=== PATIENT | male | born 1940 | race Caucasian/White ===

== ENCOUNTER 2017-06-05 08:19 | Outpatient (CLI) | payer MEDICARE ==
--- NOTE | 2017-06-05 08:45 | RAD ---
PA AND LATERAL VIEWS CHEST: HISTORY: Cough. FINDINGS: Comparison is made with the exam of 11/13/16. Changes of median sternotomy are again seen. Cardiomegaly persists. No confluent areas of consolida tion, pneumothorax, or pleural effusions are noted. Calcified pleural plaques are redemonstrated in the apices. There are mild degenerative changes in the spine. IMPRESSION: No radiographic evidence of acute cardiopulmonary process. POS: [facility]
== END 2017-06-05 08:20 | disposition home or self-care (01) ==
LOC: RAD-FRANK 08:19
PROVIDERS: ATTEND Nurse Practitioner Family
DX: R05 Cough (principal)
CPT/HCPCS: 71046

== ENCOUNTER 2018-02-02 15:19 | Outpatient (CLI) | payer MEDICARE ==
--- NOTE | 2018-02-02 16:50 | RAD ---
PA AND LATERAL CHEST: Comparison: 06-05-17 History: Shortness of breath. FINDINGS: Heart size is upper limits of normal with post op sternotomy changes. There has been development of a right hilar fullness with parenchymal changes involving the right middle lobe but also appear to be some changes in the lower lobe. Changes are probably related to an infiltrative process. An underlyin g mass is not totally excluded but no mass is appreciated on the previous exam. I would recommend fol low up chest films to resolution. IMPRESSION: 1. Right middle lobe and right lower lobe and parahilar parenchymal changes, probably related to infi ltrate. Underlying mass is not excluded and follow up is recommended. POS: [facility]
== END 2018-02-02 15:20 | disposition home or self-care (01) ==
LOC: RAD-FRANK 15:19
PROVIDERS: ATTEND Nurse Practitioner Family
DX: R06.02 Shortness of breath (principal)
CPT/HCPCS: 71046

== ENCOUNTER 2018-02-09 09:49 | Outpatient (CLI) | payer MEDICARE ==
--- NOTE | 2018-02-09 11:38 | RAD ---
PA AND LATERAL CHEST: HISTORY: A 77-year-old male with a history of follow-up pneumonia. COMPARISON: 02/02/2018 FINDINGS: Again noted is an abnormal opacity in the right mid chest, with some parenchymal changes, including t he right middle lobe and the posterior-superior aspect of the right lower lobe, as well as a nodular fullness in the right infrahilar region. This has not significantly changed when compared to the 06/2017 study. No acute process in the left chest. Heart size is normal. Postop midline sternotomy . IMPRESSION: Overall stable abnormal opacity in the right chest, including parenchymal changes in the right middle lobe and the right lower lobe, as well as nodular fullness in the right infrahilar region. Continued short-term followup over two to three weeks is recommended. If this abnormal opacity does not resolve in a several week time period, a follow-up chest CT scan at that point in time should probably be considered. CODE T POS: OFF
== END 2018-02-09 09:50 | disposition home or self-care (01) ==
LOC: RAD-FRANK 09:49
PROVIDERS: ATTEND Nurse Practitioner Family
DX: J18.9 Pneumonia, unspecified organism (principal); R91.8 Other nonspecific abnormal finding of lung field
CPT/HCPCS: 71046

== ENCOUNTER 2018-02-12 12:56 | Outpatient (CLI) | payer MEDICARE ==
--- NOTE | 2018-02-12 16:05 | CT ---
CT CHEST WITH CONTRAST: INDICATIONS: Chest mass. Pneumonia. COMPARISON: None. TECHNIQUE: Multiple axial tomograms obtained through the chest with IV enhancement. FINDINGS: There is a right hilar mass, which engulfs the right pulmonary arteries and right lower lobe bronchus , producing bronchial narrowing and peripheral dense atelectasis in the right lower lobe. It is diff icult to separate this mass from the dense parenchymal atelectasis. The approximated measurements ar e recorded at 6.5 cm craniocaudal, in the coronal plane, by approximately 4 cm in width. In the axia l plane, this measures up to 5 cm in AP dimension. Dense peripheral right lower lobe atelectasis, as noted above. There may be associated secondary infection and consolidation. There is a spiculated parenchymal mass in the right upper lobe, which is bilobed and has a total leigha urements in the axial plane of 2.1 cm. There is evidence of an adjacent smaller nodule at this same location, measuring 1.2 cm. Tiny, 5 mm pleural-based nodule posterior left lower lobe, mid lung field. There is mediastinal adenopathy. Large paratracheal lymph node measures 2.7 cm. Large subcarinal ar ea of confluent adenopathy measures up to 3.5 cm. Osseous structures appear unremarkable. There are numerous calcified mediastinal and left hilar lymph nodes, which are not enlarged, consiste nt with and old granulomatous infection. Images through the upper abdomen are unremarkable. The liver and spleen show granulomatous calcifica tion. IMPRESSION: 1. Large right hilar mass engulfing the right descending pulmonary artery and lower lobe bronchus. 2. Dense atelectasis in the right lower lobe is seen, difficult to separate from this hilar mass les ion. 3. A second spiculated, bilobed mass in the right upper lobe, as described above. There appears to be an adjacent 1.2 cm nodular density at this location as well. 4. Prominent mediastinal adenopathy, as described. A large subcarinal node has evidence of necrosis . 5. There is evidence of a prior granulomatous infection, as noted above. POS: [facility]
== END 2018-02-12 12:57 | disposition home or self-care (01) ==
LOC: CT 12:56
PROVIDERS: ATTEND Nurse Practitioner Family
DX: J18.9 Pneumonia, unspecified organism (principal); R22.2 Localized swelling, mass and lump, trunk; R59.0 Localized enlarged lymph nodes; R91.8 Other nonspecific abnormal finding of lung field; J98.11 Atelectasis
CPT/HCPCS: 71260; 82565

== ENCOUNTER 2018-02-14 17:54 | Inpatient (IN) | payer MEDICARE ==
[2018-02-14 18:26] LABS: #Basophils 0.2 thou/uL (0.0-0.2); #Eosinphils 0.3 thou/uL (0.0-0.7); #Lymphocytes 2.2 thou/uL (1.20-3.40); #Monocytes 1.2 thou/uL (0.11-0.59); #Neutrophils 10.1 thou/uL (1.40-6.50); %Basophils 1.4 % (0.0-1.0); %Eosinophils 2.4 % (0.0-10.0); %Lymphocytes 15.6 % (21.0-51.0); %Monocytes 8.6 % (0.0-10.0); %Neutrophils 72.1 % (42.0-75.0); Hemoglobin 14.6 g/dL (14.0-18.0); Mean Corpuscular HGB CONC 33.3 g/dL (32.0-36.0); Mean Corpuscular Hemoglobin 28.9 pg (27.0-31.0); Mean Corpuscular Volume 86.9 fL (78.0-98.0); Mean Platelet Volume 9.2 fL (7.4-10.4); Platelet Count 227 thou/uL (130-400); RBC Distribution Width 12.2 % (11.5-14.5); Red Blood Cell (RBC) Count 5.04 mill/uL (4.70-6.10)
[2018-02-14] MEDS ORDERED: Sodium Chloride 0.9% 100 ML ONE (18:36)
[2018-02-14] MEDS ORDERED: cefTRIAXone\\ROCEPHIN 2 GM VIAL ONE (18:36)
[2018-02-14 18:38] LABS: ALT (SGPT) 12 U/L (8-55); AST (SGOT) 64 U/L (5-34); Albumin 4.2 g/dL (3.4-4.8); Alkaline Phosphatase 78 U/L (40-150); Anion Gap 17 mmol/L (10-20); BUN (Urea Nitrogen) 14 mg/dL (8.4-25.7); Bilirubin, Total 0.4 mg/dL (0.2-1.2); Calc. Creatinine Clearance 0 mL/min (70-130); Calcium 9.8 mg/dL (7.8-10.44); Carbon Dioxide 23 mmol/L (23-31); Chloride 96 mmol/L (98-107); Estimated GFR-MDRD 60; Globulin 3.3 g/dL (2.4-3.5); Glucose 153 mg/dL (83-110); Potassium 3.9 mmol/L (3.5-5.1); Protein, Total 7.5 g/dL (5.8-8.1); Sodium 132 mmol/L (136-145)
[2018-02-14 18:39] LABS: CKMB 0.7 ng/mL (0-6.6)
--- NOTE | 2018-02-14 18:58 | RAD ---
PORTABLE CHEST: History: Shortness of breath. Comparison: 02-09-18. Review is also made of a CT of 02-12-18. FINDINGS: Heart size is enlarged. There are post op sternotomy changes. The left lung is clear. The consolidati on within the right lung base has improved as compared to the prior examination. The spiculated right upper lobe lung mass is more difficult to visualized on plain film but appears stable. IMPRESSION: 1. Right upper lobe lung nodule. 2. Improvement to the consolidation in the right lung base. Fullness in the right paratracheal and hi lar region is related to adenopathy as noted on previous CT. POS: [facility]
[2018-02-14] MEDS ORDERED: Azithromycin 500 MG VIAL ONE (19:00)
[2018-02-14] MEDS ORDERED: methylPREDNISolone Sod Succ/PF 125 MG/2 ML VIAL ONE (19:22)
[2018-02-14] MEDS ORDERED: Enoxaparin Sodium 100 MG/ML SYRINGE ONE (19:22)
[2018-02-14] MEDS ORDERED: Digoxin 0.5 MG/2 ML AMP ONE (20:21)
[2018-02-14 21:21] LABS: Bilirubin Negative (Negative); Blood, Urine Negative (Negative); Clarity Clear (Clear); Glucose, Urine (Dipstick) Negative (Negative); Leukocyte Negative (Negative); Nitrite Negative (Negative); Protein, Urine (Dipstick) Negative (Neg-Trace); Specific Gravity, Urine 1.015 (1.005-1.030); Urobilinogen 0.2 mg/dL (0.2-1.0); pH, Urine 6.5 (5.0-9.0)
[2018-02-14] MEDS ORDERED: Acetaminophen 325 MG TAB PO PRN (22:38)
[2018-02-14] MEDS ORDERED: Ondansetron HCl/PF 4 MG/2 ML Vial IVP PRN (22:38)
[2018-02-14] MEDS ORDERED: Ondansetron ODT 4 MG TAB SL PRN (22:38)
[2018-02-14] MEDS ORDERED: Diltiazem 125 MG in Sodium Chloride 0.9% 100 ML IVPB SCH (23:45)
[2018-02-14 23:47] VITALS: BMI 26.6
[2018-02-14] MEDS ORDERED: Sodium Chloride 0.9% 1,000 ML IV PRN (23:57)
[2018-02-15] MEDS ORDERED: Nitroglycerin 0.4 MG TAB (25 Tab Bottle) SL PRN (01:22)
[2018-02-15] MEDS ORDERED: Sodium Chloride 0.9% 1,000 ML IV SCH (01:30)
[2018-02-15 05:57] LABS: #Lymphocytes 0.8 thou/uL (1.20-3.40); #Monocytes 0.2 thou/uL (0.11-0.59); #Neutrophils 6.9 thou/uL (1.40-6.50); %Basophils 0.3 % (0.0-1.0); %Eosinophils 0.3 % (0.0-10.0); %Lymphocytes 10.2 % (21.0-51.0); %Monocytes 2.5 % (0.0-10.0); %Neutrophils 86.8 % (42.0-75.0); Hemoglobin 12.2 g/dL (14.0-18.0); Mean Corpuscular HGB CONC 32.6 g/dL (32.0-36.0); Mean Corpuscular Hemoglobin 29.7 pg (27.0-31.0); Mean Corpuscular Volume 91.2 fL (78.0-98.0); Mean Platelet Volume 7.5 fL (7.4-10.4); Platelet Count 216 thou/uL (130-400); RBC Distribution Width 12.2 % (11.5-14.5); Red Blood Cell (RBC) Count 4.11 mill/uL (4.70-6.10)
[2018-02-15 06:16] LABS: Anion Gap 13 mmol/L (10-20); BUN (Urea Nitrogen) 16 mg/dL (8.4-25.7); Calc. Creatinine Clearance 74 mL/min (70-130); Calcium 8.4 mg/dL (7.8-10.44); Carbon Dioxide 22 mmol/L (23-31); Chloride 103 mmol/L (98-107); Estimated GFR-MDRD 68; Glucose 245 mg/dL (83-110); Potassium 4.3 mmol/L (3.5-5.1); Sodium 134 mmol/L (136-145)
[2018-02-15] MEDS ORDERED: hydrALAZINE 20 MG/ML VIAL SLOW IVP PRN (07:50)
[2018-02-15] MEDS ORDERED: Senokot 8.6 MG TAB PO PRN (07:50)
[2018-02-15] MEDS ORDERED: Diabetic Tussin 200 MG/10 ML UDCUP PO PRN (07:50)
[2018-02-15] MEDS ORDERED: Chloraseptic Spray 180 ml Bottle PO PRN (07:50)
[2018-02-15] MEDS ORDERED: Loperamide HCl 2 MG CAP PO PRN (07:50)
[2018-02-15] MEDS ORDERED: Loratadine 10 MG TAB PO PRN (07:50)
[2018-02-15] MEDS ORDERED: HYDROcodone/Acetaminophen 5/325 mg Tablet PO PRN (07:50)
[2018-02-15] MEDS ORDERED: Artificial Tears 18 DROP/0.9 ML EA EYE PRN (07:50)
[2018-02-15] MEDS ORDERED: Famotidine 20 MG TAB PO PRN (07:50)
[2018-02-15] MEDS ORDERED: Eucerin (Mineral Oil/Petrolatum,White) 30 gm Jar TOP PRN (07:50)
[2018-02-15] MEDS ORDERED: Sodium Chloride 0.65% Nasal 44 ML BOT EA NARE PRN (07:50)
[2018-02-15] MEDS ORDERED: Milk Of Magnesia 30 ML UDCUP PO PRN (07:50)
[2018-02-15] MEDS ORDERED: Calcium Carbonate 500 MG ChewTAB PO PRN (07:50)
[2018-02-15] MEDS ORDERED: Temazepam 15 MG CAP PO PRN (07:50)
[2018-02-15] MEDS ORDERED: Dextrose 5% in Water 1,000 ML IV PRN (07:55)
[2018-02-15] MEDS ORDERED: Dextrose 50% Abboject 50 ML SYRINGE SLOW IVP PRN (07:55)
[2018-02-15] MEDS ORDERED: HumaLOG 300 UNITS/3 ML VIAL SC PRN (07:55)
[2018-02-15] MEDS ORDERED: Non-Formulary Item 1 EACH (Fish Oil/Dha/Epa [Fish Oil 1,200 Mg Fish Oil] 1 CAP) PO SCH (09:00)
[2018-02-15] MEDS ORDERED: Clopidogrel Bisulfate 75 MG TAB PO SCH (09:00)
[2018-02-15] MEDS ORDERED: SAW PALMETTO 500 MG PO SCH (09:00)
[2018-02-15] MEDS ORDERED: Ezetimibe 10 MG TAB PO SCH (09:00)
[2018-02-15] MEDS ORDERED: Digoxin 0.25 MG TAB PO SCH (09:00)
[2018-02-15] MEDS ORDERED: Prevnar 13-Val Conj/PF 0.5 ML SYRINGE IM ONE (09:00)
[2018-02-15] MEDS ORDERED: Aspirin 81 mg Enteric Coated Tablet PO SCH (09:00)
[2018-02-15] MEDS ORDERED: Atorvastatin Calcium 40 MG TAB PO SCH (09:00)
[2018-02-15] MEDS ORDERED: Digoxin 0.5 MG/2 ML AMP SLOW IVP SCH (09:15)
[2018-02-15] MEDS: Sodium Chloride 0.9% 1,000 ML IV SCH (11:00)
[2018-02-15] MEDS ORDERED: Lidocaine 4% PF 5 ML AMP NEB SCH (11:00)
--- NOTE | 2018-02-15 11:27 | CON ---
DATE OF CONSULTATION: 02/15/2018 Duglas Tobin is a 77-year-old gentleman from [place], [place], who is 95 kilograms, prese nted to the hospital with cough, shortness of breath and chest pain. His sats are 92% on room air, h is blood pressure in the ER was 100/68, pulse 120. He says he has been seeing a local physician and was given some antibiotics to which he felt better. Then he started coughing again, but no hemoptysi s. He lost about 5 pounds. Appetite has been poor. His CAT scan shows extensive mediastinal disease, right hilar mass, right upper lung mass. The patient is a long-time smoker, a pack a day, quit smoking 10 years ago. He smoked for about 30+ years, quit smoking about the time he had coronary artery disease, bypass graft surgery at [facility]. He says most days he can walk a block without getting markedly short of breath. 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 PAST MEDICAL HISTORY: BPH, coronary artery disease, hypertension, high cholesterol, cough, probably COPD. PAST SURGICAL HISTORY: Bypass, tonsils, appendix. MEDICATIONS: From home includes metformin 1000 twice a day, triamterene 1 a day, Actos 15, nitrogly cerin, metoprolol 25, Tradjenta 5, Plavix 75, calcium, aspirin, ____. ALLERGIES: None. REVIEW OF SYSTEMS: Otherwise, 10-point negative. PHYSICAL EXAMINATION: GENERAL: Sats 90% on room air, pulse 121, temperature 98, blood pressure 139/90. CHEST: Chest reveals decreased breath sounds, wheezing, right greater than left. CARDIAC: Supraventricular tachycardia. ABDOMEN: Soft. NEURO: He is awake, alert, responsive. EXTREMITIES: No edema. LABORATORY: Sodium is 134, glucose 245. White count 8000, H&H 12 and 35, platelet count 260. IMPRESSION: 1. Right hilar mass engulfing the pulmonary artery lower lobe bronchus. 2. Atelectasis of the right lower lobe. 3. Right upper lung spiculated mass. 4. Extensive basilar adenopathy including cervical adenopathy. 5. Diabetes. 6. Coronary artery disease. 7. Hypertension. PLAN: A bronchoscopy will be performed. In the meantime, we will start him on steroids and neb neo tments. Further recommendations after above. This is a consultation note, 70 minutes, 50% spent in direct patient care.
[2018-02-15] MEDS: Cefepime 2 GM in Sodium Chloride 0.9% 100 ML IVPB SCH ×2 (11:54→20:42)
--- NOTE | 2018-02-15 14:12 | PDOC.PN ---
- Subjective Encounter Start Date: 02/15/18 Encounter Start Time: 09:30 -: old records requested/rev Patient seen and examined. No new complaints. No overnight events - Objective Resuscitation Status: Resuscitation Status FULL:Full Resuscitation MAR Reviewed: Yes Vital Signs & Weight: Vital Signs (12 hours) Temp Pulse Resp BP Pulse Ox 02/15/18 11:48 97.8 F 138 H 20 111/79 93 L 02/15/18 11:30 106 H 16 02/15/18 09:42 121 H 02/15/18 08:50 98.1 F 107 H 16 135/90 94 L 02/15/18 03:23 98.4 F 97 17 98/69 92 L Weight Weight 196 lb 6.4 oz I&O: 02/14/18 02/15/18 02/16/18 06:59 06:59 06:59 Intake Total 1240 Output Total 700 Balance 540 Result Diagrams: 02/15/18 05:17 02/15/18 05:17 Additional Labs: Accuchecks 02/15/18 13:05 POC Glucose 234 H Radiology Reviewed by me: Yes (CT chest, chest xray reviewed) EKG Reviewed by me: Yes Phys Exam - Physical Examination Constitutional: NAD HEENT: moist MMs, sclera anicteric Neck: no JVD, supple Respiratory: no wheezing, no rales, no rhonchi Cardiovascular: RRR, no significant murmur, no rub Gastrointestinal: soft, non-tender, no distention, positive bowel sounds Musculoskeletal: no edema, pulses present Neurological: non-focal, normal sensation Psychiatric: normal affect, A&O x 3 Skin: no rash, normal turgor Dx/Plan (1) Atrial fibrillation with RVR Code(s): I48.91 - UNSPECIFIED ATRIAL FIBRILLATION Status: Acute (2) Community acquired bacterial pneumonia Code(s): J15.9 - UNSPECIFIED BACTERIAL PNEUMONIA Status: Acute (3) Hilar mass Code(s): R91.8 - OTHER NONSPECIFIC ABNORMAL FINDING OF LUNG FIELD Status: Acute (4) Hypotension Status: Acute (5) Mediastinal lymphadenopathy Code(s): R59.0 - LOCALIZED ENLARGED LYMPH NODES Status: Acute (6) Pulmonary nodule Code(s): R91.1 - SOLITARY PULMONARY NODULE Status: Acute (7) BPH (benign prostatic hyperplasia) Code(s): N40.0 - BENIGN PROSTATIC HYPERPLASIA WITHOUT LOWER URINRY TRACT SYMP Status: Chronic (8) CAD (coronary artery disease) Code(s): I25.10 - ATHSCL HEART DISEASE OF [place] CORONARY ARTERY W/O ANG PCTRS Status: Chronic (9) Diabetes type 2, controlled Code(s): E11.9 - TYPE 2 DIABETES MELLITUS WITHOUT COMPLICATIONS Status: Chronic (10) Dyslipidemia Code(s): E78.5 - HYPERLIPIDEMIA, UNSPECIFIED Status: Chronic (11) Gout Code(s): M10.9 - GOUT, UNSPECIFIED Status: Chronic (12) Hypertension Code(s): I10 - ESSENTIAL (PRIMARY) HYPERTENSION Status: Chronic - Plan cont current plan of care, plan discussed w/ family, continue antibiotics, respiratory therapy * digoxin loading for afib * will need bronchoscopy for lung mass * continue cefepime and levaquin for suspected pneumonia given recent antibiotics exposure and failure of therapy * discussed with * echo done and reviewed. * home medication reconciled Review of Systems - Review of Systems ENT: negative: Ear Pain, Ear Discharge, Nose Pain, Nose Discharge, Nose Congestion, Mouth Pain, Mouth Swelling, Throat Pain, Throat Swelling, Other Respiratory: negative: Cough, Dry, Shortness of Breath, Hemoptysis, SOB with Excertion, Pleuritic Pain, Sputum, Wheezing Cardiovascular: negative: chest pain, palpitations, orthopnea, paroxysmal nocturnal dyspnea, edema, light headedness, other Gastrointestinal: negative: Nausea, Vomiting, Abdominal Pain, Diarrhea, Constipation, Melena, Hematochezia, Other Genitourinary: negative: Dysuria, Frequency, Incontinence, Hematuria, Retention , Other Musculoskeletal: negative: Neck Pain, Shoulder Pain, Arm Pain, Back Pain, Hand Pain, Leg Pain, Foot Pain, Other Skin: negative: Rash, Lesions, Ravi, Bruising, Other - Medications/Allergies Allergies/Adverse Reactions: Allergies Allergy/AdvReac Type Severity Reaction Status Date / Time No Known Allergies Allergy Verified 02/14/18 22:36 Medications: Current Medications Acetaminophen (Tylenol) 650 mg PO Q4H PRN PRN Reason: Headache/Fever or Pain Stop: 02/20/18 08:00 Hydrocodone Bitart/Acetaminophen ([place] 5/325) 1 tab PO Q4H PRN PRN Reason: Moderate Pain (4-6) Albuterol/Ipratropium (Duoneb) 3 ml NEB Q3H PRN PRN Reason: Dyspnea/Wheezing/SOB Stop: 02/19/18 08:00 Albuterol/Ipratropium (Duoneb) 3 ml NEB WILLCALL [facility] Stop: 02/15/18 16:00 Last Admin: 02/15/18 11:30 Dose: 3 ml Albuterol/Ipratropium (Duoneb) 3 ml NEB [id number] [facility] Last Admin: 02/15/18 11:34 Dose: 3 ml Allopurinol (Zyloprim) 100 mg PO DAILY [facility] Artificial Tears (Tears Naturale) 0 drop EA EYE PRN PRN PRN Reason: Dry Eyes Ascorbic Acid (Vitamin C) 1,000 mg PO DAILY [facility] Atorvastatin Calcium (Lipitor) 40 mg PO HS [facility] Calcium Carbonate (Caltrate) 600 mg PO BID [facility] Calcium Carbonate (Tums) 1,000 mg PO Q4H PRN PRN Reason: Heartburn or Indigestion Cholecalciferol (Vitamin D3) 1,000 units PO DAILY [facility] Dextrose/Water (Dextrose 50%) 25 gm SLOW IVP PRN PRN PRN Reason: Hypoglycemia Digoxin (Lanoxin) 0.25 mg SLOW IVP Q6H [facility] Stop: 02/15/18 21:31 Digoxin (Lanoxin) 0.125 mg PO QAM [facility] Ezetimibe (Zetia) 10 mg PO HS [facility] Enoxaparin Sodium (Lovenox) 40 mg SC 0900 [facility] Famotidine (Pepcid) 20 mg PO BIDPRN PRN PRN Reason: Heartburn or Indigestion Finasteride (Proscar) 5 mg PO DAILY [facility] Fish Oil (Fish Oil) 1,000 mg PO DAILY [facility] Glucagon (Glucagon) 1 mg IM PRN PRN PRN Reason: Hypoglycemia Guaifenesin (Mucinex) 600 mg PO Q12HR [facility] Guaifenesin (Robitussin Sf) 200 mg PO Q4H PRN PRN Reason: Cough Hydralazine HCl (Apresoline) 10 mg SLOW IVP Q4H PRN PRN Reason: Systolic BP > 180 Sodium Chloride (Normal Saline 0.9%) 1,000 mls @ 0 mls/hr IV .Q0M PRN PRN Reason: SBP < 90 Cefepime HCl 2 gm/ Sodium (Chloride) 100 mls @ 200 mls/hr IVPB Q12HR [facility] Last Admin: 02/15/18 11:54 Dose: 100 mls Levofloxacin 750 mg/ Device 150 mls @ 100 mls/hr IVPB 0900 [facility] Last Admin: 02/15/18 09:52 Dose: 150 mls Dextrose/Water (D5w) 1,000 mls @ 0 mls/hr IV .Q0M PRN PRN Reason: Hypoglycemia Sodium Chloride (Normal Saline 0.9%) 1,000 mls @ 50 mls/hr IV .Q20H [facility] Insulin Human Lispro (Humalog) 0 units SC .MODERATE SLIDING SC PRN PRN Reason: Moderate [place]al Scale Insulin Human Lispro (Humalog) 0 units SC .BEDTIME SLIDING SC PRN PRN Reason: Bedtime Correctional Scale Lidocaine HCl (Xylocaine 4% Pf) 5 ml NEB WILLCALL [facility] Stop: 02/15/18 16:00 Loperamide HCl (Imodium) 2 mg PO PRN PRN PRN Reason: Diarrhea/Loose Stools Loratadine (Claritin) 10 mg PO DAILYPRN PRN PRN Reason: Sinus Symptoms Magnesium Hydroxide (Milk Of Magnesium) 30 ml PO DAILYPRN PRN PRN Reason: Constipation Methylprednisolone Sodium Succinate (Solu-Medrol) 40 mg IVP Q6HR [facility] Metoprolol Tartrate (Lopressor) 12.5 mg PO BID [facility] Mineral Oil/White Petrolatum (Eucerin Cream) 0 gm TOP BIDPRN PRN PRN Reason: Dry Skin Multivitamins (Theragran) 1 tab PO DAILY [facility] Ondansetron HCl (Zofran) 4 mg IVP Q6H PRN PRN Reason: Nausea/Vomiting Stop: 02/20/18 08:00 Ondansetron HCl (Zofran Odt) 4 mg SL Q6H PRN PRN Reason: Nausea/Vomiting Stop: 02/19/18 08:00 Pantoprazole Sodium (Protonix) 40 mg PO DAILY [facility] (Saw Cordova [Saw (Cordova] 500 Mg)) 1 each PO DAILY [facility] Phenol (Chloraseptic [place] 180 Ml Bot) 0 ml PO PRN PRN PRN Reason: Sore Throat Pioglitazone HCl (Actos) 15 mg PO DAILY [facility] Saccharomyces Boulardii (Florastor) 250 mg PO DAILY [facility] Senna (Senokot) 2 tab PO HSPRN PRN PRN Reason: Constipation Sodium Chloride ([place] Nasal [place] 0.65%) 0 ml EA NARE QIDPRN PRN PRN Reason: Nasal Congestion Temazepam (Restoril) 15 mg PO HSPRN PRN PRN Reason: Insomnia Vitamin B Complex/Vit C/Folic Acid (Nephro-Melchor Tablet) 1 tab PO DAILY [facility]
--- NOTE | 2018-02-15 14:19 | CON ---
DATE OF CONSULTATION: 02/15/2018. INDICATION FOR CONSULTATION: A 77-year-old patient with new onset atrial fibrillation or flutter. HISTORY OF PRESENT ILLNESS: This very unfortunate 77-year-old gentleman who has been followed by Dr. Soni for many years has undergone bypass surgery in 2005. He had bypass surgery, I believe 3-vess el, we are still waiting for the reports. He has been followed by Dr. Soni on a routine basis. He saw him about a week ago and everything was in order. He had a last stress test approximately a yea r ago and had an echocardiogram also approximately a year ago and is scheduled to undergo further int erventions or further evaluation when he sees him next time in the office. He had a cardiac catheter ization approximately one year ago and said that one artery was somewhat small, but it was best to co ntinue to treat it medically. He has not had any significant cardiac complaints. He does occasional ly have some chest tightness. He has been having a recent cough about 3-4 weeks, was treated by anti biotics. It unfortunately persisted and he also has an abnormal chest x-ray as well as CT scan which shows evidence of probably mediastinal mass which may be malignant. He is scheduled to undergo a bi opsy tomorrow by the occupational medicine physician. Otherwise, he has also lost about 5 pounds and appetite has been decreased. He has a right hilar mass and a right upper lung mass which may be malignant and will be evaluated tomorrow. Unfortunately, on admission, the patient was noted to have atrial flutter with rapid ventricular response. He has been on medical management, but apparently continues to have elev ated heart rates. He had been placed on IV diltiazem. This was discontinued after the patient devel oped bradycardia, had a pause. At this time, he has been given also digoxin and the rate is still in the 120s to 130. With his atrial flutter, I did do a carotid massage and just after a couple of sec onds, the patient had a 3-second pause associated with the carotid massage. We will ask for electrop hysiologist to see this gentleman also. He denies any chest pain or shortness of breath or symptoms at this time associated with the rapid heart rate. EKG also does not show any significant ischemia a ssociated with the heart rate at this time. PAST MEDICAL HISTORY: Significant for the coronary artery disease, bypass surgery. He had a right c arotid endarterectomy, has hypertension, hypercholesterolemia. He has probably COPD. He has had a r ecent cough. He has benign prostatic hypertrophy. PAST SURGICAL HISTORY: Included tonsillectomy and appendectomy and a right carotid endarterectomy as well as bypass surgery. MEDICATIONS PRIOR TO ADMISSION: Included metformin, triamterene, nitroglycerin, Actos, metoprolol, P lavix, Tradjenta, calcium, and aspirin. ALLERGIES: None. REVIEW OF SYSTEMS: He wears glasses, has been complaining of a cough. Has nocturia 4-5 times a nigh t. Otherwise, 12-point review of systems unremarkable. FAMILY HISTORY: Noncontributory. PHYSICAL EXAMINATION: GENERAL: Reveals a well-developed, well-nourished gentleman who is in no acute distress at this time . VITAL SIGNS: Show blood pressure of 111/79, heart rate is still in the 120s to 130s with atrial flut ter, respiratory rate 20, O2 saturation 93%. He is afebrile. HEENT: Shows head to be normocephalic and atraumatic. He has well healed surgical incision of the r ight carotid area after carotid endarterectomy. There are no bruits noted. CHEST: Actually, he has some scattered rhonchi, more so on the left side than the right side. He payne d no wheezing noted at this time. CARDIOVASCULAR: Exam reveals a tachycardia, but appears to be regular. There were no gross murmurs, heaves, thrills, bruits, or rubs. ABDOMEN: Soft and nontender with positive bowel sounds, some obesity is present. No masses were pal pable. EXTREMITIES: Show no clubbing, cyanosis or edema. Pedal pulses are present. NEUROLOGIC: The patient appears to be fully intact. SKIN: Warm and dry. LABORATORY AND X-RAY FINDINGS: Shows potassium of 4.3, creatinine of 1.06, blood sugar is 153-245. BNP was 185. His hemoglobin was 12.2, WBC of 14. Urinalysis was unremarkable. Cardiac enzymes are negative. His chest x-ray and CT scan show evidence of abnormalities noted above. IMPRESSION: 1. Atrial flutter with rapid ventricular response. We will need to try to lower the heart rate. He is not able to tolerate the diltiazem due to the bradycardia. We will try and treat him with digoxi n and most likely, he will need to undergo an ablation by the eight section blower. We will ask him t o see him in consultation today. In the meantime, we will try to find some medicine to better contro l the heart rate without causing too much bradycardia. We may start him on low dose beta blockers. He had been on metoprolol in the past and should be able tolerate the beta blockers. 2. History of lung mass. This will be dealt by the occupational medicine physician and the patient will need to under go a biopsy tomorrow. 3. Diabetes, will be dealt by the primary care service. 4. Hypertension. This is under reasonable control at this time. We would be more than happy to con claudiaue to follow the patient with you. From a coronary standpoint, he appears to be stable. We will try to obtain the records from Dr. Soni's office as he did have a cardiac catheterization 1 year ag o and was told, he did have 1 vessel with some narrowing, but this would best be treated medically. He apparently also had a stress test last year as well as an echocardiogram. We will see those for denis maier. His echocardiogram at this time shows a normal ejection fraction with mild tricuspid valv e regurgitation, trace mitral valve regurgitation and mild dilatation of left atrium with tachycardia present.
--- NOTE | 2018-02-15 14:24 | HP ---
PRIMARY CARE DOCTOR FOR THIS PATIENT: . CODE STATUS: FULL CODE. TIME OF EVALUATION 1:10 a.m. CHIEF COMPLAINT FOR THIS PATIENT: Shortness of breath. HISTORY OF PRESENT ILLNESS: This is a 77-year-old male patient with past medical history of coronary artery disease, diabetes type 2, BPH, hyperlipidemia, hypertension. The [facility] after having severe, gradually worsening shortness of breath. The patient reported that he had bee n diagnosed with pneumonia about 3 weeks ago by his primary doctor. He completed cycle of antibiotic s. The patient continued to have the same problems and returned to see the doctor because now he was having fever. During evaluation , he was found to have also multiple lung masses. This is to be new. The patient has had significant weight loss of about 15-20 pounds in the last month that wa s unintentional, symptoms were severe. REVIEW OF SYSTEMS: Constitutional: The patient had fever, chills, generalized weakness. Respirator y: Cough, no sputum production. The patient reported shortness of breath. Cardiovascular: No ches t pain or palpitations. Gastrointestinal: No nausea, no vomiting, diarrhea or abdominal pain. [employer]: No dizziness, headache or feeling lightheaded. Genitourinary: No burning with urination. Extremi ties: No leg swelling. All other systems reviewed and negative except for the findings mentioned ab ove. PAST MEDICAL HISTORY: Was mentioned in the HPI. PSYCHIATRIC HISTORY: No previous psych history. SOCIAL HISTORY: No alcohol, no drugs. Former smoker, quit smoking more than 10 years ago. FAMILY HISTORY: Reviewed and noncontributory for current presentation. KNOWN ALLERGIES: No known drug allergies. REPORTED MEDICATIONS: Aspirin 81, calcium citrate, Centrum Silver, Plavix, finasteride, metformin, m etoprolol, Nitrostat, pantoprazole, pioglitazone, saw palmetto, Tradjenta, triamterene, hydrochloroth iazide, vitamin C, vitamin D, omega 3 fatty acids, fish oil, moexipril, Vytorin, Zyloprim, Super B co mplex. PHYSICAL EXAMINATION: VITAL SIGNS: On presentation, blood pressure 100/68 with heart rate 120, respiratory rate was 28, te mperature 98.4, oxygen saturation 93 on room air. GENERAL APPEARANCE: The patient is alert, oriented, not in acute distress. HEENT: Normal conjunctivae. Moist oral mucosa. Anicteric. NECK: No JVD. LUNGS: Bilateral air entry. The patient has bilateral rales. No wheezes. Symmetrical expansion. CARDIOVASCULAR: The patient is tachycardic, irregular rhythm. No murmurs, no gallop, mild bilateral leg edema. ABDOMEN: Soft, normal bowel sounds. MUSCULOSKELETAL: Baseline range of motion and strength. No tenderness. SKIN: Warm and intact. No pallor, no rash, no redness. Peripheral pulses are present. Capillary r efill seems to be intact. NEUROLOGIC: No evidence of any new focal weakness. Baseline speech. Cranial nerves seem to be inta ct. PSYCHIATRIC: The patient is in good mood. No anxiety, oriented, optimal judgment. IMAGING DATA: EKG was reviewed. The patient has had atrial fibrillation with rapid ventricular resp onse at the rate of 122. This was discussed with her family physician from ER. Chest x-ray was revi ewed by the radiologist. The patient has consolidation right lower lobe that seems to be improving c ompared with previous one. The patient has fullness of the right perihilar region. LABORATORY DATA: Labs were reviewed. The patient has white count 14, MCV 86.9, platelet count 237. Chemistry: Sodium 132, potassium 3.9, chloride 96, carbon dioxide 23, anion gap 17, BUN 14, creatin ine 1.17, GFR 60, glucose 153. Lactic acid 1.9, calcium 9.8, total bilirubin 0.4, AST 64, ALT 12. T roponin was negative. Beta natriuretic peptide was 195. Serum total protein 7.5, albumin 4.2, globu maria de jesus 3.3, albumin globulin ratio is 1.3. Urine was done and was negative. ASSESSMENT AND PLAN: The patient will be placed in the hospital with following medical problems. 1. Possible lung cancer. The patient has significant weight loss around 20 pounds in the past 1-2 m onths, that was intentional. The patient has multiple masses in the bilateral lungs and also possibl e lymph nodes in the mediastinum. The patient might benefit from oncology evaluation, further arrang ement for outpatient workup and treatment. 2. Possible or infected lung cancer with pneumonia in the right lower lobe. The patient already rec eived antibiotics. The patient did not resolve. We will place the patient on antibiotics here. We will monitor. We will adjust treatment as needed. We will follow up cultures. I will give respirat ory treatment as needed. 3. Hyponatremia with sodium of 132, is mild, no need for any acute intervention. We will monitor. We will adjust treatment as needed. 4. Hyperglycemia due to uncontrolled diabetes type 2. Place the patient on sliding scale, glucose 1 53, and diabetic diet is recommended. 5. Atrial fibrillation with rapid ventricular response. This is likely triggered by sepsis. The jaylen campbell has had a blood pressure on the lower side. We will hydrate. We will monitor. The patient wa s given some digoxin initially with heart rate does continue to be high likely due to sepsis. We dexter l treat the underlying condition. 6. Deep venous thrombosis prophylaxis. 7. History of hyperlipidemia. We will reconcile home medications. Low cholesterol diet is advised. 8. History of hypertension. The patient's blood pressure is on the low side due to underlying sepsi s. We will monitor. We will adjust treatment as needed.
[2018-02-15] MEDS: Calcium Carbonate 600 MG TAB PO SCH ×2 (14:26→20:41)
[2018-02-15] MEDS: Fish Oil 1,000 MG CAP PO SCH (14:27)
[2018-02-15] MEDS: Allopurinol 100 MG TAB PO SCH (14:27)
[2018-02-15] MEDS: Ascorbic Acid 500 mg Chewable Tablet PO SCH (14:27)
[2018-02-15] MEDS: Finasteride 5 MG TAB PO SCH (14:27)
[2018-02-15] MEDS: Enoxaparin Sodium 40 MG/0.4 ML SYRINGE SC SCH (14:27)
[2018-02-15] MEDS: Folic Acid/Vit B Comp W-C PO SCH (14:28)
[2018-02-15] MEDS: guaiFENesin ER 600 MG TAB PO SCH ×2 (14:28→20:41)
[2018-02-15] MEDS: Multivit, Therapeutic 1 TAB PO SCH (14:28)
[2018-02-15] MEDS: Pioglitazone HCl 15 MG TAB PO SCH (14:28)
[2018-02-15] MEDS: Saccharomyces boulardii 250 MG CAP PO SCH (14:29)
[2018-02-15] MEDS: methylPREDNISolone Sod Succ/PF 125 MG/2 ML VIAL IVP SCH ×3 (14:37→23:53)
[2018-02-15] MEDS: Digoxin 0.5 MG/2 ML AMP SLOW IVP SCH ×2 (15:26→20:42)
[2018-02-15] MEDS: HumaLOG 300 UNITS/3 ML VIAL SC PRN (17:33)
[2018-02-15] MEDS ORDERED: cefTRIAXone\\ROCEPHIN 1 GM in Sodium Chloride 0.9% 100 ML IVPB SCH (18:00)
--- NOTE | 2018-02-15 19:44 | CON ---
DATE OF CONSULTATION: 02/14/2018 ELECTROPHYSIOLOGY CONSULTATION REPORT REFERRING PHYSICIAN: Rosario Hinkle M.D. I am seeing Mr. 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 Typical atrial flutter, which is newly found with rapid ventricular rates. 2. History of coronary artery disease with coronary artery bypass grafting surgery in 2005 and myoca rdial infarction in 09/2017, followed by Dr. Soni. 3. Lung mass, undergoing a pulmonary evaluation, associated weight loss. 4. Risk factors including hypertension, hyperlipidemia, history of smoking. 5. History of chronic obstructive pulmonary disease. 6. Prior history of vascular heart disease with right carotid endarterectomy. 7. History of benign prostatic hypertrophy. ALLERGIES: None. MEDICATIONS AT HOME: Included metformin, triamterene, nitroglycerin, Actos, metoprolol, Plavix, Trad jenta, calcium and aspirin. SUBJECTIVE: Mr. Tobin is here due to ongoing cough for the last 3-4 weeks, treated with antibiot ics, which persisted. CT scan was suggestive of mediastinal mass and malignancy is suspected. He is to undergo scheduled pulmonary biopsy tomorrow. He denies palpitations, dizziness, loss of consciousness. He denies current chest pains or angina. No stroke-like symptoms, no neurological deficits. No fever, chills or cough. Rest of 12-point syst em otherwise unremarkable except for unintentional weight loss over 5 pounds and decreased appetite. SOCIAL HISTORY: The patient is a prior smoker. Denies ETOH or drug abuse. FAMILY HISTORY: Noncontributory. Denies ETOH or drug abuse. OBJECTIVE DATA: VITAL SIGNS: Blood pressure /79, respirations 20, temperature 97.8 degrees Fahrenheit. GENERAL: He is alert and oriented man, in no apparent distress. NECK: Supple. Jugular veins not distended. CHEST: Coarse without crackles. CARDIOVASCULAR: Heart sounds are irregularly irregular. S1, S2 are variable. No murmur or gallop. ABDOMEN: Benign. Bowel sounds are positive. EXTREMITIES: Lower extremities without edema, clubbing or cyanosis. Pulses are adequate. NEUROLOGIC: The patient is nonfocal. MUSCULOSKELETAL: No joint swelling or deformities. SKIN: Without rash. DATABASE: The EKGs reviewed revealing typical isthmus-dependent atrial flutter with 2:1 AV conductio n. During carotid sinus massage, clear regular flutter waves are documented suggestive of again the cavo-tricuspid isthmus dependent morphology. LABORATORY DATA: White count is 8.0, hemoglobin 12.2, platelet count is 216,000. Sodium 134, potass ium 4.3, BUN is 16, creatinine 1.06. The 2D echo is suggestive of LVEF of 55%-60%, mild right atrial enlargement, trace MR, mild left atrial enlargement, mild TR is seen. ASSESSMENT AND PLAN: Mr. Tobin is a 77-year-old man with prior history of coronary artery diseas e and remote bypass surgery in 2005, more recent myocardial infarction, but still with preserved LV s ystolic function, who presented with a persistent cough and undergoing an evaluation of potentially m alignant mediastinal mass with lung biopsy tomorrow. He was also found to be in atrial flutter, which is an incidental finding. His symptoms are relative ly small in this regard. At this point, he has no dizziness or loss of consciousness. He does not f eel his heart is palpitating. We discussed the significance of his atrial flutter and potential treatment options. I explained to him the chance of stroke for which he likely would benefit from anticoagulation, although it is diffi cult to initiate that hence the upcoming biopsy tomorrow. Retirement though this should be strongly co nsidered. I also discussed some difficulty with rate control Dr. Hinkle initiated beta tyra therapy to julia rivas. Hopefully, he can tolerate it from the pulmonary standpoint. He is also receiving digoxin. I also discussed other options like JORGE guided cardioversion or ablation therapies. He is interested in these, but at this point would like to have further input from Dr. Soni, his usual senior behavioral scientist . I plan to talk to him in this regard. Our plan is at this point: 1. Continue rate controlling efforts. 2. Start Lovenox once cleared by social insurance specialist for anticoagulation and eventually no anticoag ulants may be considered like Xarelto or Eliquis. 3. Consider JORGE guided cardioversion versus ablation once medically possible. We will follow with you. Thank you for allowing me to participate in the care of this patient.
[2018-02-15] MEDS ORDERED: Azithromycin 500 MG in Sodium Chloride 0.9% 250 ML 250 ML IVPB SCH (20:30)
[2018-02-15] MEDS: Metoprolol Tartrate 25 MG TAB PO SCH (20:40)
[2018-02-15] MEDS: Ezetimibe 10 MG TAB PO SCH (20:41)
[2018-02-15] MEDS: Atorvastatin Calcium 40 MG TAB PO SCH (20:42)
[2018-02-15] MEDS ORDERED: [UNRECOGNIZED DRUG - OTHER] PO SCH (21:00)
[2018-02-15] MEDS ORDERED: EZETIMIBE PO SCH (21:00)
[2018-02-15] MEDS ORDERED: SIMVASTATIN PO SCH (21:00)
[2018-02-16] MEDS: methylPREDNISolone Sod Succ/PF 125 MG/2 ML VIAL IVP SCH ×4 (05:37→23:41)
[2018-02-16] MEDS ORDERED: Midazolam HCl 2 mg/2 ml Vial ONE (07:19)
[2018-02-16] MEDS ORDERED: Fentanyl 100 MCG/2 ML VIAL ONE (07:19)
[2018-02-16] MEDS ORDERED: Benzocaine 20% Spray 60 ML CAN ONE (07:20)
[2018-02-16] MEDS ORDERED: Lidocaine 1% (PF) 30 ML VIAL ONE (07:20)
[2018-02-16] MEDS ORDERED: Lidocaine 4% PF 5 ML AMP NEB SCH (07:45)
[2018-02-16] MEDS ORDERED: Lidocaine 2% PF 100 mg/5 ml Syringe ONE (08:07)
[2018-02-16] MEDS ORDERED: EPINEPHrine 1 MG/10 ML Abboject SYRINGE ONE ×3 (08:19→08:32)
[2018-02-16] MEDS ORDERED: Digoxin 0.125 MG TAB PO SCH (09:00)
--- NOTE | 2018-02-16 09:24 | OP ---
DATE OF PROCEDURE: 02/16/2018 SURGEON: Dr. Jordy Maciel PROCEDURE: Bronchoscopy with biopsy. INDICATIONS: Right lung endobronchial mass, extensive adenopathy, rule out bronchogenic carcinoma. POST-BRONCHOSCOPY DIAGNOSES: Right lung endobronchial mass, extensive adenopathy, rule out bronchoge marco a carcinoma. After informed consent, the patient received DuoNeb, 4% lidocaine. During the procedure, he received 3 of Versed and 75 fentanyl. The right nostril was prepped with lidocaine jelly. The flexible vide o bronchoscope was passed through the right nostril. Pharynx, upper pharynx, and vocal cords were vi sualized, unremarkable. On entering the trachea, this was normal. Roslyn was sharp. The left lung was inspected initially, left upper and left lower lobe was unremarkable. No endobronchial obstructi on or blood or pus was seen. Right lung was inspected. Right upper lung appeared to be unremarkable . There was no endobronchial disease, mainstem bronchus was normal. On entering the bronchus interm edius there was marked nodularity and thickening of the mucosa with marked narrowing all the way down to the basilar segment. The middle lobe segment was open. However, I was unable to visualize any o f the basilar subsegments because of the marked thickening of the spores involving the anterior media l, lateral, and posterior basilar segments. The area was lavaged with normal saline. Following this, biopsies from the markedly nodular mucosa c orresponding to the anterior lateral spurs were done. There was some brisk bleeding. Multiple biops ies obtained at least 4, thereafter brushings were obtained from the same abnormal mucosa to the righ t lower lobe. Profuse bleeding occurred from the biopsy and the brushings. He required 22 mL of 1:1 0,000 epinephrine to slow the bleeding down which eventually decreased substantially. The patient di d cough a large volume of blood. He was placed on a Ventimask to maintain a sat 93% -94%. Post bronchoscopy we observed him for at least 10-15 minutes with sats remaining 94% on 40%. He was much more comfortable, blood pressure is 130/80, pulse was 100. The patient otherwise tolerated the procedure well. Unfortunately, the bleeding was aggravated by hi m taking Plavix and aspirin. The washings will be sent for cytology, AFB smear culture, fungal smear and culture, routine Gram sta in and C&S. Biopsies sent to Pathology, brushings sent for cytology. The patient is being observed on a monitored bed. Obviously, if his hemoptysis persists a bronchosco py performed right away. Otherwise, n.p.o. for an hour. Results of the biopsy will be revealed to the patient and family.
--- NOTE | 2018-02-16 10:39 | PDOC.PN ---
- Subjective Encounter Start Date: 02/16/18 Encounter Start Time: 08:15 Patient seen and examined. No overnight events this morning he had bronchoscopy, he needs high flow oxygen after procedure - Objective Resuscitation Status: Resuscitation Status FULL:Full Resuscitation MAR Reviewed: Yes Vital Signs & Weight: Vital Signs (12 hours) Temp Pulse Resp BP Pulse Ox 02/16/18 09:13 105 H 24 H 166/85 H 95 02/16/18 03:38 97.7 F 75 20 113/56 L 93 L Weight Weight 195 lb 9.6 oz I&O: 02/15/18 02/16/18 02/17/18 06:59 06:59 06:59 Intake Total 1240 1481 Output Total 700 1450 Balance 540 31 Result Diagrams: 02/15/18 05:17 02/15/18 05:17 Additional Labs: Accuchecks 02/16/18 02/15/18 02/15/18 05:40 17:10 13:05 POC Glucose 245 H 277 H 234 H EKG Reviewed by me: Yes Phys Exam - Physical Examination Constitutional: NAD HEENT: PERRLA, moist MMs, sclera anicteric Neck: no JVD, supple reduced air entry Cardiovascular: no significant murmur, irregular Gastrointestinal: soft, non-tender, no distention, positive bowel sounds Musculoskeletal: no edema, pulses present Neurological: non-focal, normal sensation Lymphatic: no nodes Psychiatric: normal affect, A&O x 3 Skin: no rash, normal turgor Dx/Plan (1) Atrial fibrillation with RVR Code(s): I48.91 - UNSPECIFIED ATRIAL FIBRILLATION Status: Acute (2) Community acquired bacterial pneumonia Code(s): J15.9 - UNSPECIFIED BACTERIAL PNEUMONIA Status: Acute (3) Hilar mass Code(s): R91.8 - OTHER NONSPECIFIC ABNORMAL FINDING OF LUNG FIELD Status: Acute (4) Hypotension Status: Resolved (5) Mediastinal lymphadenopathy Code(s): R59.0 - LOCALIZED ENLARGED LYMPH NODES Status: Acute (6) Pulmonary nodule Code(s): R91.1 - SOLITARY PULMONARY NODULE Status: Acute (7) BPH (benign prostatic hyperplasia) Code(s): N40.0 - BENIGN PROSTATIC HYPERPLASIA WITHOUT LOWER URINRY TRACT SYMP Status: Chronic (8) CAD (coronary artery disease) Code(s): I25.10 - ATHSCL HEART DISEASE OF [place] CORONARY ARTERY W/O ANG PCTRS Status: Chronic (9) Diabetes type 2, controlled Code(s): E11.9 - TYPE 2 DIABETES MELLITUS WITHOUT COMPLICATIONS Status: Chronic (10) Dyslipidemia Code(s): E78.5 - HYPERLIPIDEMIA, UNSPECIFIED Status: Chronic (11) Gout Code(s): M10.9 - GOUT, UNSPECIFIED Status: Chronic (12) Hypertension Code(s): I10 - ESSENTIAL (PRIMARY) HYPERTENSION Status: Chronic - Plan cont current plan of care, continue antibiotics, respiratory therapy * now BP improved, will resume his home meds * will monitor today closely after bronchoscopy * follow up on pathology report * medication reviewed as below * symptomatic treatment * continue empiric antibiotics. * BP and blood sugar are high due to steroid Review of Systems - Review of Systems Constitutional: negative: fever, chills, sweats, weakness, malaise, other Eyes: negative: Pain, Vision Change, Conjunctivae Inflammation, Eyelid Inflammation, Redness, Other Respiratory: Cough, Shortness of Breath. negative: Dry, Hemoptysis, SOB with Excertion, Pleuritic Pain, Sputum, Wheezing Cardiovascular: negative: chest pain, palpitations, orthopnea, paroxysmal nocturnal dyspnea, edema, light headedness, other Gastrointestinal: negative: Nausea, Vomiting, Abdominal Pain, Diarrhea, Constipation, Melena, Hematochezia, Other Genitourinary: negative: Dysuria, Frequency, Incontinence, Hematuria, Retention , Other Musculoskeletal: negative: Neck Pain, Shoulder Pain, Arm Pain, Back Pain, Hand Pain, Leg Pain, Foot Pain, Other Skin: negative: Rash, Lesions, Ravi, Bruising, Other - Medications/Allergies Allergies/Adverse Reactions: Allergies Allergy/AdvReac Type Severity Reaction Status Date / Time No Known Allergies Allergy Verified 02/14/18 22:36 Medications: Current Medications Acetaminophen (Tylenol) 650 mg PO Q4H PRN PRN Reason: Headache/Fever or Pain Stop: 02/20/18 08:00 Hydrocodone Bitart/Acetaminophen ([place] 5/325) 1 tab PO Q4H PRN PRN Reason: Moderate Pain (4-6) Albuterol/Ipratropium (Duoneb) 3 ml NEB Q3H PRN PRN Reason: Dyspnea/Wheezing/SOB Stop: 02/19/18 08:00 Albuterol/Ipratropium (Duoneb) 3 ml NEB [id number] [facility] Last Admin: 02/16/18 07:17 Dose: Not Given Allopurinol (Zyloprim) 100 mg PO DAILY [facility] Last Admin: 02/15/18 14:27 Dose: Not Given Artificial Tears (Tears Naturale) 0 drop EA EYE PRN PRN PRN Reason: Dry Eyes Ascorbic Acid (Vitamin C) 1,000 mg PO DAILY [facility] Last Admin: 02/15/18 14:27 Dose: Not Given Atorvastatin Calcium (Lipitor) 40 mg PO HS [facility] Last Admin: 02/15/18 20:42 Dose: 40 mg Calcium Carbonate (Caltrate) 600 mg PO BID [facility] Last Admin: 02/15/18 20:41 Dose: 600 mg Calcium Carbonate (Tums) 1,000 mg PO Q4H PRN PRN Reason: Heartburn or Indigestion Cholecalciferol (Vitamin D3) 1,000 units PO DAILY [facility] Last Admin: 02/15/18 14:27 Dose: Not Given Dextrose/Water (Dextrose 50%) 25 gm SLOW IVP PRN PRN PRN Reason: Hypoglycemia Digoxin (Lanoxin) 0.125 mg PO QAM [facility] Ezetimibe (Zetia) 10 mg PO HS [facility] Last Admin: 02/15/18 20:41 Dose: 10 mg Enoxaparin Sodium (Lovenox) 40 mg SC 0900 [facility] Last Admin: 02/15/18 14:27 Dose: Not Given Famotidine (Pepcid) 20 mg PO BIDPRN PRN PRN Reason: Heartburn or Indigestion Finasteride (Proscar) 5 mg PO DAILY [facility] Last Admin: 02/15/18 14:27 Dose: Not Given Fish Oil (Fish Oil) 1,000 mg PO DAILY [facility] Last Admin: 02/15/18 14:27 Dose: Not Given Glucagon (Glucagon) 1 mg IM PRN PRN PRN Reason: Hypoglycemia Guaifenesin (Mucinex) 600 mg PO Q12HR [facility] Last Admin: 02/15/18 20:41 Dose: 600 mg Guaifenesin (Robitussin Sf) 200 mg PO Q4H PRN PRN Reason: Cough Hydralazine HCl (Apresoline) 10 mg SLOW IVP Q4H PRN PRN Reason: Systolic BP > 180 Sodium Chloride (Normal Saline 0.9%) 1,000 mls @ 0 mls/hr IV .Q0M PRN PRN Reason: SBP < 90 Cefepime HCl 2 gm/ Sodium (Chloride) 100 mls @ 200 mls/hr IVPB Q12HR [facility] Last Admin: 02/15/18 20:42 Dose: 100 mls Dextrose/Water (D5w) 1,000 mls @ 0 mls/hr IV .Q0M PRN PRN Reason: Hypoglycemia Insulin Human Lispro (Humalog) 0 units SC .MODERATE SLIDING SC PRN PRN Reason: Moderate Correctional Scale Last Admin: 02/15/18 17:33 Dose: 4 units Insulin Human Lispro (Humalog) 0 units SC .BEDTIME SLIDING SC PRN PRN Reason: Bedtime Correctional Scale Lidocaine HCl (Xylocaine 4% Pf) 5 ml NEB WILLCALL [facility] Stop: 02/16/18 15:00 Loperamide HCl (Imodium) 2 mg PO PRN PRN PRN Reason: Diarrhea/Loose Stools Loratadine (Claritin) 10 mg PO DAILYPRN PRN PRN Reason: Sinus Symptoms Magnesium Hydroxide (Milk Of Magnesium) 30 ml PO DAILYPRN PRN PRN Reason: Constipation Methylprednisolone Sodium Succinate (Solu-Medrol) 40 mg IVP Q6HR [facility] Last Admin: 02/16/18 05:37 Dose: 40 mg Metoprolol Tartrate (Lopressor) 12.5 mg PO BID [facility] Last Admin: 02/15/18 20:40 Dose: 12.5 mg Mineral Oil/White Petrolatum (Eucerin Cream) 0 gm TOP BIDPRN PRN PRN Reason: Dry Skin Multivitamins (Theragran) 1 tab PO DAILY [facility] Last Admin: 02/15/18 14:28 Dose: Not Given Ondansetron HCl (Zofran) 4 mg IVP Q6H PRN PRN Reason: Nausea/Vomiting Stop: 02/20/18 08:00 Ondansetron HCl (Zofran Odt) 4 mg SL Q6H PRN PRN Reason: Nausea/Vomiting Stop: 02/19/18 08:00 Pantoprazole Sodium (Protonix) 40 mg PO DAILY [facility] Last Admin: 02/15/18 14:28 Dose: Not Given Phenol (Chloraseptic [place] 180 Ml Bot) 0 ml PO PRN PRN PRN Reason: Sore Throat Pioglitazone HCl (Actos) 15 mg PO DAILY [facility] Last Admin: 02/15/18 14:28 Dose: Not Given Saccharomyces Boulardii (Florastor) 250 mg PO DAILY [facility] Last Admin: 02/15/18 14:29 Dose: Not Given Senna (Senokot) 2 tab PO HSPRN PRN PRN Reason: Constipation Sodium Chloride ([place] Nasal [place] 0.65%) 0 ml EA NARE QIDPRN PRN PRN Reason: Nasal Congestion Temazepam (Restoril) 15 mg PO HSPRN PRN PRN Reason: Insomnia Vitamin B Complex/Vit C/Folic Acid (Nephro-Melchor Tablet) 1 tab PO DAILY [facility] Last Admin: 02/15/18 14:28 Dose: Not Given
[2018-02-16] MEDS: Ascorbic Acid 500 mg Chewable Tablet PO SCH (10:46)
[2018-02-16] MEDS: Calcium Carbonate 600 MG TAB PO SCH ×2 (10:46→21:16)
[2018-02-16] MEDS: Allopurinol 100 MG TAB PO SCH (10:46)
[2018-02-16] MEDS: Enoxaparin Sodium 40 MG/0.4 ML SYRINGE SC SCH (10:47)
[2018-02-16] MEDS: Finasteride 5 MG TAB PO SCH (10:47)
[2018-02-16] MEDS: Digoxin 0.125 MG TAB PO SCH (10:47)
[2018-02-16] MEDS: Fish Oil 1,000 MG CAP PO SCH (10:47)
[2018-02-16] MEDS: Folic Acid/Vit B Comp W-C PO SCH (10:48)
[2018-02-16] MEDS: guaiFENesin ER 600 MG TAB PO SCH ×2 (10:48→21:15)
[2018-02-16] MEDS: Metoprolol Tartrate 25 MG TAB PO SCH (10:48)
[2018-02-16] MEDS: Multivit, Therapeutic 1 TAB PO SCH (10:49)
[2018-02-16] MEDS: Saccharomyces boulardii 250 MG CAP PO SCH (10:49)
[2018-02-16] MEDS: Cefepime 2 GM in Sodium Chloride 0.9% 100 ML IVPB SCH ×2 (10:57→21:16)
[2018-02-16] MEDS: HumaLOG 300 UNITS/3 ML VIAL SC PRN ×2 (11:42→17:24)
--- NOTE | 2018-02-16 11:58 | PQF ---
CLINICAL DOCUMENTATION IMPROVEMENT CLARIFICATION FORM: ICD-10 Updated PLEASE DO AN ADDENDUM TO THE PROGRESS NOTE WITH ANY DOCUMENTATION UPDATES OR ADDITIONS AND CARRY THROUGH TO DC SUMMARY. THANK YOU. DATE: 02/16/18 ATTN: Please exercise your independent, professional judgment in responding to the clarification form. Clinical indicators are provided on the bottom of this form for your review Please check appropriate box(s) to clarify if the following diagnosis has been ruled in or ruled out: SEPSIS [ x] Ruled in diagnosis [ x ] Continue to treat [ ] Resolved [ ] Ruled out diagnosis [ ] Cannot rule out diagnosis [ ] Other diagnosis [ ] Unable to determine In addition, please specify: Present on Admission (POA): [ x ] Yes [ ] No [ ] Unable to determine For continuity of documentation, please document condition throughout progress notes and discharge summary. Thank You. CLINICAL INDICATORS - SIGNS / SYMPTOMS / LABS H&P: "ATRIAL FIBRILLATION WITH RAPID VENTRICULAR RESPONSE. THIS IS LIKELY TRIGGERED BY SEPSIS." 02/14 WBC: 14.0 ER NOTE: BP 90/57 PULSE 149 RR28 RISKS: PNEUMONIA TREATMENT: IV AZITHROMYCIN (ER) IV ROCEPHIN (ER) IV MAXIPIME (02/15-PRESENT) IV LEVAQUIN (DOSE GIVEN 02/15) IV FLUIDS (GIVEN 02/15) [employer] Lead [employer] Winform Viewer (This form is maintained as a part of the permanent medical record) 2014 [employer]. All Rights Reserved KVNG [email or web address] Office: [phone] [facility]
[2018-02-16] MEDS: Sodium Chloride 0.9% 1,000 ML IV SCH (12:00)
[2018-02-16] MEDS: Pioglitazone HCl 15 MG TAB PO SCH (13:00)
--- NOTE | 2018-02-16 15:32 | PDOC.CTH ---
<Halina Manriquez - Last Filed: 02/16/18 15:45> Cardiology Progress Note - Subjective EP progress note: Patient seen and evaluated. No new cardiac concerns or complaints. had bronch with biopsy this AM. Converted to NSR over HS + occasional cough and slight SOB post bronch, resolving ROS: 8 point ROS negative except as listed above - Objective Vital Signs Temp Pulse Resp BP Pulse Ox 02/16/18 11:37 95 02/16/18 11:36 84 16 02/16/18 10:59 97.6 F 84 19 126/59 L 2 L 02/16/18 10:47 90 02/16/18 09:13 105 H 24 H 166/85 H 95 02/16/18 03:38 97.7 F 75 20 113/56 L 93 L Weight 195 lb 9.6 oz 02/15/18 02/16/18 02/17/18 06:59 06:59 06:59 Intake Total 1240 1481 Output Total 700 1450 Balance 540 31 - Physical Examination General/Neuro: alert & oriented x3, NAD Neck: carotid US brisk, no JVD present Lungs: CTA, unlabored respirations Heart: PMI normal, RRR Abdomen: NT/ND, soft - Telemetry Telemetry Rhythm: SR - Labs Result Diagrams: 02/15/18 05:17 02/15/18 05:17 Troponin/CKMB CK-MB (CK-2) 0.7 ng/mL (0-6.6) 02/14/18 18:10 Troponin I 0.010 ng/mL (< 0.028) 02/14/18 18:10 - Assessment/Plan 1. Typical atrial flutter, newly diagnosed: converted to SR over HS. Arrangements for outpatient ablation will be made. Continue with rate control on low dose Toprol. 2. Anticoagulation. Currently on DAPT with Plavix and ASA. Was on lovenox 40mg which was held today for pulm procedure. Spoke with licha Glass to started NOAC with Xarelto or Eliquis in 48 hours as he had significant bleeding during his biopsy on DAPT. <Chayo,Evelio - Last Filed: 02/18/18 17:54> Cardiology Progress Note - Objective Vital Signs Temp Pulse Resp BP Pulse Ox 02/18/18 10:51 97.8 F 64 20 118/61 94 L 02/18/18 10:00 75 16 94 L 02/18/18 08:54 73 02/18/18 08:45 98.1 F 83 19 134/60 94 L 02/18/18 06:30 66 18 93 L 02/18/18 06:26 66 16 91 L Weight 205 lb 14.588 oz 02/17/18 02/18/18 02/19/18 06:59 06:59 06:59 Intake Total 962 1760 Output Total 950 1425 Balance 12 335 - Labs Result Diagrams: 02/17/18 07:21 02/17/18 07:21 Troponin/CKMB CK-MB (CK-2) 0.7 ng/mL (0-6.6) 02/14/18 18:10 Troponin I 0.010 ng/mL (< 0.028) 02/14/18 18:10 Attending Addendum - Attending Addendum Date/Time: 02/18/18 [id number] I personally evaluated the patient and discussed the management with Ms Manriquez. I agree with the History, Examination, Assessment and Plan documented above with any addition or exceptions noted below. Hence the significnat bleed during biopsy and subsequent restored sinus rhythm, will hold NOAC and continue DAPT for now.
[2018-02-16] MEDS: metFORMIN 500 MG TAB PO SCH (17:22)
[2018-02-16] MEDS ORDERED: Non-Formulary Item 1 EACH (Metformin Hcl [Metformin Hcl] 1,000 MG) PO SCH (21:00)
[2018-02-16] MEDS: Ezetimibe 10 MG TAB PO SCH (21:15)
[2018-02-16] MEDS: Atorvastatin Calcium 40 MG TAB PO SCH (21:15)
[2018-02-17 07:35] LABS: #Lymphocytes 0.6 thou/uL (1.20-3.40); #Monocytes 0.4 thou/uL (0.11-0.59); #Neutrophils 16.6 thou/uL (1.40-6.50); %Eosinophils 0.1 % (0.0-10.0); %Lymphocytes 3.3 % (21.0-51.0); %Monocytes 2.4 % (0.0-10.0); %Neutrophils 94.1 % (42.0-75.0); Hemoglobin 11.6 g/dL (14.0-18.0); Mean Corpuscular HGB CONC 32.7 g/dL (32.0-36.0); Mean Corpuscular Hemoglobin 30.1 pg (27.0-31.0); Mean Corpuscular Volume 91.9 fL (78.0-98.0); Mean Platelet Volume 7.4 fL (7.4-10.4); Platelet Count 239 thou/uL (130-400); RBC Distribution Width 12.3 % (11.5-14.5); Red Blood Cell (RBC) Count 3.85 mill/uL (4.70-6.10); White Blood Cell (WBC) Count 17.6 thou/uL (4.8-10.8)
[2018-02-17 07:48] LABS: Anion Gap 11 mmol/L (10-20); BUN (Urea Nitrogen) 20 mg/dL (8.4-25.7); Calc. Creatinine Clearance 87 mL/min (70-130); Calcium 8.9 mg/dL (7.8-10.44); Carbon Dioxide 23 mmol/L (23-31); Chloride 107 mmol/L (98-107); Estimated GFR-MDRD 77; Glucose 253 mg/dL (83-110); Potassium 4.1 mmol/L (3.5-5.1); Sodium 137 mmol/L (136-145)
[2018-02-17] MEDS ORDERED: Triamterene/Hydrochlorothiazide 37.5 mg/25 mg Tablet PO SCH (09:00)
[2018-02-17] MEDS: Calcium Carbonate 600 MG TAB PO SCH ×2 (09:35→21:41)
[2018-02-17] MEDS: Enoxaparin Sodium 40 MG/0.4 ML SYRINGE SC SCH (09:35)
[2018-02-17] MEDS: Folic Acid/Vit B Comp W-C PO SCH (09:35)
[2018-02-17] MEDS: Pioglitazone HCl 15 MG TAB PO SCH (09:36)
[2018-02-17] MEDS: Ascorbic Acid 500 mg Chewable Tablet PO SCH (09:36)
[2018-02-17] MEDS: Saccharomyces boulardii 250 MG CAP PO SCH (09:36)
[2018-02-17] MEDS: Fish Oil 1,000 MG CAP PO SCH (09:36)
[2018-02-17] MEDS: Multivit, Therapeutic 1 TAB PO SCH (09:36)
[2018-02-17] MEDS: Triamterene/Hydrochlorothiazide 37.5 mg/25 mg Tablet PO SCH (09:36)
[2018-02-17] MEDS: metFORMIN 500 MG TAB PO SCH ×2 (09:36→17:39)
[2018-02-17] MEDS: Digoxin 0.125 MG TAB PO SCH (09:37)
[2018-02-17] MEDS: guaiFENesin ER 600 MG TAB PO SCH ×2 (09:37→21:42)
[2018-02-17] MEDS: Allopurinol 100 MG TAB PO SCH (09:37)
[2018-02-17] MEDS: Finasteride 5 MG TAB PO SCH (09:37)
[2018-02-17] MEDS: Cefepime 2 GM in Sodium Chloride 0.9% 100 ML IVPB SCH (09:40)
--- NOTE | 2018-02-17 11:25 | PRG ---
DATE OF SERVICE: 02/17/2018 SUBJECTIVE: Mr. Tobin seems to be doing great. Still has some cough, minimal hemoptysis, doing well overall. OBJECTIVE: VITAL SIGNS: Blood pressure is 129/60, heart rate 73, respiration is 18, temperature is 97.7 degrees Fahrenheit. GENERAL: He is alert and oriented man in no apparent distress. NECK: Supple. Jugular veins not distended. CHEST: Coarse, a few crackles bilaterally. CARDIOVASCULAR: Heart sounds are regular to rate and rhythm. No murmur or gallop. ABDOMEN: Benign. Bowel sounds positive. EXTREMITIES: Lower extremities without edema, clubbing or cyanosis. DATABASE: The telemetry strips reviewed revealing sinus rhythm. No recurrence of atrial flutter not ed. LABORATORY DATA: White blood cell count 17.6, hemoglobin 9.6, platelet count is 239. Sodium 137, po tassium 0.1, BUN is 20, creatinine 0.95. ASSESSMENT AND PLAN: Mr. Tobin is a pleasant 77-year-old man with a history of coronary artery d isease, bypass surgery, myocardial infarction in the past, but still preserved LV function. He was f ound to have a mediastinal mass and underwent a bronchoscopy and biopsy, results are still pending. He also noted to be in atrial flutter with rapid rates, which is a new finding. He though was sponta neously cardioverted. Consider anticoagulation once okay from the pulmonary standpoint. He might benefit from an ablation of his atrial flutter circuit in the cavotricuspid isthmus. Hence typical morphology of atrial flutt er is appreciated.
--- NOTE | 2018-02-17 11:30 | PRG ---
DATE OF SERVICE: 02/17/2018 SUBJECTIVE: This morning, he is better, still coughing up some more blood. PHYSICAL EXAMINATION: VITAL SIGNS: Apparently sats 94% on 3 liters, temperature 97, blood pressure 120/60, respiration rat e 18. CHEST: Rhonchi, right greater than left. CARDIAC: Normal S1, S2, no gallops. ABDOMEN: Soft, no mass. LABORATORY DATA: Blood sugar 253. White count 17,000, hemoglobin and hematocrit 11 and 35. IMPRESSION: 1. Extensive mucosal changes involving the bronchus intermedius and lower lobe bronchus with marked narrowing consistent with bronchogenic carcinoma. No evidence of pneumonia. 2. Chronic obstructive pulmonary disease. 3. Atrial fibrillation. 4. Diabetes. PLAN: Switch over to oral medication. Await results of the path. We will follow.
--- NOTE | 2018-02-17 11:36 | PDOC.PN ---
- Subjective Encounter Start Date: 02/17/18 Encounter Start Time: 08:00 Patient seen and examined. No new complaints. No overnight events - Objective Resuscitation Status: Resuscitation Status FULL:Full Resuscitation MAR Reviewed: Yes Vital Signs & Weight: Vital Signs (12 hours) Temp Pulse Resp BP Pulse Ox 02/17/18 09:46 92 16 95 02/17/18 09:37 73 02/17/18 07:33 97.7 F 73 18 129/60 94 L 02/17/18 06:12 89 16 95 02/17/18 03:32 98.1 F 78 20 109/55 L 95 02/17/18 00:00 20 95 Weight Weight 207 lb 15.971 oz I&O: 02/16/18 02/17/18 02/18/18 06:59 06:59 06:59 Intake Total 1481 962 Output Total 1450 950 Balance 31 12 Result Diagrams: 02/17/18 07:21 02/17/18 07:21 Additional Labs: Accuchecks 02/17/18 02/16/18 02/16/18 10:44 20:32 17:03 POC Glucose 340 H 290 H 226 H 02/16/18 10:57 POC Glucose 264 H EKG Reviewed by me: Yes (nsr) Phys Exam - Physical Examination Constitutional: NAD HEENT: PERRLA, moist MMs, sclera anicteric Neck: no JVD, supple Respiratory: no wheezing, no rales, no rhonchi Cardiovascular: RRR, no significant murmur, no rub Gastrointestinal: soft, non-tender, no distention, positive bowel sounds Musculoskeletal: no edema, pulses present Neurological: non-focal, normal sensation, moves all 4 limbs Psychiatric: normal affect, A&O x 3 Skin: no rash, normal turgor Dx/Plan (1) Atrial fibrillation with RVR Code(s): I48.91 - UNSPECIFIED ATRIAL FIBRILLATION Status: Resolved Comment: today in NSR (2) Community acquired bacterial pneumonia Code(s): J15.9 - UNSPECIFIED BACTERIAL PNEUMONIA Status: Ruled-out Comment: (3) Hilar mass Code(s): R91.8 - OTHER NONSPECIFIC ABNORMAL FINDING OF LUNG FIELD Status: Acute Comment: s/p bronchoscopy and biopsy pending result (4) Hypotension Status: Resolved (5) Mediastinal lymphadenopathy Code(s): R59.0 - LOCALIZED ENLARGED LYMPH NODES Status: Acute (6) Pulmonary nodule Code(s): R91.1 - SOLITARY PULMONARY NODULE Status: Acute (7) BPH (benign prostatic hyperplasia) Code(s): N40.0 - BENIGN PROSTATIC HYPERPLASIA WITHOUT LOWER URINRY TRACT SYMP Status: Chronic (8) CAD (coronary artery disease) Code(s): I25.10 - ATHSCL HEART DISEASE OF [place] CORONARY ARTERY W/O ANG PCTRS Status: Chronic (9) Diabetes type 2, controlled Code(s): E11.9 - TYPE 2 DIABETES MELLITUS WITHOUT COMPLICATIONS Status: Chronic (10) Dyslipidemia Code(s): E78.5 - HYPERLIPIDEMIA, UNSPECIFIED Status: Chronic (11) Gout Code(s): M10.9 - GOUT, UNSPECIFIED Status: Chronic (12) Hypertension Code(s): I10 - ESSENTIAL (PRIMARY) HYPERTENSION Status: Chronic - Plan cont current plan of care, plan discussed w/ family, continue antibiotics * pneumonia ruled out, mostly related with bronchogenic carcinoma, await pathology * he is converted to nsr * will consider chronic oral anticoagulant may be tomorrow * medication reviewed as below * symptomatic treatment * discussed with * today will try to wean off oxygen. * continue doxy empirically * wbc high is due to steroid Review of Systems - Review of Systems Constitutional: negative: fever, chills, sweats, weakness, malaise, other Eyes: negative: Pain, Vision Change, Conjunctivae Inflammation, Eyelid Inflammation, Redness, Other ENT: negative: Ear Pain, Ear Discharge, Nose Pain, Nose Discharge, Nose Congestion, Mouth Pain, Mouth Swelling, Throat Pain, Throat Swelling, Other Respiratory: Cough, Shortness of Breath. negative: Dry, Hemoptysis, SOB with Excertion, Pleuritic Pain, Sputum, Wheezing Cardiovascular: negative: chest pain, palpitations, orthopnea, paroxysmal nocturnal dyspnea, edema, light headedness, other Gastrointestinal: negative: Nausea, Vomiting, Abdominal Pain, Diarrhea, Constipation, Melena, Hematochezia, Other Genitourinary: negative: Dysuria, Frequency, Incontinence, Hematuria, Retention , Other Musculoskeletal: negative: Neck Pain, Shoulder Pain, Arm Pain, Back Pain, Hand Pain, Leg Pain, Foot Pain, Other Skin: negative: Rash, Lesions, Ravi, Bruising, Other - Medications/Allergies Allergies/Adverse Reactions: Allergies Allergy/AdvReac Type Severity Reaction Status Date / Time No Known Allergies Allergy Verified 02/14/18 22:36 Medications: Current Medications Acetaminophen (Tylenol) 650 mg PO Q4H PRN PRN Reason: Headache/Fever or Pain Stop: 02/20/18 08:00 Hydrocodone Bitart/Acetaminophen ([place] 5/325) 1 tab PO Q4H PRN PRN Reason: Moderate Pain (4-6) Albuterol/Ipratropium (Duoneb) 3 ml NEB Q3H PRN PRN Reason: Dyspnea/Wheezing/SOB Stop: 02/19/18 08:00 Albuterol/Ipratropium (Duoneb) 3 ml NEB [id number] [facility] Last Admin: 02/17/18 09:46 Dose: 3 ml Allopurinol (Zyloprim) 100 mg PO DAILY [facility] Last Admin: 02/17/18 09:37 Dose: 100 mg Artificial Tears (Tears Naturale) 0 drop EA EYE PRN PRN PRN Reason: Dry Eyes Ascorbic Acid (Vitamin C) 1,000 mg PO DAILY [facility] Last Admin: 02/17/18 09:36 Dose: 1,000 mg Atorvastatin Calcium (Lipitor) 40 mg PO HS [facility] Last Admin: 02/16/18 21:15 Dose: 40 mg Calcium Carbonate (Caltrate) 600 mg PO BID [facility] Last Admin: 02/17/18 09:35 Dose: 600 mg Calcium Carbonate (Tums) 1,000 mg PO Q4H PRN PRN Reason: Heartburn or Indigestion Cholecalciferol (Vitamin D3) 1,000 units PO DAILY [facility] Last Admin: 02/17/18 09:36 Dose: 1,000 units Dextrose/Water (Dextrose 50%) 25 gm SLOW IVP PRN PRN PRN Reason: Hypoglycemia Digoxin (Lanoxin) 0.125 mg PO QAM [facility] Last Admin: 02/17/18 09:37 Dose: 0.125 mg Doxycycline Hyclate (Vibramycin) 100 mg PO BID [facility] Stop: 02/22/18 21:01 Ezetimibe (Zetia) 10 mg PO HS [facility] Last Admin: 02/16/18 21:15 Dose: 10 mg Enoxaparin Sodium (Lovenox) 40 mg SC 0900 [facility] Last Admin: 02/17/18 09:35 Dose: 40 mg Famotidine (Pepcid) 20 mg PO BIDPRN PRN PRN Reason: Heartburn or Indigestion Finasteride (Proscar) 5 mg PO DAILY [facility] Last Admin: 02/17/18 09:37 Dose: 5 mg Fish Oil (Fish Oil) 1,000 mg PO DAILY [facility] Last Admin: 02/17/18 09:36 Dose: 1,000 mg Glucagon (Glucagon) 1 mg IM PRN PRN PRN Reason: Hypoglycemia Guaifenesin (Mucinex) 600 mg PO Q12HR [facility] Last Admin: 02/17/18 09:37 Dose: 600 mg Guaifenesin (Robitussin Sf) 200 mg PO Q4H PRN PRN Reason: Cough Hydralazine HCl (Apresoline) 10 mg SLOW IVP Q4H PRN PRN Reason: Systolic BP > 180 Sodium Chloride (Normal Saline 0.9%) 1,000 mls @ 0 mls/hr IV .Q0M PRN PRN Reason: SBP < 90 Dextrose/Water (D5w) 1,000 mls @ 0 mls/hr IV .Q0M PRN PRN Reason: Hypoglycemia Insulin Human Lispro (Humalog) 0 units SC .MODERATE SLIDING SC PRN PRN Reason: Moderate Correctional Scale Last Admin: 02/16/18 17:24 Dose: 4 units Insulin Human Lispro (Humalog) 0 units SC .BEDTIME SLIDING SC PRN PRN Reason: Bedtime Correctional Scale Loperamide HCl (Imodium) 2 mg PO PRN PRN PRN Reason: Diarrhea/Loose Stools Loratadine (Claritin) 10 mg PO DAILYPRN PRN PRN Reason: Sinus Symptoms Magnesium Hydroxide (Milk Of Magnesium) 30 ml PO DAILYPRN PRN PRN Reason: Constipation Metformin HCl (Glucophage) 1,000 mg PO BID-WM [facility] Last Admin: 02/17/18 09:36 Dose: 1,000 mg Metoprolol Succinate (Toprol Xl) 25 mg PO DAILY [facility] Last Admin: 02/17/18 09:35 Dose: 25 mg Mineral Oil/White Petrolatum (Eucerin Cream) 0 gm TOP BIDPRN PRN PRN Reason: Dry Skin Mometasone Furoate/Formoterol Fumar (Dulera 200 Mcg/5 Mcg Inhaler) 2 puff INH BID-RT [facility] Multivitamins (Theragran) 1 tab PO DAILY [facility] Last Admin: 10/17/18 09:36 Dose: 1 tab Ondansetron HCl (Zofran) 4 mg IVP Q6H PRN PRN Reason: Nausea/Vomiting Stop: 02/20/18 08:00 Ondansetron HCl (Zofran Odt) 4 mg SL Q6H PRN PRN Reason: Nausea/Vomiting Stop: 02/19/18 08:00 Pantoprazole Sodium (Protonix) 40 mg PO DAILY [facility] Last Admin: 02/17/18 09:36 Dose: 40 mg Phenol (Chloraseptic [place] 180 Ml Bot) 0 ml PO PRN PRN PRN Reason: Sore Throat Pioglitazone HCl (Actos) 15 mg PO DAILY [facility] Last Admin: 02/17/18 09:36 Dose: 15 mg Prednisone (Prednisone) 20 mg PO QA-[facility] Saccharomyces Boulardii (Florastor) 250 mg PO DAILY [facility] Last Admin: 02/17/18 09:36 Dose: 250 mg Senna (Senokot) 2 tab PO HSPRN PRN PRN Reason: Constipation Sodium Chloride ([place] Nasal [place] 0.65%) 0 ml EA NARE QIDPRN PRN PRN Reason: Nasal Congestion Sodium Chloride (Flush - Normal Saline) 10 ml IVF Q12HR [facility] Last Admin: 02/17/18 09:37 Dose: 10 ml Sodium Chloride (Flush - Normal Saline) 10 ml IVF PRN PRN PRN Reason: Saline Flush Last Admin: 02/17/18 05:46 Dose: 10 ml Temazepam (Restoril) 15 mg PO HSPRN PRN PRN Reason: Insomnia Triamterene/HCTZ (Maxzide-25) 1 tab PO DAILY [facility] Last Admin: 02/17/18 09:36 Dose: 1 tab Vitamin B Complex/Vit C/Folic Acid (Nephro-Melchor Tablet) 1 tab PO DAILY [facility] Last Admin: 02/17/18 09:35 Dose: 1 tab
[2018-02-17] MEDS: HumaLOG 300 UNITS/3 ML VIAL SC PRN (11:43)
--- NOTE | 2018-02-17 13:22 | PDOC.CTH ---
<Tonie Mesa - Last Filed: 02/17/18 13:23> Cardiology Progress Note - Subjective The pt seen and examined. No overnight events. No cardiac complaints. His O2 Sat was down to 87-89% with RA when he walked today. - Objective Vital Signs Temp Pulse Resp BP Pulse Ox 02/17/18 12:53 89 L 02/17/18 11:44 97.8 F 72 18 124/62 96 02/17/18 09:46 92 16 95 02/17/18 09:37 73 02/17/18 07:33 97.7 F 73 18 129/60 94 L 02/17/18 06:12 89 16 95 02/17/18 03:32 98.1 F 78 20 109/55 L 95 Weight 207 lb 15.971 oz 02/16/18 02/17/18 02/18/18 06:59 06:59 06:59 Intake Total 1481 962 Output Total 1450 950 Balance 31 12 - Physical Examination General/Neuro: alert & oriented x3 Neck: no JVD present Lungs: other: (diminished at bases) Heart: RRR Abdomen: soft Extremities: other: (No edema) - Telemetry Telemetry Rhythm: SR - Labs Result Diagrams: 02/17/18 07:21 02/17/18 07:21 Troponin/CKMB CK-MB (CK-2) 0.7 ng/mL (0-6.6) 02/14/18 18:10 Troponin I 0.010 ng/mL (< 0.028) 02/14/18 18:10 - Assessment/Plan 1. Typical Afitter with RVR - Converted to SR on 02/16/18. On Toprol and digoxin. On Lovenox, which may change to OAC when Pulmonary service is ok. Cont. to monitor on tele. 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 PNA - managed by career technology teacher/PCP 4. CAD with Hx of CABG in 2004 - stable; cont. 5. HTN - stable with Metoplol. 6. Hyperlipidemia - on Statin 7. DM type 2 - managed by PCP MAR reviewed * Echo on 02/15/18 showed EF 55-60%, mildly dilated LA, mild ERA, trace MR, mild TR. Review of Systems - Review of Systems Constitutional: reports: no symptoms reported EENTM: reports: no symptoms reported Respiratory: reports: see HPI Cardiac (ROS): reports: no symptoms reported ABD/GI: reports: no symptoms reported : reports: no symptoms reported Musculoskeletal: reports: no symptoms reported <Joanne Hinkle - Last Filed: 02/17/18 18:13> Cardiology Progress Note - Objective Vital Signs Temp Pulse Resp BP Pulse Ox 02/17/18 15:12 97.6 F 85 18 135/63 93 L 02/17/18 13:35 99 16 96 02/17/18 12:53 89 L 02/17/18 11:44 97.8 F 72 18 124/62 96 02/17/18 09:46 92 16 95 02/17/18 09:37 73 02/17/18 07:33 97.7 F 73 18 129/60 94 L 02/17/18 06:12 89 16 95 Weight 207 lb 15.971 oz 02/16/18 02/17/18 02/18/18 06:59 06:59 06:59 Intake Total 1481 962 Output Total 1450 950 Balance 31 12 - Labs Result Diagrams: 02/17/18 07:21 02/17/18 07:21 Troponin/CKMB CK-MB (CK-2) 0.7 ng/mL (0-6.6) 02/14/18 18:10 Troponin I 0.010 ng/mL (< 0.028) 02/14/18 18:10 - Assessment/Plan Pt. seen and eval. by me. I agree with the A/P by the KARDEX CLERK. Await full written report from biopsy. He is maintaining NSR. Based on the prognosis of the lung isssues, an ablation of the atrial flutter would be advised as an outpt. This will be followed by the welder repair. Cardiac status is stable at this time.
[2018-02-17] MEDS: Mometasone/Formoterol 120 PUFF INHALER INH SCH (18:15)
[2018-02-17] MEDS: Doxycycline 100 MG CAP PO SCH (21:42)
[2018-02-17] MEDS: Ezetimibe 10 MG TAB PO SCH (21:43)
[2018-02-17] MEDS: Atorvastatin Calcium 40 MG TAB PO SCH (21:43)
[2018-02-18] MEDS: Mometasone/Formoterol 120 PUFF INHALER INH SCH (06:26)
[2018-02-18] MEDS ORDERED: predniSONE 20 MG TAB PO SCH (08:00)
[2018-02-18] MEDS: Allopurinol 100 MG TAB PO SCH (08:52)
[2018-02-18] MEDS: metFORMIN 500 MG TAB PO SCH (08:52)
[2018-02-18] MEDS: Ascorbic Acid 500 mg Chewable Tablet PO SCH (08:53)
[2018-02-18] MEDS: Calcium Carbonate 600 MG TAB PO SCH (08:53)
[2018-02-18] MEDS: Digoxin 0.125 MG TAB PO SCH (08:54)
[2018-02-18] MEDS: Doxycycline 100 MG CAP PO SCH (08:55)
[2018-02-18] MEDS: Enoxaparin Sodium 40 MG/0.4 ML SYRINGE SC SCH (08:56)
[2018-02-18] MEDS: Folic Acid/Vit B Comp W-C PO SCH (08:57)
[2018-02-18] MEDS: Fish Oil 1,000 MG CAP PO SCH (08:57)
[2018-02-18] MEDS: Finasteride 5 MG TAB PO SCH (08:57)
[2018-02-18] MEDS: guaiFENesin ER 600 MG TAB PO SCH (08:58)
[2018-02-18] MEDS: Triamterene/Hydrochlorothiazide 37.5 mg/25 mg Tablet PO SCH (08:58)
[2018-02-18] MEDS: Pioglitazone HCl 15 MG TAB PO SCH (08:58)
[2018-02-18] MEDS: Multivit, Therapeutic 1 TAB PO SCH (08:58)
[2018-02-18] MEDS: HumaLOG 300 UNITS/3 ML VIAL SC PRN (09:02)
--- NOTE | 2018-02-18 09:10 | PRG ---
DATE OF SERVICE: 02/18/2018 SUBJECTIVE: The patient is a 77-year-old gentleman. This morning, he is better, still got some mini mal hemoptysis. He is eager to go home. Awaiting input from Oncology. OBJECTIVE: VITAL SIGNS: Sats are 93% on 2 liters, pulse 66, temperature 97, respiration 18, blood pressure 122/ 60. CHEST: Reveals bilateral rhonchi and crackles. CARDIAC: Normal S1, S2. No gallops. ABDOMEN: Soft, no masses. IMPRESSION: Squamous cell carcinoma, nonresectable, extensive. PLAN: Await input from Oncology. Home thereafter.
--- NOTE | 2018-02-18 09:46 | PRG ---
DATE OF SERVICE: 02/18/2018 SUBJECTIVE: Mr. Tobin seems to be doing better today. No palpitations, no loss of consciousness . Unfortunately, his lung biopsy specimen is suggestive of lung cancer. OBJECTIVE DATA: VITAL SIGNS: Blood pressure is 134/60, heart rate 83, respirations 19, temperature 98.1 degrees Fahr enheit. GENERAL: He is alert and oriented man in no apparent distress. NECK: Supple. Jugular veins not distended. CHEST: Coarse without crackles. CARDIOVASCULAR: Heart sounds are regular to rate and rhythm. CHEST: Coarse with few crackles. The heart sounds are regular to rate and rhythm, no murmur or gall op. ABDOMEN: Benign. Bowel sounds positive. EXTREMITIES: Lower extremities are without edema, clubbing or cyanosis. DATABASE: The telemetry strips reveals sinus rhythm. No recurrent atrial fibrillation. LABORATORY DATA: No new today. ASSESSMENT AND PLAN: Mr. Tobin is a pleasant 77-year-old man with prior history of coronary kathy ry bypass surgery, currently on aspirin, Plavix for that. He presented with a chronic cough, any he was found to have a mediastinal mass which appears to be cancer according to the legal specialist , Dr. Maciel, I discussed today. He was also noted to be in atrial flutter, which is a new finding. H e though spontaneously converted back to sinus rhythm. He is on Lovenox, but he is also on aspirin a nd Plavix and had significant bleeding issues during the bronchial biopsy. At this point, we will ho ld off on full anticoagulation if recurrent atrial fibrillation occurs though, this should be conside red in the future. I discussed the future plans which likely would include outpatient cavotricuspid isthmus ablation aft er recovering from the biopsy. I am expecting him to have potential future recurrences of atrial flu tter which could impede his oncologic care. I will see him as an outpatient in the next couple of weeks.
--- NOTE | 2018-02-18 10:29 | DIS ---
DATE OF ADMISSION: 02/14/2018 DATE OF DISCHARGE: 02/18/2018 PRIMARY CARE PHYSICIAN: [facility] call admission. DISCHARGE DISPOSITION: Home. PRIMARY DISCHARGE DIAGNOSES: 1. Acute respiratory failure with hypoxia, resolved. 2. Hilar mass, mediastinal lymphadenopathy, pulmonary nodule, all turned out to be squamous cell car cinoma of lung. 3. Atrial flutter with rapid ventricular response converted to sinus rhythm. 4. Hypotension, resolved. SECONDARY DISCHARGE DIAGNOSES: Hypertension, gout, dyslipidemia, diabetes type 2, coronary artery di sease, benign enlargement of prostate. PRIMARY PROCEDURE AND OPERATION: Bronchoscopy was performed by Dr. Maciel. RADIOLOGICAL INVESTIGATION: Chest x-ray was done during this admission, which showed improvement in consolidation in right lung base and right upper lobe nodule. The patient had a CT chest as an outpa tient basis, which showed right hilar mass and lymphadenopathy. Echocardiography showed normal EF. SIGNIFICANT LABORATORY DATA: WBC 17.6, hemoglobin 11.6, platelet 239. Sodium 137, potassium 4.1, BU N 20, creatinine 0.95, calcium 8.9, AST 64, ALT 12, alkaline phosphatase 78, albumin 4.2. Cardiac en zymes negative. BNP 185. Urinalysis normal. Culture from bronchial washing completely negative so far. Blood culture negative. DISCHARGE MEDICATIONS: Allopurinol 100 mg p.o. daily, vitamin C 1000 mg p.o. daily, aspirin 81 mg p. o. daily, calcium carbonate 600 mg p.o. b.i.d., vitamin D3 1000 unit p.o. daily, Plavix 75 mg p.o. da shyam, Vytorin 1 tablet p.o. at bedtime, Proscar 5 mg p.o. at bedtime, fish oil 1 capsule daily, Tradje nta 5 mg p.o. daily, metformin 1000 mg p.o. b.i.d., Toprol-XL 25 mg p.o. daily, multivitamin 1 tablet p.o. daily, nitroglycerin p.r.n. basis, omega 3 fish oil daily, Protonix 40 mg p.o. daily, Actos 15 mg p.o. daily, Saw [place] 500 mg p.o. daily, triamterene with hydrochlorothiazide 1 tablet daily, v itamin B complex 1 tablet daily, digoxin 0.125 mg p.o. daily, doxycycline 100 mg p.o. b.i.d. for 5 da ys, Dulera 2 puffs inhalation b.i.d., prednisone 20 mg p.o. daily for 5 days, Florastor 250 mg p.o. d aily for 5 days. CONTRAINDICATIONS: None. CODE STATUS: FULL CODE. INPATIENT CONSULTANTS: Dr. Maciel was consulted who did bronchoscopy. Dr. Domingo was consulted for atri al flutter with rapid ventricular response. Cardiology was consulted for atrial flutter with rapid v entricular response. Oncology, Dr. 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 TEST RESULTS PENDING ON DISCHARGE: Pathology report from bronchial biopsy. DISCHARGE PLAN: Post hospital, the patient will follow up with primary care physician, Dr. Jordy Maciel , Dr. Alcantara and Dr. Domingo as instructed. HOSPITAL COURSE: A 77-year-old male who was treated by primary care physician for pneumonia. The jaylen campbell was not feeling any improvement. He had a CT chest as an outpatient basis, which showed hilar mass and mediastinal lymphadenopathy as well as pulmonary nodule. His chest x-ray was done during admission, which showed improvement in pneumonia, but hilar mass and pulmonary nodule remained sta ble. The patient was having cough and that is why we consulted granulator machine operator. Initially, the patien katrin was admitted for suspected non-improving pneumonia, but pneumonia was completely ruled out. The jaylen campbell had bronchoscopy and it was very difficult bronchoscopy and with the bronchoscopy, he had bleed ing. The patient was on aspirin and Plavix even before and the patient had acute hypoxic respiratory failure during admission after procedure which was resolved by the time of discharge. Pathology report turned out to be prelim report squamous cell carcinoma, which is locally advanced an d that is why before discharge, we are consulting Oncology for their opinion. On admission, the patient also had hypotension and atrial flutter with rapid ventricular response and Cardiology was consulted. His rate was controlled with digoxin and subsequently the patient spontan eously converted to sinus rhythm. Bleacher Operator recommended outpatient ablation procedure to p revent recurrence. There was concern of restarting anticoagulation in this patient because of bleeding and that is why Karie Domingo recommended to continue aspirin and Plavix and if he does well, then he will decide about dejuan g-term anticoagulation after discharge. The patient is seen and examined at bedside today. I spoke with the family member as well as the pat ient about plan of care. He expressed his wish to go home. REVIEW OF SYSTEMS: Reviewed with him and negative. PHYSICAL EXAMINATION: VITAL SIGNS: He is on room air. Currently, temperature 98.1, pulse 83, respiratory rate 16, saturat ion 94% on room air, blood pressure 134/60. Weight 205 pounds. GENERAL: The patient is currently alert, awake, no obvious acute distress. HEAD: Normocephalic, atraumatic. EYES: Pupils round, reactive to light. Extraocular muscle intact. ENT: Oropharynx within normal limits. Moist mucous membranes. No oral lesion, no pharyngeal erythe ma, no exudate. NECK: Supple, no JVD, no thyromegaly, no carotid bruit. LUNGS: Clear to auscultation without any rhonchi or rales. CARDIAC: S1, S2 regular. No murmur, no gallop, no rub. ABDOMEN: Soft and benign without any tenderness. EXTREMITIES: No edema. NEUROLOGIC: Nonfocal examination. During this admission, patient was treated with cefepime and Levaquin. Subsequently, antibiotic rodrigez ged to p.o. doxycycline and he was also given IV Solu-Medrol and subsequently changed to p.o. prednis one and Dulera inhaler was given for shortness of breath. At this point, all consultants cleared him for discharge.
[2018-02-18] MEDS: Saccharomyces boulardii 250 MG CAP PO SCH (10:50)
[2018-02-18 10:53] VITALS: BP 118/61; TEMP 97.8
--- NOTE | 2018-02-18 11:13 | CON ---
DATE OF CONSULTATION: 02/18/2018 REASON FOR CONSULTATION: Squamous cell carcinoma of the lung. HISTORY OF PRESENT ILLNESS: A 77-year-old male with history of tobacco abuse, presenting w ith gradually worsening shortness of breath. The patient states 3 or 4 weeks ago, he was diagnosed w ith pneumonia by his primary care physician and received a course of antibiotics. He went back to [facility] his physician and had a repeat chest x-ray that showed no improvement and so he was sent for a CT s can of the chest that showed a large right hilar mass along with hilar mediastinal lymphadenopathy co ncerning for lung cancer. Since being admitted to the hospital, the patient states his breathing is much better and he feels well. In addition to his shortness of breath, the patient endorses a mild c ough productive of sputum with specks and streaks of blood. He also complains of approximately 10-po und weight loss over the last few months. He states his energy is good and only complains of mild fa tigue. He denies any nausea, vomiting, diarrhea, constipation, fevers or drenching night sweats. [facility] patient states that he quit smoking in 2005, but smoked about a pack a day since age 15. He has no family history of cancer, but thinks that his mother may have had some type of cancer, however, this was 40 years ago, so he is unsure. REVIEW OF SYSTEMS: Ten-point review of systems negative except as per HPI. PAST MEDICAL HISTORY: Coronary artery disease, diabetes, BPH, hyperlipidemia, hypertension, AFib. FAMILY HISTORY: Possible cancer in his mother. SOCIAL HISTORY: One pack per day from age 16 until age 65. Former alcohol use, none in the last 4 y ears. ALLERGIES: No known drug allergies. CURRENT MEDICATIONS: Reviewed. PHYSICAL EXAMINATION: VITAL SIGNS: Temperature 98.1, pulse 75, respirations 16, satting 94% on room air, blood pressure 13 4/60. GENERAL APPEARANCE: The patient is in no acute distress and appears stated age. HEENT: No oral lesions. Pupils are equally round and reactive to light. CARDIAC: S1, S2. Regular rate and rhythm. No murmurs, rubs or gallops. RESPIRATORY: Lungs are mostly clear to auscultation bilaterally except for minimal rales on the righ t side. ABDOMEN: Soft, nondistended, nontender. SKIN: No rash. NEUROLOGIC: Cranial nerves II-XII grossly intact and otherwise nonfocal exam. PSYCHIATRIC: Alert, oriented x3. LYMPHATIC: No palpable lymphadenopathy in the cervical, supraclavicular or axillary chains. LABORATORY DATA: White blood cells 17.6, hemoglobin 11.6, platelets 239,000 with 94.1% neutrophils. BUN 20, creatinine 0.95, hemoglobin A1c 6.6%, AST 64, ALT 12, total bilirubin 0.4, albumin 4.2. IMAGING DATA: CT chest with contrast dated 02/12/2018 shows a right hilar mass, which engulfs the ri ght pulmonary arteries and right lower lobe bronchus producing bronchial narrowing and peripheral den se atelectasis in the right lower lobe. It is difficult to separate the mass from the dense parenchy mal atelectasis and the approximated measurements are 6.5 cm craniocaudal in the coronal plane by salvador roximately 4 cm in width. The axial plane measures up to 5 cm in AP dimension. There may be associa pavithra secondary infection and consolidation. There is a spiculated parenchymal mass in the right upper lobe, which is bilobed and has a total measurement in the axial plane of 2.1 cm. There is evidence of an adjacent smaller nodule at this location measuring 1.2 cm. A 5 mm pleural based nodule posteri or left lower lobe midlung field. There is mediastinal adenopathy. Large paratracheal lymph node me asures 2.7 cm. Large subcarinal area of confluent adenopathy measures up to 3.5 cm. Osseous structu res appear unremarkable. There are numerous calcified mediastinal left hilar lymph nodes, which are not enlarged, consistent with old granulomatous infection. Images through upper abdomen are unremark able. Liver and spleen showed granulomatous calcification. EKG showed atrial fibrillation with rapi d ventricular response and heart rate of 122. ASSESSMENT AND PLAN: A 77-year-old male with new diagnosis of squamous cell carcinoma of t he right lung and new diagnosis of atrial fibrillation and pneumonia. The patient's atrial fibrillat ion has resolved and he has converted back to normal sinus rhythm. The patient's CT of the chest murphy ws a very large right hilar mass, 6.5 cm in greatest dimension, consistent with T3 disease. He also has 2 other right upper lobe lesions that appear like metastases. He has mediastinal lymphadenopathy ; however, limited imaging studies at this time do not show any disease outside of the chest. At thi s time, the patient appears to likely have a stage IIIB disease, however, more imaging is necessary. Would recommend CT of the abdomen and pelvis with contrast and MRI of the brain with and without con trast to evaluate for metastatic disease and complete staging. The patient will require a PET scan u tod discharge from the hospital. I discussed the pathologic results with the patient and his an d necessary further workup and potential treatment options depending on final staging. We will sched ule this patient to follow up with me as an outpatient at discharge. The patient also states that he is supposed to follow up with Cardiology for a potential left heart catheterization as an outpatient and if this is true, I would recommend this to be completed within the next 1-2 weeks, so that the p atient may be started on systemic therapy for his lung cancer. Thank you for this consult.
--- NOTE | 2018-02-18 13:00 | PDOC.CTH ---
Cardiology Progress Note - Subjective The pt seen and examined. No overnight events. No cardiac complaints. Cont. having intermittent SOB, especially after movement. - Objective Vital Signs Temp Pulse Resp BP Pulse Ox 02/18/18 10:51 97.8 F 64 20 118/61 94 L 02/18/18 10:00 75 16 94 L 02/18/18 08:54 73 02/18/18 08:45 98.1 F 83 19 134/60 94 L 02/18/18 06:30 66 18 93 L 02/18/18 06:26 66 16 91 L 02/18/18 03:44 98.3 F 70 17 122/60 93 L Weight 205 lb 14.588 oz 02/17/18 02/18/18 02/19/18 06:59 06:59 06:59 Intake Total 962 1760 Output Total 950 1425 Balance 12 335 - Physical Examination General/Neuro: alert & oriented x3 Neck: no JVD present Lungs: other: (coarses and diminished at bases) Heart: RRR Abdomen: soft Extremities: other: (No edema) - Telemetry Telemetry Rhythm: SR - Labs Result Diagrams: 02/17/18 07:21 02/17/18 07:21 Troponin/CKMB CK-MB (CK-2) 0.7 ng/mL (0-6.6) 02/14/18 18:10 Troponin I 0.010 ng/mL (< 0.028) 02/14/18 18:10 - Assessment/Plan 1. Typical Afitter with RVR - Converted to SR on 02/16/18. On Toprol and digoxin. On Lovenox, which will be changed to ASA and Plavix by Dr Domingo. Possible Aflutter ablation as an outpt. Cont. to monitor on tele. 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 PNA - managed by oil inspector/PCP 4. CAD with Hx of CABG in 2004 - stable; cont. 5. HTN - stable with Metoplol. 6. Hyperlipidemia - on Statin 7. DM type 2 - managed by PCP MAR reviewed * Echo on 02/15/18 showed EF 55-60%, mildly dilated LA, mild ERA, trace MR, mild TR. Review of Systems - Review of Systems Constitutional: reports: no symptoms reported EENTM: reports: no symptoms reported Respiratory: reports: see HPI Cardiac (ROS): reports: no symptoms reported ABD/GI: reports: no symptoms reported : reports: no symptoms reported Musculoskeletal: reports: no symptoms reported
[2018-02-18] MEDS ORDERED: Iopamidol 370 76% 100 ML VIAL ONE (13:18)
--- NOTE | 2018-02-18 14:55 | MRI ---
MRI BRAIN WITH AND WITHOUT CONTRAST: HISTORY: Squamous cell lung cancer. Evaluation for brain metastases. COMPARISON: None. FINDINGS: No hemorrhage on the axial gradient echo sequence. With regard to the cerebrum, no mass, mass effect, or midline shift. Age-appropriate atrophy. Corti shweta mendoza-white matter differentiation is preserved. Ventricles and sulci are patent and symmetric. T2 and FLAIR white matter hyperintensities with chronic small-vessel ischemic change. Central arterial flow voids are maintained. Absent restricted diffusion. There is no pathologic enhancement of the cerebrum. There is an enhancing focus in the left cerebell ar hemisphere measuring 4 mm, compatible with a small intraparenchymal metastatic focus. Additional abnormal enhancement/pathologic enhancement in the posterior fossa is not appreciated. Adequate aeration of the sinuses and mastoid air cells. IMPRESSION: 1. Solitary enhancing focus in the left cerebellar hemisphere, likely due to a small intraparenchyma l metastatic focus. 2. No evidence of supratentorial abnormal enhancement. 3. Age-appropriate atrophy. Chronic small-vessel ischemic change of the white matter. POS: OWEN
--- NOTE | 2018-02-18 15:42 | CT ---
CT ABDOMEN WITH CONTRAST CT PELVIS WITH CONTRAST 02/18/18 HISTORY: Squamous cell carcinoma. Evaluate for metastases. COMPARISON: None. TECHNIQUE: Abdomen and pelvic CT are performed with contrast. Coronal reformatted images are submitted for inter pretation. FINDINGS: There is consolidation of the right lower lobe, middle lobe and left lower lobe. Areas of atelectasis , infiltrate or malignancy should be considered. Evaluation is incomplete. Correlation made with CT f rom 02/12/18 demonstrates these opacities. Bilateral pleural effusions are noted and have developed s sohan the previous exam. Fullness of a right infrahilar region is also redemonstrated and incompletely evaluated. Abnormal attenuation of the posterior mediastinum is also noted. 5 mm hypodensity in the right hepatic lobe. Additional smaller ill-defined hypodensities may be prese nt but are difficult to assess (axial image #23, 22). Both adrenal glands, the pancreas and spleen payne ve normal attenuation. Nonspecific, nonenlarged gastrohepatic lymph node measured 1.4 x 1.0 cm. No re trocrural or periportal lymphadenopathy. No mesenteric mass, lymphadenopathy, free air, or free fluid. Symmetric enhancement of the kidneys. No obstructive uropathy. Gastric mucosa, duodenum, and small bowel loops are unremarkable. Ileocecal junction is normal. Diver ticulosis. No evidence of diverticulitis. No evidence of colon obstruction. PELVIC CT: Urinary bladder is unremarkable. Mild prostatic hypertrophy. No pelvic mass, lymphadenopathy, free ai r of free fluid. No lytic or blastic lesions in the osseous structures. IMPRESSION: 1. Subcentimeter hypodensities in the liver which are too small to characterize. 2. Pleural and parenchymal changes in the lung bases and mediastinum as well as right infrahilar region compatible with history of lung cancer. 3. Interval development of bilateral pleural effusions. POS: [facility]
[2018-02-19 10:18] LABS: Fungus Stain Final report (.)
[2018-02-19 10:18] LABS: Fungus Stain Final report (.)
== END 2018-02-18 15:09 | disposition home or self-care (01) | DRG 853 ==
LOC: SCSER 17:54 → 2NO 19:40
PROVIDERS: ADMIT Hospitalist; ATTEND Hospitalist
PROC: 0BBD8ZX Excision of Right Middle Lung Lobe, Via Natural or Artificial Opening Endoscopic, Diagnostic (ICD-10-PCS; principal; 2018-02-16)
PROC: 0B9D8ZX Drainage of Right Middle Lung Lobe, Via Natural or Artificial Opening Endoscopic, Diagnostic (ICD-10-PCS; 2018-02-16)
DX: A41.9 Sepsis, unspecified organism (principal); J15.9 Unspecified bacterial pneumonia; J96.01 Acute respiratory failure with hypoxia; I48.92 Unspecified atrial flutter; C34.90 Malignant neoplasm of unspecified part of unspecified bronchus or lung; I48.91 Unspecified atrial fibrillation; N40.0 Benign prostatic hyperplasia without lower urinary tract symptoms; I25.10 Atherosclerotic heart disease of native coronary artery without angina pectoris; E11.65 Type 2 diabetes mellitus with hyperglycemia; E78.5 Hyperlipidemia, unspecified; M10.9 Gout, unspecified; I10 Essential (primary) hypertension; J44.9 Chronic obstructive pulmonary disease, unspecified; Z87.891 Personal history of nicotine dependence; R59.0 Localized enlarged lymph nodes
CPT/HCPCS: 36415; 36416; 70553; 71045; 71260; 74177; 80048; 80053; 81003; 82553; 82565; 83605; 83880; 84484; 85025; 87040; 87070; 87102; 87116; 87205; 87206; 88104; 88112; 88305; 88313; 88341; 88342; 90471; 90670; 93005; 93306; 94640; 94664; 96365; 96367; 96372; 96375; 99152; 99153; G0009; J0171; J0456; J0692; J0696; J1160; J1650; J1956; J2001; J2250; J2920; J2930; J3010; J7050; J7506; J7620

== ENCOUNTER 2018-02-25 13:20 | Outpatient (CLI) | payer MEDICARE ==
--- NOTE | 2018-02-26 11:00 | PET ---
NUCLEAR MEDICINE PET CT FROM THE SKULL BASE TO THE MIDTHIGH: History: Lung cancer. Initial staging examination. Technique: A PET CT was performed from the skull base to through the midthigh after administration of 28 mCi of 18 FDG. FINDINGS: There is a large right hilar lung mass which encases the right mainstem bronchus. There is atelectasi s in the posterior segment of the right lower lobe. Hypermetabolic activity is seen in this right hil ar mass and in the area of atelectasis in the right lower lobe with a mass SUV value of 13.8. There i s a separate spiculated mass in the right upper lobe with a mass SUV value of 2.8. There are enlarged and hypermetabolic and mediastinal lymph nodes. The largest is seen in the subcarinal location measu ring 4.2 cm in size with a max SUV value of up to 7.1. There is an enlarged left lower cervical lymph node measuring 2.2 cm in size with a max SUV value of 9.7. No other enlarged or hypermetabolic cervical lymph nodes are seen. No pleural effusion is seen. No axillary adenopathy is seen. No suspicious or hypermetabolic activity is seen below the diaphragm. There are degenerative changes in the spine. At the T3 level within the posterior aspect of the verte bral body, there is a subtle blastic subcentimeter lesion which is not hypermetabolic activity with a SUV value of 2.1. No other questionable osseous lesions are identified. CT images used for attenuation correction show scattered diverticula in the colon. Atherosclerotic ca lcifications are seen in the aorta. IMPRESSION: 1. Right lung mass with separate satellite lesion in the right upper lobe as above. 2. There appears to be metastatic disease of the right lung cancer to the mediastinum and to a lower left cervical lymph node. 3. Questionable osseous metastases at the T3 level. A follow up examination should be performed to ev aluate for progression and to determine if this is potentially artifactual. POS: [facility]
== END 2018-02-25 13:21 | disposition home or self-care (01) ==
LOC: PET 13:20
PROVIDERS: ATTEND Internal Medicine Hematology & Oncology
DX: C34.90 Malignant neoplasm of unspecified part of unspecified bronchus or lung (principal); R91.8 Other nonspecific abnormal finding of lung field
CPT/HCPCS: 78815; A9552

== ENCOUNTER → 2018-03-15 | Day surgery (SDC) | payer MEDICARE ==
[2018-03-12 13:22] VITALS: BMI 26.2
[~2018-03-15] MED LIST: Bupivacaine/Epinephrine 0.25% 30 ML VIAL ONE; Fentanyl 100 MCG/2 ML VIAL ONE; Ketamine 50 MG/ML VIAL ONE; Lidocaine 2% PF 5 ML VIAL ONE; Midazolam HCl 5 mg/5 ml Vial ONE
--- NOTE | 2018-03-15 08:39 | OP ---
DATE OF PROCEDURE: 03/15/2018 PREOPERATIVE DIAGNOSIS: Lung cancer. POSTOPERATIVE DIAGNOSIS: Lung cancer. PROCEDURE PERFORMED: Tunneled central line subcutaneous port (MediPort, CT injectable). SURGEON: Hitesh Olivas M.D. ANESTHESIA: TIVA, local. ESTIMATED BLOOD LOSS: Minimal. COMPLICATIONS: None. FINDINGS: Tip of the catheter is at the atriocaval junction. TECHNIQUE: The patient was taken to the operating room and placed supine on the table. After sedati on was obtained, bilateral neck and chest were shaved, prepped, and draped in a sterile fashion. Loc al anesthetic infiltrated over the left IJ vein. Internal jugular vein is cannulated using a 22-gaug e finder needle followed by a Seldinger needle. Wire was passed into the superior vena cava under fl uoroscopic guidance. A small precious was made at the wire entrance site. A separate 3-cm incision is m hi in the left upper chest. Subcutaneous pocket made below the lower incision. Tubing for the Medi Port tunneled from the inferior to superior incision. Introducer sheath was placed over the wire int o the superior vena cava under fluoroscopic guidance. The dilator and wire was removed. The end of the catheter was threaded into the sheath and the sheath is peeled away. The tip of the catheter is at the atriocaval junction. MediPort tubing is cut to fit the MediPort at the lower incision, connec pavithra to the Mediport which is sewn to the chest wall and the subcutaneous pocket using Prolene. MediP ort flushes and draws blood without difficulties, flushed with a heparin flush. All port sites are i nfiltrated using local anesthetic. All ports are closed using 3-0 Monocryl, 4-0 Monocryl, and Dermab ond. The patient was en route to recovery in stable condition. All instrument counts, needle counts , and lap counts were correct.
--- NOTE | 2018-03-15 08:59 | RAD ---
PORTABLE CHEST: Date: 03-15-18 Provided Clinical History: Pre op. FINDINGS: Comparison 02-14-18. The cardiac silhouette appears enlarged, which may be at least partially on the basis of portable marog hnique. Left IJ implanted port is noted with tip in the expected location of the cavoatrial junction. Median sternotomy changes are seen. There is pleural and/or parenchymal opacity involving the right mid and lower lung zones, incompletely characterized on the basis of this study. There is right hilar mass suspected. The left lung appears grossly clear. IMPRESSION: 1. Right hilar mass is suspected with associated right basilar pleural and parenchymal opacity. POS: OFF
== END ==
LOC: SDC 05:57
PROVIDERS: ATTEND Surgery
PROC: 0JH63WZ Insertion of Totally Implantable Vascular Access Device into Chest Subcutaneous Tissue and Fascia, Percutaneous Approach (ICD-10-PCS; principal; 2018-03-15)
DX: C34.90 Malignant neoplasm of unspecified part of unspecified bronchus or lung (principal); E11.9 Type 2 diabetes mellitus without complications; I10 Essential (primary) hypertension; M10.9 Gout, unspecified; Z79.02 Long term (current) use of antithrombotics/antiplatelets; Z79.82 Long term (current) use of aspirin; Z79.84 Long term (current) use of oral hypoglycemic drugs; Z79.899 Other long term (current) drug therapy; Z88.8 Allergy status to other drugs, medicaments and biological substances
CPT/HCPCS: 36416; 71045; C1788; J1642; J2001; J2250; J3010; J7620

== ENCOUNTER 2018-03-22 10:22 | Inpatient (IN) | payer MEDICARE ==
[2018-03-22 11:02] LABS: #Basophils 0.1 thou/uL (0.0-0.2); #Eosinphils 0.1 thou/uL (0.0-0.7); #Lymphocytes 1.1 thou/uL (1.20-3.40); #Monocytes 0.2 thou/uL (0.11-0.59); #Neutrophils 10.4 thou/uL (1.40-6.50); %Basophils 0.6 % (0.0-1.0); %Eosinophils 1.1 % (0.0-10.0); %Lymphocytes 9.1 % (21.0-51.0); %Monocytes 1.3 % (0.0-10.0); %Neutrophils 87.8 % (42.0-75.0); Hemoglobin 12.7 g/dL (14.0-18.0); Mean Corpuscular HGB CONC 32.5 g/dL (32.0-36.0); Mean Corpuscular Hemoglobin 28.2 pg (27.0-31.0); Mean Corpuscular Volume 86.7 fL (78.0-98.0); Mean Platelet Volume 8.6 fL (7.4-10.4); Platelet Count 223 thou/uL (130-400); RBC Distribution Width 13.2 % (11.5-14.5); Red Blood Cell (RBC) Count 4.51 mill/uL (4.70-6.10); White Blood Cell (WBC) Count 11.9 thou/uL (4.8-10.8)
[2018-03-22 11:18] LABS: ALT (SGPT) 14 U/L (8-55); AST (SGOT) 106 U/L (5-34); Albumin 3.6 g/dL (3.4-4.8); Alkaline Phosphatase 72 U/L (40-150); Anion Gap 15 mmol/L (10-20); BUN (Urea Nitrogen) 10 mg/dL (8.4-25.7); Bilirubin, Total 0.7 mg/dL (0.2-1.2); Calc. Creatinine Clearance 0 mL/min (70-130); Calcium 9.1 mg/dL (7.8-10.44); Carbon Dioxide 25 mmol/L (23-31); Chloride 101 mmol/L (98-107); Estimated GFR-MDRD Greater than 90; Globulin 2.7 g/dL (2.4-3.5); Glucose 146 mg/dL (83-110); Protein, Total 6.3 g/dL (5.8-8.1); Sodium 137 mmol/L (136-145)
[2018-03-22 11:20] LABS: CKMB 0.9 ng/mL (0-6.6); Troponin I 0.029 ng/mL (< 0.028)
[2018-03-22 11:25] LABS: Bilirubin Negative (Negative); Blood, Urine Negative (Negative); Clarity Clear (Clear); Glucose, Urine (Dipstick) Negative (Negative); Leukocyte Negative (Negative); Nitrite Negative (Negative); Protein, Urine (Dipstick) 30 mg/dL (Neg-Trace); Specific Gravity, Urine 1.025 (1.005-1.030); Urobilinogen 0.2 mg/dL (0.2-1.0); pH, Urine 5.5 (5.0-9.0)
[2018-03-22 11:39] LABS: Bacteria/HPF None Seen HPF (None Seen); RBC/HPF 0-3 HPF (0-3); Squamous Epithelial 0-3 HPF (0-3); WBC/HPF 0-3 HPF (0-3)
[2018-03-22] MEDS ORDERED: Piperacillin/Tazobactam 4.5 GM VIAL ONE (11:40)
[2018-03-22] MEDS ORDERED: Sodium Chloride 0.9% 100 ML ONE (11:40)
[2018-03-22] MEDS ORDERED: Metoprolol Tartrate 5 MG/5 ML VIAL ONE ×2 (11:50→15:36)
--- NOTE | 2018-03-22 13:38 | RAD ---
FRONTAL VIEW CHEST: COMPARISON: 03/15/2018. INDICATION: Hypoxia. FINDINGS: There is a region of added density at the mid to inferior right hemithorax which obscures the right l alber base and the right hemidiaphragm. The cardiac silhouette and pulmonary vasculature are enlarged with bilateral interstitial prominence. There is artifactual density overlying the left hilum which limits assessment. A left-sided chest port is present. Evidence of prior sternotomy. IMPRESSION: Prominent opacity at the mid inferior right chest, nonspecific. A component of pleural fluid with un derlying mass/consolidation may produce this radiographic imaging appearance. Continued followup is recommended. POS: [facility]EN
[2018-03-22] MEDS ORDERED: HYDROcodone/Acetaminophen 10/325 mg Tablet ONE (13:54)
[2018-03-22] MEDS ORDERED: Acetaminophen 325 MG TAB ONE (13:55)
[2018-03-22 14:49] LABS: Lactic Acid 1.1 mmol/L (0.5-2.2)
[2018-03-22 15:18] LABS: Troponin I 0.026 ng/mL (< 0.028)
[2018-03-22 16:47] VITALS: BMI 26.4
[2018-03-22] MEDS ORDERED: Nitroglycerin 0.4 MG TAB (25 Tab Bottle) SL PRN (18:39)
[2018-03-22] MEDS ORDERED: Dextrose 5% in Water 1,000 ML IV PRN (18:39)
[2018-03-22] MEDS ORDERED: Dextrose 50% Abboject 50 ML SYRINGE SLOW IVP PRN (18:39)
[2018-03-22 19:20] LABS: Digoxin 0.24 ng/mL (0.8-2.0)
[2018-03-22] MEDS: Mometasone/Formoterol 120 PUFF INHALER INH SCH (19:40)
[2018-03-22] MEDS: Piperacillin/Tazobactam 3.375 GM in Sodium Chloride 0.9% 100 ML IVPB SCH (20:55)
[2018-03-22] MEDS: Apixaban 5 MG TAB PO SCH (20:56)
[2018-03-22] MEDS ORDERED: Vancomycin HCl 1 GM in Premix Bag 1 BAG IVPB SCH (21:00)
[2018-03-22] MEDS ORDERED: ICOSAPENT ETHYL 2 GM PO SCH ×2 (21:00)
[2018-03-22] MEDS: Guaifenesin DM 100-10/5 ML UDCUP PO PRN (22:08)
[2018-03-22] MEDS: guaiFENesin/DM ER PO SCH (22:10)
[2018-03-22] MEDS: Vancomycin HCl 1.25 GM in Sodium Chloride 0.9% 250 ML 250 ML IVPB SCH (23:47)
--- NOTE | 2018-03-23 00:17 | HP ---
PRIMARY CARE PHYSICIAN: City call admission. CHIEF COMPLAINT: Shortness of breath. HISTORY OF PRESENT ILLNESS: Mr. Tobin is a pleasant 77-year-old gentleman that has a history of recent diagnosis of squamous cell carcinoma of the lung as well as diabetes mellitus and coronary art kyle disease. He also has a history of atrial fibrillation and atrial flutter in which he is on aspir in and Plavix for anticoagulation. He was recently admitted to our facility for pneumonia. He says that when he left the hospital, he says he was still "breathing a little bit hard" and since then he has had few good days, but then he started getting more and more congested and more short of breath. He says he has a cough and rattling in his chest. The cough is productive of some yellow and green sputum. He denies having any chest pain, no abdominal pain, no nausea, no vomiting. However, due to the difficulty with his breathing, he went to the emergency room for evaluation. There, he was foun d to be in atrial fibrillation with rapid ventricular response. He also had a chest x-ray which was suspicious for possible infiltrate and he is being admitted for further evaluation and treatment. It is noted that on his previous admission when he was diagnosed for atrial flutter, there were plans o f possible ablation, but he has not had this procedure performed yet. REVIEW OF SYSTEMS: All systems were reviewed and are negative except for that mentioned in history o f present illness. PAST MEDICAL HISTORY: Significant for coronary artery disease, diabetes mellitus, BPH, hyperlipidemi a, hypertension and atrial flutter. PAST SURGICAL HISTORY: He has had a MediPort placed. ALLERGIES: No known drug allergies. FAMILY HISTORY: Unknown. He says they did not know what people of back then. SOCIAL HISTORY: He is . He would like to be a FULL CODE. He denies any alcohol use. He is a former smoker. He quit in 2005, but smoked at least 4 years. CURRENT MEDICATIONS: Include Eliquis 5 mg twice a day, allopurinol 100 mg daily, vitamin C 1000 mg d aily, Plavix half of 75 mg tablet daily, vitamin B12 500 mcg daily, simvastatin 1 tablet daily, finas teride 5 mg daily, Vascepa 2 grams twice a day, Tradjenta 5 mg daily, metformin 1000 mg twice daily, metformin extended release 25 mg daily, multivitamin 2 tablets daily, nitroglycerin 0.4 sublingual p. r.n., Protonix 40 mg daily, Actos 15 mg daily, pumpkin seed extract 300 mg daily, saw palmetto 900 mg daily, digoxin 0.125 mg daily, and Dulera 200/5 two puffs twice daily. PHYSICAL EXAMINATION: GENERAL: He is alert and oriented. He appears to be in no acute distress. He is well-developed, we ll-nourished. VITAL SIGNS: His heart rate currently is 115, respiratory rate of 20, temperature is 98.4, O2 satura tion is 93% on 3 liters and blood pressure was 120/75. HEENT: Pupils are equal, round and reactive. Extraocular muscles are intact. Sclerae are anicteric . Throat no erythema, no exudates. NECK: No adenopathy, no bruits. He did have some mild increase in jugular venous distention. LUNGS: He has got rhonchi and upper airway noise throughout, no appreciable rales, no wheezing. CARDIOVASCULAR: His heart rate is irregular. He is tachycardic. There were a 2/6 systolic murmur. ABDOMEN: Obese, it is soft, it is nontender, nondistended. Positive for bowel sounds. There is no rebound, no guarding, no organomegaly. EXTREMITIES: He has got trace pedal edema. There are no other skin changes. NEUROLOGIC: His cranial nerves II-XII are intact. Muscle strength is 5/5 in both his upper and lowe r extremities. SKIN AND INTEGUMENT: No skin changes. No rash. IMAGING DATA: Chest x-ray showed some mild cardiomegaly and there was bilateral interstitial promine nce and elevation of the right hemidiaphragm and possible right pleural effusion. This is by my read ing. EKG was atrial fibrillation with rapid ventricular response. This is also by my reading. His white blood cell count was 11.9, hemoglobin 12.7, hematocrit is 39.1, and platelet count is 223. Sod ium 137, potassium 4.0, chloride is 101, CO2 is 25, BUN of 10, creatinine 0.82, glucose is 146. Urin alysis was essentially negative. ASSESSMENT AND PLAN: 1. This is a pleasant 77-year-old gentleman that comes to the emergency room with shortness of breat h and cough which is productive. He was found to be in atrial fibrillation with rapid ventricular re sponse and also possibly has a new infiltrate. For the plan for atrial fibrillation with rapid ventr icular response, he has been given IV Cardizem in the ER and Cardizem drip was not started due to con cerns for bradycardia as this apparently happened on a previous admission. Currently, his heart rate is in the 110s. We will go ahead and hold the Cardizem drip check a digoxin level and if this is lo w, we will give him a dose of IV digoxin if necessary. Electrophysiology will be consulted for possi ble ablation or cardioversion. We will continue his other home medications. 2. For healthcare associated pneumonia versus postobstructive pneumonia, he will be placed on broad spectrum IV antibiotics for this. 3. For diabetes mellitus, we will continue his usual home medications for diabetes as well as a slid ing scale. Metformin will be held; however. 4. Hypertension, again home medications will be started as well as p.r.n. medicines.
[2018-03-23] MEDS: Piperacillin/Tazobactam 3.375 GM in Sodium Chloride 0.9% 100 ML IVPB SCH ×4 (03:57→19:50)
[2018-03-23] MEDS: Acetaminophen 325 MG TAB PO PRN ×2 (03:58→23:36)
[2018-03-23 04:34] LABS: Anion Gap 12 mmol/L (10-20); BUN (Urea Nitrogen) 11 mg/dL (8.4-25.7); Calc. Creatinine Clearance 96 mL/min (70-130); Calcium 8.7 mg/dL (7.8-10.44); Carbon Dioxide 28 mmol/L (23-31); Chloride 102 mmol/L (98-107); Estimated GFR-MDRD Greater than 90; Glucose 139 mg/dL (83-110); Potassium 4.1 mmol/L (3.5-5.1); Sodium 138 mmol/L (136-145)
[2018-03-23 04:47] LABS: Band 5 % (5-11); Eosinophils 4 % (0-10); Hemoglobin 11.7 g/dL (14.0-18.0); Lymphocytes 18 % (21-51); MDiff Complete? YES; Mean Corpuscular HGB CONC 32.4 g/dL (32.0-36.0); Mean Corpuscular Hemoglobin 29.5 pg (27.0-31.0); Mean Corpuscular Volume 91.1 fL (78.0-98.0); Mean Platelet Volume 8.4 fL (7.4-10.4); Neutrophil 73 % (42-75); PLT Morphology Comment Appears Adequate; Platelet Count 236 thou/uL (130-400); RBC Distribution Width 13.1 % (11.5-14.5); Red Blood Cell (RBC) Count 3.97 mill/uL (4.70-6.10); White Blood Cell (WBC) Count 10.8 thou/uL (4.8-10.8)
[2018-03-23] MEDS: Diltiazem HCl 125 MG, Admixture Fee 1 EACH in Sodium Chloride 0.9% 100 ML IVPB SCH (04:53)
[2018-03-23] MEDS: Mometasone/Formoterol 120 PUFF INHALER INH SCH (06:57)
[2018-03-23] MEDS: Pioglitazone HCl 15 MG TAB PO SCH (08:58)
[2018-03-23] MEDS: Alogliptin 25 MG TAB PO SCH (08:58)
[2018-03-23] MEDS: Saccharomyces boulardii 250 MG CAP PO SCH (08:58)
[2018-03-23] MEDS: Digoxin 0.125 MG TAB PO SCH (08:58)
[2018-03-23] MEDS: Ascorbic Acid 500 mg Chewable Tablet PO SCH (08:58)
[2018-03-23] MEDS: Cyanocobalamin (Vitamin B-12) 1,000 MCG TAB PO SCH (08:59)
[2018-03-23] MEDS: Allopurinol 100 MG TAB PO SCH (08:59)
[2018-03-23] MEDS: Multivitamin W/ Minerals 1 TAB PO SCH (08:59)
[2018-03-23] MEDS: Clopidogrel Bisulfate 75 MG TAB PO SCH (08:59)
[2018-03-23] MEDS: Apixaban 5 MG TAB PO SCH ×2 (08:59→19:49)
[2018-03-23] MEDS: Finasteride 5 MG TAB PO SCH (08:59)
[2018-03-23] MEDS: guaiFENesin/DM ER PO SCH ×2 (09:00→19:50)
[2018-03-23] MEDS ORDERED: Digoxin 0.5 MG/2 ML AMP SLOW IVP SCH (09:30)
--- NOTE | 2018-03-23 09:31 | PDOC.PN ---
- Subjective Encounter Start Date: 03/23/18 Encounter Start Time: 09:27 Mr. Gurrola was seen today in follow-up of AFIB with RVR and possible pneumonia. He says he feels ok, until he tries to sit back. He feels congested - Objective Resuscitation Status: Resuscitation Status FULL:Full Resuscitation MAR Reviewed: Yes Vital Signs & Weight: Vital Signs (12 hours) Temp Pulse Resp BP Pulse Ox 03/23/18 08:58 160 H 03/23/18 07:59 99 03/23/18 07:25 97.7 F 117 H 29 H 133/67 98 03/23/18 06:57 106 H 20 99 03/23/18 06:55 106 H 20 99 03/23/18 04:00 98.7 F 163 H 20 149/97 H 92 L 03/23/18 00:14 109 H 20 97 03/22/18 23:53 98.6 F 81 18 114/50 L 98 03/22/18 23:41 98 Weight Weight 195 lb I&O: 03/22/18 03/23/18 03/24/18 06:59 06:59 06:59 Intake Total 1277 Output Total 600 Balance 677 Result Diagrams: 03/23/18 03:37 03/23/18 03:37 Additional Labs: Accuchecks 03/23/18 03/22/18 05:41 22:08 POC Glucose 158 H 156 H Phys Exam - Physical Examination HEENT: PERRLA + rhonchi bilaterally, and upper airway noise, improved from yesterday Cardiovascular: no significant murmur, no rub, irregular + tachycardic, Gastrointestinal: soft, non-tender, no distention, positive bowel sounds Musculoskeletal: pulses present, edema present Neurological: non-focal, moves all 4 limbs Psychiatric: normal affect, A&O x 3 Dx/Plan (1) Atrial fibrillation with RVR Code(s): I48.91 - UNSPECIFIED ATRIAL FIBRILLATION Status: Acute Comment: today in NSR (2) Healthcare-associated pneumonia Code(s): J18.9 - PNEUMONIA, UNSPECIFIED ORGANISM Status: Acute (3) Acute respiratory failure with hypoxia Code(s): J96.01 - ACUTE RESPIRATORY FAILURE WITH HYPOXIA Status: Acute (4) CAD (coronary artery disease) Code(s): I25.10 - ATHSCL HEART DISEASE OF [place] CORONARY ARTERY W/O ANG PCTRS Status: Chronic (5) Diabetes type 2, controlled Code(s): E11.9 - TYPE 2 DIABETES MELLITUS WITHOUT COMPLICATIONS Status: Chronic (6) Hypertension Code(s): I10 - ESSENTIAL (PRIMARY) HYPERTENSION Status: Chronic (7) Squamous cell lung cancer Code(s): C34.90 - MALIGNANT NEOPLASM OF UNSP PART OF UNSP BRONCHUS OR LUNG Status: Chronic - Plan * AFIB with RVR- continue Cardizem drip, and will give an additional dose of Digoxin, as his level was low * Await further recommendations from EP. His regular Settlement Processor is Dr. Soni * Possible Healthcare Associated Pneumonia- will continue Vancomycin and Zpsyn * Possible Volume overload- will give a dose of Lasix IV * HTN- blood pressure is controlled * DM- Blood glucose is stable * Squamous cell cancer of the Lung- patient just recently had a round of chemotherapy, next planned in 3 weeks. ( Oncologist is Dr. San)
[2018-03-23] MEDS ORDERED: Digoxin 0.125 MG TAB PO SCH (10:00)
[2018-03-23] MEDS ORDERED: Furosemide 20 MG/2 ML VIAL SLOW IVP SCH (10:00)
[2018-03-23] MEDS: HumaLOG 300 UNITS/3 ML VIAL SC PRN ×3 (10:58→21:09)
--- NOTE | 2018-03-23 11:57 | CON ---
DATE OF CONSULTATION: 03/23/2018 Seventy minutes of time, of that, greater than 50% spent with the patient and/or in the patient's uni t in the hospital. REASON FOR CONSULTATION: Acute hypoxic respiratory failure. HISTORY OF PRESENT ILLNESS: Mr. Tobin is a pleasant 77-year-old male who was recently diagnosed with stage IV non-small cell lung cancer by Dr. Maciel. He received his first dose of chemotherapy abo co 3 days ago. Yesterday, he began feeling ill and came to the hospital with increasing shortness of breath and pulmonary congestion. He was also noted to be in atrial fibrillation with a rapid ventri cular response. PAST MEDICAL HISTORY: 1. 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 Primary tumor was in the right middle lobe. 2. Diabetes mellitus type 2. 3. Coronary artery disease. 4. Prostatic hypertrophy. 5. Hyperlipidemia. 6. Hypertension. 7. Atrial flutter. PAST SURGICAL HISTORY: MediPort placement and recent bronchoscopy. ALLERGIES: None. SOCIAL HISTORY: Former smoker, quit in 2005. Does not consume alcohol. MEDICATIONS PRIOR TO ADMISSION: Eliquis, allopurinol, vitamin C, Plavix, vitamin B12, simvastatin, f inasteride, Vascepa, , Tradjenta, metformin, multivitamin, nitroglycerin, Protonix, Actos, pumpk in seed extract, Saw [place], digoxin, and Dulera. REVIEW OF SYSTEMS: Twelve-point review of systems was negative. PHYSICAL EXAMINATION: VITAL SIGNS: Temperature 97.7, pulse running between , currently 113, respiratory rate in the m id 20s, O2 sat 97% on 4 liters, blood pressure 133/67. GENERAL: The patient appears to be in moderate respiratory distress. He has audible rhonchi bilater ally without putting stethoscope on his chest. HEENT: Unremarkable. NECK: No adenopathy, no JVD, no bruits. LUNGS: Coarse rhonchi bilaterally, right greater than left. CARDIAC: S1, S2 irregularly irregular without audible murmur. ABDOMEN: Soft, nontender. EXTREMITIES: No clubbing, cyanosis, or edema. LABORATORY DATA: White blood cell count 10.8, hematocrit 36.2, platelet count 236. Sodium 138, pota ssium 4.1, chloride 102, CO2 of 28, BUN 11, creatinine 0.8, glucose 139. Urinalysis showed proteinur ia. Digoxin level was 0.24. Chest x-ray shows cardiomegaly. There looks to be collapse of the right middle lobe. There is an in creased right peritracheal stripe consistent with adenopathy. ASSESSMENT: 1. Postobstructive pneumonia. 2. Chronic obstructive pulmonary disease with exacerbation. 3. Lung cancer. 4. Atrial fibrillation/flutter with increased ventricular response. RECOMMENDATIONS: 1. Broad spectrum IV antibiotics. 2. Start IV steroids. 3. Increase nebulization treatment frequency and add EzPAP to that. 4. Discontinue Dulera and start Brovana and Pulmicort. 5. Atrial fibrillation management per Cardiology. I think the increased ventricular response is henna narayan due to patient's current underlying pulmonary issues. I will notify Dr. Maciel, the patient's hosp italization.
[2018-03-23] MEDS: Vancomycin HCl 1.25 GM in Sodium Chloride 0.9% 250 ML 250 ML IVPB SCH ×2 (12:01→23:35)
[2018-03-23] MEDS: Dronedarone HCl 400 MG TAB PO SCH (17:31)
[2018-03-23] MEDS: Arformoterol 15 MCG/2 ML NEB NEB SCH (18:25)
[2018-03-23] MEDS: Budesonide 0.5 MG/2 ML NEB INH SCH (18:26)
--- NOTE | 2018-03-23 19:14 | CON ---
DATE OF CONSULTATION: 03/23/2018 REFERRING PHYSICIAN: Vadim Dorsey M.D. REASON FOR CONSULTATION: Atrial fibrillation with RVR, atrial flutter. HISTORY OF PRESENT ILLNESS: Mr. Tobin is a pleasant 77-year-old gentleman who was initially referred to us when he was an inpatient at [facility] this fall. He was found to be in typical atrial flutter, but spontaneously converted on diltiazem drip. He was discharged and outpatient arrangements for ablation are being arranged. At his followup appointment, he was found to be in rate controlled atrial fibrillation. During his last hospitalization, he underwent bronchoscopy with a biopsy and was diagnosed with squamous cell carcinoma. He follows with Oncology. He is currently on Eliquis and half dose Plavix for anticoagulation. He is tolerating this well without bleeding issues. At his last appointment, it was decided to have him wear a 1- week monitor to assess for burden of his arrhythmias and for any correlation with symptoms. He is about to complete that one-week monitor. Pending those results, we are considering adding Multaq for arrhythmia suppression. Today, Mr. Tobin presented to the emergency room with severe shortness of breath and was found to be in atrial flutter with rapid which then developed into atrial fibrillation with RVR. He is currently on a diltiazem drip for rate control. He is struggling greatly with the shortness of breath right now. He received his first dose of chemotherapy approximately 3 days ago and began to feel very ill with increasing shortness of breath and congestion, prompting his visit to the emergency room and admission for further evaluation. PAST MEDICAL HISTORY: 1. Typical atrial flutter with rapid ventricular response. 2. Atrial fibrillation. 3. Coronary artery disease with prior bypass grafting in 2005 and myocardial infarction in 09/2017. 4. Hypertension. 5. Hyperlipidemia. 6. History of smoking. 7. Chronic obstructive pulmonary disease. 8. Carotid artery stenosis, status post right carotid endarterectomy. 9. Benign prostatic hypertrophy. 10. Squamous cell carcinoma diagnosed in 02/2018, currently undergoing chemotherapy. 11. Type 2 diabetes. 12. 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 PAST SURGICAL HISTORY: MediPort placement and recent bronchoscopy. REVIEW OF SYSTEMS: Twelve-point review of systems was conducted and is positive for shortness of breath and occasional heart racing, otherwise is negative and as per HPI. ALLERGIES: None. HOME MEDICATIONS: Include metformin 1000 mg b.i.d., Plavix 37.5 mg p.o. daily, Eliquis 5 mg p.o. b.i.d., Vascepa 2 grams p.o. b.i.d., finasteride 5 mg p.o. daily, vitamin B12 of 500 mcg daily, ezetimibe/simvastatin 1 tab p.o. at bedtime , digoxin 125 mcg daily, vitamin C daily, Actos 15 mg daily, Protonix 40 mg daily, nitroglycerin as needed, multivitamin daily, mometasone/formoterol inhaler b.i.d., Toprol-XL 25 mg daily, Tradjenta 5 mg daily, allopurinol 100 mg daily, Mucinex b.i.d., saw palmetto daily. SOCIAL HISTORY: Former smoker, quit in 2016. Negative for alcohol or illicit drug use. FAMILY HISTORY: Noncontributory. PHYSICAL EXAMINATION: VITAL SIGNS: Recent vital signs, temperature 98.4, pulse 107, respirations 27, oxygen 95% on 4 liter nasal cannula, blood pressure 107/51. GENERAL: This is an elderly gentleman who does appear to be struggling some with his respirations. He is in a semi recumbent position. He is alert and oriented. Speech is clear. Affect is appropriate. NEUROLOGIC: He is grossly intact and exam is nonfocal. NECK: Supple without jugular venous distention. PULMONARY: Audible rhonchi without auscultation, but upon auscultation, right is greater than the left. CARDIAC: Heart rate is regularly irregular and heart rate is rapid. PMI nondisplaced. EXTREMITIES: Warm and dry to touch without clubbing, cyanosis or edema. ABDOMEN: Soft, nontender without palpable masses. DATABASE AND LABORATORY DATA: Hemoglobin 11.7, hematocrit 36.2. WBC 10.8, platelet count 236. Chemistry with potassium 4.1, creatinine is 0.81. Sodium 138. Digoxin level 0.24. Chest x-ray shows cardiomegaly. Telemetry, all were personally reviewed which initially reflect rapid typical atrial flutter that then progresses into atrial fibrillation with RVR. Currently, moderate rate control on a diltiazem drip. IMPRESSION: 1. Paroxysmal atrial flutter, spontan converted in and out of persistent atrial fibrillation. 2. Squamous cell carcinoma stage IV, currently on chemotherapy, now with respiratory failure. 3. Oral anticoagulation, on Eliquis and Plavix. RECOMMENDATIONS AND PLAN: Eliquis was started 30 days prior in clinic at his appointment. I will add Multaq 400 mg p.o. b.i.d. to his medical regimen for arrhythmia suppression. He may spontaneously convert, otherwise can do a cardioversion once he has medically stabilized. We are also considering doing a CTI ablation for the typical atrial flutter once he is better compensated. This can be done as an outpatient or an inpatient. Ultimately going after his left atrial arrhythmias with ablation may be overly aggressive with his ongoing pulmonary issues so for right now, that we do tend to initiate with the right- sided typical flutter initially and then progressing into left-sided atrial fibrillation. I think he could get some good relief by undergoing ablation of his typical right-sided CTI dependent flutter. Thank you for allowing us to participate in the care of this patient. We will continue to follow through hospital stay. MARILY
[2018-03-23] MEDS: Ezetimibe 10 MG TAB PO SCH (19:50)
[2018-03-23 23:35] LABS: Vancomycin, Trough 9.4 ug/mL
[2018-03-24] MEDS: Piperacillin/Tazobactam 3.375 GM in Sodium Chloride 0.9% 100 ML IVPB SCH ×4 (04:29→20:19)
[2018-03-24 04:32] LABS: #Lymphocytes 0.7 thou/uL (1.20-3.40); #Neutrophils 5.7 thou/uL (1.40-6.50); %Basophils 0.2 % (0.0-1.0); %Eosinophils 0.2 % (0.0-10.0); %Lymphocytes 10.2 % (21.0-51.0); %Monocytes 0.4 % (0.0-10.0); %Neutrophils 88.9 % (42.0-75.0); Hemoglobin 11.3 g/dL (14.0-18.0); Mean Corpuscular HGB CONC 32.2 g/dL (32.0-36.0); Mean Corpuscular Hemoglobin 29.3 pg (27.0-31.0); Mean Corpuscular Volume 90.9 fL (78.0-98.0); Mean Platelet Volume 8.4 fL (7.4-10.4); Platelet Count 222 thou/uL (130-400); RBC Distribution Width 12.9 % (11.5-14.5); Red Blood Cell (RBC) Count 3.86 mill/uL (4.70-6.10); White Blood Cell (WBC) Count 6.4 thou/uL (4.8-10.8)
[2018-03-24 04:49] LABS: Anion Gap 11 mmol/L (10-20); BUN (Urea Nitrogen) 11 mg/dL (8.4-25.7); Calc. Creatinine Clearance 102 mL/min (70-130); Calcium 8.7 mg/dL (7.8-10.44); Carbon Dioxide 29 mmol/L (23-31); Chloride 101 mmol/L (98-107); Estimated GFR-MDRD Greater than 90; Glucose 195 mg/dL (83-110); Potassium 3.9 mmol/L (3.5-5.1); Sodium 137 mmol/L (136-145)
[2018-03-24] MEDS: HumaLOG 300 UNITS/3 ML VIAL SC PRN ×4 (05:34→20:23)
[2018-03-24] MEDS: Budesonide 0.5 MG/2 ML NEB INH SCH ×2 (07:31→18:20)
[2018-03-24] MEDS: Arformoterol 15 MCG/2 ML NEB NEB SCH ×2 (07:32→18:19)
--- NOTE | 2018-03-24 07:48 | PDOC.PN ---
- Subjective Encounter Start Date: 03/24/18 Encounter Start Time: 07:44 Mr. Gurrola was seen today in follow-up of AFIB with RVR. He is breathing better. He denies any chest pain. - Objective Resuscitation Status: Resuscitation Status FULL:Full Resuscitation MAR Reviewed: Yes Vital Signs & Weight: Vital Signs (12 hours) Temp Pulse Resp BP BP Pulse Ox 03/24/18 07:34 98.3 F 107 H 23 H 106/77 90 L 03/24/18 07:31 96 18 94 L 03/24/18 03:52 98.7 F 91 20 107/60 92 L 03/24/18 02:22 92 16 92 L 03/23/18 23:43 99.2 F 94 20 117/69 93 L 03/23/18 22:14 98 20 93 L 03/23/18 20:37 98 Weight Weight 195 lb I&O: 03/23/18 03/24/18 03/25/18 06:59 06:59 06:59 Intake Total 1277 2603.6 Output Total 600 2955 Balance 677 -351.4 Result Diagrams: 03/24/18 04:14 03/24/18 04:14 Additional Labs: Accuchecks 03/24/18 03/23/18 03/23/18 05:33 20:06 16:42 POC Glucose 200 H 255 H 185 H 03/23/18 10:42 POC Glucose 200 H Phys Exam - Physical Examination HEENT: PERRLA Respiratory: wheezing present + rhonchi bilaterally, and rales at the bases Cardiovascular: irregular mildly tachycardic, no murmurs Gastrointestinal: soft, non-tender, no distention, positive bowel sounds Musculoskeletal: edema present trace pedal edema Neurological: non-focal, moves all 4 limbs Dx/Plan (1) Atrial fibrillation with RVR Code(s): I48.91 - UNSPECIFIED ATRIAL FIBRILLATION Status: Acute Comment: today in NSR (2) Healthcare-associated pneumonia Code(s): J18.9 - PNEUMONIA, UNSPECIFIED ORGANISM Status: Acute (3) Acute respiratory failure with hypoxia Code(s): J96.01 - ACUTE RESPIRATORY FAILURE WITH HYPOXIA Status: Acute (4) CAD (coronary artery disease) Code(s): I25.10 - ATHSCL HEART DISEASE OF [place] CORONARY ARTERY W/O ANG PCTRS Status: Chronic (5) Diabetes type 2, controlled Code(s): E11.9 - TYPE 2 DIABETES MELLITUS WITHOUT COMPLICATIONS Status: Chronic (6) Hypertension Code(s): I10 - ESSENTIAL (PRIMARY) HYPERTENSION Status: Chronic (7) Squamous cell lung cancer Code(s): C34.90 - MALIGNANT NEOPLASM OF UNSP PART OF UNSP BRONCHUS OR LUNG Status: Chronic (8) COPD (chronic obstructive pulmonary disease) Status: Suspected - Plan * Atrial Fibrillation- his heart rate has improved- EP evaluation noted. He is on a low dose Cardizem drip, Multaq, and Oral Metoprolol * Healthcare Associated vs. Post Obstructive Pneumonia- Continue Vancomycin and Zosyn. * COPD ( Probable)- continue duonebs, and Long acting beta-agonist * DM- blood glucose is slightly elevated- continue Actos, and SSI * HTN- blood pressure is controlled * Continue as per EP and PCCM
[2018-03-24] MEDS: Diltiazem HCl 125 MG, Admixture Fee 1 EACH in Sodium Chloride 0.9% 100 ML IVPB SCH (09:20)
[2018-03-24] MEDS: Multivitamin W/ Minerals 1 TAB PO SCH (09:21)
[2018-03-24] MEDS: Dronedarone HCl 400 MG TAB PO SCH ×2 (09:22→17:45)
[2018-03-24] MEDS: Ascorbic Acid 500 mg Chewable Tablet PO SCH (09:22)
[2018-03-24] MEDS: Pioglitazone HCl 15 MG TAB PO SCH (09:23)
[2018-03-24] MEDS: Apixaban 5 MG TAB PO SCH ×2 (09:23→20:20)
[2018-03-24] MEDS: Alogliptin 25 MG TAB PO SCH (09:23)
[2018-03-24] MEDS: Cyanocobalamin (Vitamin B-12) 1,000 MCG TAB PO SCH (09:23)
[2018-03-24] MEDS: Finasteride 5 MG TAB PO SCH (09:24)
[2018-03-24] MEDS: Digoxin 0.125 MG TAB PO SCH (09:24)
[2018-03-24] MEDS: Allopurinol 100 MG TAB PO SCH (09:24)
[2018-03-24] MEDS: Clopidogrel Bisulfate 75 MG TAB PO SCH (09:25)
[2018-03-24] MEDS: Saccharomyces boulardii 250 MG CAP PO SCH (09:25)
[2018-03-24] MEDS: guaiFENesin/DM ER PO SCH ×2 (09:25→20:20)
[2018-03-24] MEDS: Vancomycin HCl 1.25 GM in Sodium Chloride 0.9% 250 ML 250 ML IVPB SCH ×2 (09:26→16:40)
[2018-03-24] MEDS ORDERED: Digoxin 0.125 MG TAB PO ONE (09:26)
--- NOTE | 2018-03-24 13:49 | PRG ---
DATE OF SERVICE: 03/24/2018 SUBJECTIVE: He was admitted with symptoms of shortness of breath with rattling in his chest. Diagnosed squamous cell carcinoma recently at first cycle of chemotherapy. Had radiation. This morn ing, he said he is feeling somewhat better, still significant amount of rattling in his chest. OBJECTIVE: VITAL SIGNS: Sats are 95% on 4 liters, respiration 23, temperature 98, blood pressure 106/77. CHEST: Reveals extensive rhonchi and crackles. CARDIAC: Normal S1, S2, no gallops. ABDOMEN: Soft. LABORATORY DATA: White count 6000, H&H is 11 and 35, platelet count is 222. Electrolytes are normal . All cultures are negative. IMPRESSION: 1. bronchitis. 2. Squamous cell carcinoma of right lung with UNBUNDLER metastases. PLAN: Continue Zosyn, neb treatments, steroids. I see no reason to add antibiotic coverage. Nothing to suspect Staph infection at this time. Pulmonary will follow. Discussed with EP study and SVT is being treated with medication only.
[2018-03-24] MEDS ORDERED: Docusate 100 MG CAP PO PRN (19:57)
[2018-03-24] MEDS: Ezetimibe 10 MG TAB PO SCH (20:20)
[2018-03-24] MEDS: Acetaminophen 325 MG TAB PO PRN (20:20)
--- NOTE | 2018-03-24 21:49 | PRG ---
DATE OF SERVICE: 03/24/2018 SUBJECTIVE: Mr. Tobin seems to be doing slightly better today. He still has wheezing and bronch itis-like symptoms. His heart rates are slightly improved. OBJECTIVE DATA: VITAL SIGNS: Blood pressure is 106/77, heart rate 107, respirations 23, temperature 98.3 degrees Fah renheit. GENERAL: Alert and oriented man in no apparent distress. NECK: Supple. Jugular veins are distended. CHEST: Coarse without crackles. CARDIOVASCULAR: Irregularly irregular. S1, S2 is variable. No murmur or gallop. ABDOMEN: Benign. Bowel sounds positive. EXTREMITIES: Lower extremity edema. DATABASE: EKG reviewed revealing continue atrial fibrillation. No significant QT prolongation. LABORATORY DATA: White count 6.2, hemoglobin 11.3, platelet count is 222. ASSESSMENT AND PLAN: Mr. Tobin is a pleasant 77-year-old man with a history of atrial arrhythmia s, both typical atrial flutter, but also atrial fibrillation was seen on this and the prior admission . He has been anticoagulated over a month with Eliquis. He also unfortunately has chronic obstructive pulmonary disease and stage IV carcinoma on chemo therapy likely contributes to his respiratory failure . My plan would be at this point: 1. We added Multaq yesterday and I would continue this regimen after adequate loading possibly in 5 to 6 days. He could be considered for cardioversion unless he converts spontaneously. Hence he has been well anticoagulated, stroke risk is low. Monitor for additional bradycardia on digoxin, metopro lol and Multaq, in which case digoxin could be discontinued. 2. If further rapid atrial flutter seen, a CTI ablation could be considered telling me the fastest c onducting atrial flutter, but likely still we need antiarrhythmic regimen for suppression of atrial f ibrillation. He is somewhat of a limited candidate currently, his acute cancer and chemotherapy for full scale left atrial ablation procedures.
[2018-03-24 23:12] LABS: Vancomycin, Trough 25.2 ug/mL
[2018-03-25] MEDS: Vancomycin HCl 1 GM in Premix Bag 1 BAG IVPB SCH ×2 (00:05→08:51)
[2018-03-25] MEDS: Piperacillin/Tazobactam 3.375 GM in Sodium Chloride 0.9% 100 ML IVPB SCH ×2 (01:47→08:51)
[2018-03-25] MEDS: HumaLOG 300 UNITS/3 ML VIAL SC PRN ×4 (06:31→20:25)
[2018-03-25] MEDS: Budesonide 0.5 MG/2 ML NEB INH SCH ×2 (08:23→18:49)
[2018-03-25] MEDS: Arformoterol 15 MCG/2 ML NEB NEB SCH ×2 (08:28→18:49)
[2018-03-25] MEDS: Pioglitazone HCl 15 MG TAB PO SCH (08:52)
[2018-03-25] MEDS: Allopurinol 100 MG TAB PO SCH (08:52)
[2018-03-25] MEDS: Apixaban 5 MG TAB PO SCH ×2 (08:52→20:25)
[2018-03-25] MEDS: Alogliptin 25 MG TAB PO SCH (08:52)
[2018-03-25] MEDS: Digoxin 0.125 MG TAB PO SCH (08:52)
[2018-03-25] MEDS: Saccharomyces boulardii 250 MG CAP PO SCH (08:52)
[2018-03-25] MEDS: Dronedarone HCl 400 MG TAB PO SCH ×2 (08:52→17:26)
[2018-03-25] MEDS: Ascorbic Acid 500 mg Chewable Tablet PO SCH (08:52)
[2018-03-25] MEDS: Multivitamin W/ Minerals 1 TAB PO SCH (08:53)
[2018-03-25] MEDS: Clopidogrel Bisulfate 75 MG TAB PO SCH (08:53)
[2018-03-25] MEDS: Cyanocobalamin (Vitamin B-12) 1,000 MCG TAB PO SCH (08:53)
[2018-03-25] MEDS: Finasteride 5 MG TAB PO SCH (08:53)
[2018-03-25] MEDS: guaiFENesin/DM ER PO SCH ×2 (08:54→20:25)
--- NOTE | 2018-03-25 10:22 | PRG ---
DATE OF SERVICE: 03/25/2018 SUBJECTIVE: This morning, he said he is feeling better, less short of breath, less cough. OBJECTIVE: VITAL SIGNS: Sats are 90% on 3 liters, pulse 112, temperature 98. GENERAL: He is awake, alert, responsive. CHEST: Extensive rhonchi and crackles. CARDIAC: Normal S1 and S2. No gallops. ABDOMEN: Soft. No mass. IMPRESSION: 1. Squamous cell carcinoma, status post chemoradiation. 2. Atrial fibrillation. 3. Chronic obstructive pulmonary disease, no evidence of sepsis or pneumonia. PLAN: He can be transferred out of the ICU. Continue treatment with p.o. medication. We will follow.
--- NOTE | 2018-03-25 13:50 | PDOC.PN ---
- Subjective Encounter Start Date: 03/25/18 Encounter Start Time: 13:48 Subjective: Feeling better, no SOB or cehst pain, off of Cardizem - Objective Resuscitation Status: Resuscitation Status FULL:Full Resuscitation MAR Reviewed: Yes Vital Signs & Weight: Vital Signs (12 hours) Temp Pulse Resp BP Pulse Ox 03/25/18 10:40 101 H 20 96 03/25/18 08:52 97 03/25/18 08:22 112 H 20 90 L 03/25/18 07:25 97 03/25/18 07:24 98.5 F 101 H 18 120/73 96 03/25/18 04:18 97.6 F 89 17 112/62 91 L Weight Weight 195 lb I&O: 03/24/18 03/25/18 03/26/18 06:59 06:59 06:59 Intake Total 2603.6 2507.2 Output Total 2955 1075 Balance -351.4 1432.2 Result Diagrams: 03/24/18 04:14 03/24/18 04:14 Additional Labs: Accuchecks 03/25/18 03/25/18 03/24/18 10:25 05:51 20:15 POC Glucose 250 H 243 H 288 H 03/24/18 16:36 POC Glucose 210 H Phys Exam - Physical Examination HEENT: PERRLA, moist MMs, sclera anicteric, TM's clear, oral pharynx no lesions , 2+ tonsils Neck: no nodes, no JVD, supple, full ROM Respiratory: no wheezing Coarse breath sounds Cardiovascular: no significant murmur, irregular Gastrointestinal: soft, non-tender, no distention, positive bowel sounds Musculoskeletal: no edema, pulses present Neurological: non-focal, normal sensation, moves all 4 limbs Psychiatric: normal affect, A&O x 3 Dx/Plan (1) Atrial fibrillation with RVR Code(s): I48.91 - UNSPECIFIED ATRIAL FIBRILLATION Status: Acute Comment: Afib and rate controlled. Continue Metoprolol and Multaq. Weaned off of Cardizem (2) Healthcare-associated pneumonia Code(s): J18.9 - PNEUMONIA, UNSPECIFIED ORGANISM Status: Acute Comment: Continue Augmentin, Vanc, nebs and steroids (3) Squamous cell lung cancer Code(s): C34.90 - MALIGNANT NEOPLASM OF UNSP PART OF UNSP BRONCHUS OR LUNG Status: Chronic (4) COPD (chronic obstructive pulmonary disease) Status: Suspected (5) Acute respiratory failure with hypoxia Code(s): J96.01 - ACUTE RESPIRATORY FAILURE WITH HYPOXIA Status: Acute Comment: see above and NC oxygen - Plan cont current plan of care, continue antibiotics, respiratory therapy, DVT proph w/SCDs * .
[2018-03-25] MEDS: Ezetimibe 10 MG TAB PO SCH (20:25)
[2018-03-25] MEDS: Amoxicillin/Potassium Clav 875 MG TAB PO SCH (20:25)
[2018-03-25 23:33] LABS: Vancomycin, Trough 16.1 ug/mL
[2018-03-26] MEDS: Budesonide 0.5 MG/2 ML NEB INH SCH ×2 (08:08→19:05)
[2018-03-26] MEDS: Arformoterol 15 MCG/2 ML NEB NEB SCH ×2 (08:08→19:05)
[2018-03-26] MEDS: Clopidogrel Bisulfate 75 MG TAB PO SCH (08:46)
[2018-03-26] MEDS: Apixaban 5 MG TAB PO SCH ×2 (08:46→20:19)
[2018-03-26] MEDS: Saccharomyces boulardii 250 MG CAP PO SCH (08:46)
[2018-03-26] MEDS: Pioglitazone HCl 15 MG TAB PO SCH (08:46)
[2018-03-26] MEDS: Digoxin 0.125 MG TAB PO SCH (08:46)
[2018-03-26] MEDS: Alogliptin 25 MG TAB PO SCH (08:46)
[2018-03-26] MEDS: predniSONE 20 MG TAB PO SCH (08:47)
[2018-03-26] MEDS: Amoxicillin/Potassium Clav 875 MG TAB PO SCH ×2 (08:47→20:18)
[2018-03-26] MEDS: Dronedarone HCl 400 MG TAB PO SCH ×2 (08:47→17:10)
[2018-03-26] MEDS: Allopurinol 100 MG TAB PO SCH (08:47)
[2018-03-26] MEDS: Finasteride 5 MG TAB PO SCH (08:47)
[2018-03-26] MEDS: Ascorbic Acid 500 mg Chewable Tablet PO SCH (08:47)
[2018-03-26] MEDS: Cyanocobalamin (Vitamin B-12) 1,000 MCG TAB PO SCH (08:48)
[2018-03-26] MEDS: Multivitamin W/ Minerals 1 TAB PO SCH (08:48)
[2018-03-26] MEDS: guaiFENesin/DM ER PO SCH ×2 (09:04→20:20)
--- NOTE | 2018-03-26 14:36 | PDOC.PN ---
- Subjective Encounter Start Date: 03/26/18 Encounter Start Time: 10:00 Subjective: pt up in chair no complains - Objective Resuscitation Status: Resuscitation Status FULL:Full Resuscitation Vital Signs & Weight: Vital Signs (12 hours) Temp Pulse Resp BP BP Pulse Ox 03/26/18 11:32 97 28 H 96 03/26/18 11:20 98.4 F 95 22 H 111/66 92 L 03/26/18 08:46 110 H 03/26/18 08:08 96 03/26/18 08:04 110 H 22 H 95 03/26/18 07:52 93 L 03/26/18 07:24 97.7 F 95 22 H 116/64 93 L 03/26/18 04:22 97.8 F 86 21 H 118/80 90 L 03/26/18 02:58 100 20 94 L Weight Weight 200 lb 13.458 oz I&O: 03/25/18 03/26/18 03/27/18 06:59 06:59 06:59 Intake Total 2507.2 1061 Output Total 1075 820 Balance 1432.2 241 Result Diagrams: 03/24/18 04:14 03/24/18 04:14 Additional Labs: Accuchecks 03/26/18 03/26/18 03/25/18 10:41 06:07 20:02 POC Glucose 181 H 127 H 246 H 03/25/18 16:31 POC Glucose 304 H Phys Exam - Physical Examination Neck: no nodes, no JVD, supple, full ROM Respiratory: wheezing present mild Cardiovascular: RRR, no significant murmur, no rub, gallop, irregular Gastrointestinal: soft, non-tender, no distention, positive bowel sounds Musculoskeletal: no edema, pulses present, edema present Dx/Plan (1) Pneumonia Code(s): J18.9 - PNEUMONIA, UNSPECIFIED ORGANISM Status: Acute Plan: possible gram neg organism (2) Squamous cell lung cancer Code(s): C34.90 - MALIGNANT NEOPLASM OF UNSP PART OF UNSP BRONCHUS OR LUNG Status: Chronic (3) Atrial fibrillation with RVR Code(s): I48.91 - UNSPECIFIED ATRIAL FIBRILLATION Status: Acute Comment: Afib and rate controlled. Continue Metoprolol and Multaq. Weaned off of Cardizem (4) Diabetes type 2, controlled Code(s): E11.9 - TYPE 2 DIABETES MELLITUS WITHOUT COMPLICATIONS Status: Chronic - Plan pt on augmentin. -: heart rate still elevated on multaq * . Review of Systems - Review of Systems Respiratory: Cough Cardiovascular: negative: chest pain, palpitations, orthopnea, paroxysmal nocturnal dyspnea, edema, light headedness, other Gastrointestinal: negative: Nausea, Vomiting, Abdominal Pain, Diarrhea, Constipation, Melena, Hematochezia, Other Genitourinary: negative: Dysuria, Frequency, Incontinence, Hematuria, Retention , Other Musculoskeletal: negative: Neck Pain, Shoulder Pain, Arm Pain, Back Pain, Hand Pain, Leg Pain, Foot Pain, Other - Medications/Allergies Allergies/Adverse Reactions: Allergies Allergy/AdvReac Type Severity Reaction Status Date / Time No Known Allergies Allergy Verified 02/14/18 22:36 Medications: Current Medications Acetaminophen (Tylenol) 650 mg PO Q4H PRN PRN Reason: Headache/Fever/Mild Pain (1-3) Last Admin: 03/24/18 20:20 Dose: 650 mg Albuterol/Ipratropium (Duoneb) 3 ml EZPAP [id number] [facility] Last Admin: 03/26/18 11:32 Dose: 3 ml Allopurinol (Zyloprim) 100 mg PO DAILY [facility] Last Admin: 03/26/18 08:47 Dose: 100 mg Alogliptin Benzoate (Alogliptin) 25 mg PO DAILY [facility] Last Admin: 03/26/18 08:46 Dose: 25 mg Amoxicillin/Clavulanate Potassium (Augmentin) 875 mg PO Q12HR [facility] Last Admin: 03/26/18 08:47 Dose: 875 mg Apixaban (Eliquis) 5 mg PO BID [facility] Last Admin: 03/26/18 08:46 Dose: 5 mg Arformoterol Tartrate (Brovana) 15 mcg NEB BID-RT [facility] Last Admin: 03/26/18 08:08 Dose: 15 mcg Ascorbic Acid (Vitamin C) 1,000 mg PO DAILY [facility] Last Admin: 03/26/18 08:47 Dose: 1,000 mg Budesonide (Pulmicort Neb Solution) 0.5 mg INH BID-RT [facility] Last Admin: 03/26/18 08:08 Dose: 0.5 mg Clopidogrel Bisulfate (Plavix) 37.5 mg PO DAILY [facility] Last Admin: 11/23/18 08:46 Dose: 37.5 mg Cyanocobalamin (Vitamin B-12) 500 mcg PO DAILY [facility] Last Admin: 03/26/18 08:48 Dose: 500 mcg Dextrose/Water (Dextrose 50%) 25 gm SLOW IVP PRN PRN PRN Reason: Hypoglycemia Digoxin (Lanoxin) 0.125 mg PO QAM [facility] Last Admin: 03/26/18 08:46 Dose: 0.125 mg Docusate Sodium (Colace) 200 mg PO BIDPRN PRN PRN Reason: CONSTIPATION Last Admin: 03/24/18 20:24 Dose: 200 mg Dronedarone (Multaq) 400 mg PO BID-WM [facility] Last Admin: 03/26/18 08:47 Dose: 400 mg Ezetimibe (Zetia) 10 mg PO HS [facility] Last Admin: 03/25/18 20:25 Dose: 10 mg Finasteride (Proscar) 5 mg PO DAILY [facility] Last Admin: 03/26/18 08:47 Dose: 5 mg Glucagon (Glucagon) 1 mg IM PRN PRN PRN Reason: Hypoglycemia Guaifenesin/Dextromethorphan (Robitussin Dm) 15 ml PO Q4H PRN PRN Reason: Cough Last Admin: 03/22/18 22:08 Dose: 15 ml Guaifenesin/Dextromethorphan (Mucinex Dm) 1 tab PO Q12HR [facility] Last Admin: 03/26/18 09:04 Dose: 1 tab Dextrose/Water (D5w) 1,000 mls @ 0 mls/hr IV .Q0M PRN PRN Reason: Hypoglycemia Diltiazem HCl 125 mg/Miscellaneous Medication 1 each/ Sodium Chloride 125 mls @ 2.5 mls/hr IVPB INF [facility]; Protocol Last Admin: 03/24/18 09:20 Dose: 125 mls Insulin Human Lispro (Humalog) 0 units SC .MODERATE SLIDING SC PRN PRN Reason: Moderate Correctional Scale Last Admin: 03/25/18 17:27 Dose: 8 unit Insulin Human Lispro (Humalog) 0 units SC .BEDTIME SLIDING SC PRN PRN Reason: Bedtime Correctional Scale Last Admin: 03/25/18 20:25 Dose: 2 unit Iron/Minerals/Multivitamins (Theragran M) 1 tab PO DAILY [facility] Last Admin: 03/26/18 08:48 Dose: 1 tab Metoprolol Succinate (Toprol Xl) 25 mg PO DAILY [facility] Last Admin: 03/26/18 08:48 Dose: 25 mg Miscellaneous Medication (Pharmacy To Dose) 1 each PO ONE PRN PRN Reason: DOSING Stop: 04/21/18 20:20 Nitroglycerin (Nitrostat) 0.4 mg SL PRN PRN PRN Reason: CHEST PAIN Pantoprazole Sodium (Protonix) 40 mg PO DAILY [facility] Last Admin: 03/26/18 08:48 Dose: 40 mg Non-Formulary Item 1 Each (Icosapent Ethyl [Vascepa] 2 Gm ) 2 each PO BID [facility] Pioglitazone HCl (Actos) 15 mg PO DAILY [facility] Last Admin: 03/26/18 08:46 Dose: 15 mg Prednisone (Prednisone) 40 mg PO QA-[facility] Last Admin: 03/26/18 08:47 Dose: 40 mg Saccharomyces Boulardii (Florastor) 250 mg PO DAILY [facility] Last Admin: 03/26/18 08:46 Dose: 250 mg Sodium Chloride (Flush - Normal Saline) 10 ml IVF Q12HR [facility] Last Admin: 03/26/18 08:49 Dose: 10 ml Sodium Chloride (Flush - Normal Saline) 10 ml IVF PRN PRN PRN Reason: Saline Flush
[2018-03-26] MEDS: HumaLOG 300 UNITS/3 ML VIAL SC PRN ×2 (17:11→20:25)
--- NOTE | 2018-03-26 18:00 | PRG ---
DATE OF SERVICE: 03/26/2018 SUBJECTIVE: Crista is evaluated. OBJECTIVE: GENERAL: He is in no distress. VITAL SIGNS: He is afebrile, heart rate is 71, respiratory rate is 20, oximetry is 97% on 4 liter ca nnula. Blood pressure 121/69. LUNGS: Remarkable for faint wheezes. HEART: Regular rhythm. ABDOMEN: Soft and nontender. EXTREMITIES: Without clubbing, cyanosis or edema. IMPRESSION: 1. Chronic obstructive pulmonary disease. 2. Atrial fibrillation. 3. Squamous cell carcinoma, status post chemoradiation. PLAN: Continue with current respiratory care, anticoagulation, antibiotics, prednisone.
[2018-03-26] MEDS: Ezetimibe 10 MG TAB PO SCH (20:19)
[2018-03-27] MEDS: Acetaminophen 325 MG TAB PO PRN (03:23)
[2018-03-27] MEDS: Arformoterol 15 MCG/2 ML NEB NEB SCH ×2 (06:42→20:05)
[2018-03-27] MEDS: Budesonide 0.5 MG/2 ML NEB INH SCH ×2 (06:42→20:05)
[2018-03-27] MEDS: Cyanocobalamin (Vitamin B-12) 1,000 MCG TAB PO SCH (08:53)
[2018-03-27] MEDS: Ascorbic Acid 500 mg Chewable Tablet PO SCH (08:53)
[2018-03-27] MEDS: Allopurinol 100 MG TAB PO SCH (08:53)
[2018-03-27] MEDS: Finasteride 5 MG TAB PO SCH (08:54)
[2018-03-27] MEDS: Multivitamin W/ Minerals 1 TAB PO SCH (08:54)
[2018-03-27] MEDS: Clopidogrel Bisulfate 75 MG TAB PO SCH (08:54)
[2018-03-27] MEDS: Alogliptin 25 MG TAB PO SCH (08:56)
[2018-03-27] MEDS: predniSONE 20 MG TAB PO SCH (08:56)
[2018-03-27] MEDS: Saccharomyces boulardii 250 MG CAP PO SCH (08:56)
[2018-03-27] MEDS: Digoxin 0.125 MG TAB PO SCH (08:56)
[2018-03-27] MEDS: Apixaban 5 MG TAB PO SCH ×2 (08:56→21:16)
[2018-03-27] MEDS: Pioglitazone HCl 15 MG TAB PO SCH (08:56)
[2018-03-27] MEDS: Amoxicillin/Potassium Clav 875 MG TAB PO SCH ×2 (08:57→21:16)
[2018-03-27] MEDS: Dronedarone HCl 400 MG TAB PO SCH ×2 (08:57→17:44)
[2018-03-27] MEDS: guaiFENesin/DM ER PO SCH ×2 (09:11→21:16)
--- NOTE | 2018-03-27 12:44 | PDOC.PN ---
- Subjective Encounter Start Date: 03/27/18 Encounter Start Time: 11:15 Subjective: pt up in chair no complains - Objective Resuscitation Status: Resuscitation Status FULL:Full Resuscitation Vital Signs & Weight: Vital Signs (12 hours) Temp Pulse Resp BP Pulse Ox 03/27/18 08:56 97 03/27/18 08:03 94 L 03/27/18 07:54 97.5 F L 97 22 H 140/86 95 03/27/18 06:43 97 03/27/18 06:41 105 H 20 91 L 03/27/18 03:45 97.6 F 102 H 20 124/82 96 Weight Weight 199 lb 4.8 oz I&O: 03/26/18 03/27/18 03/28/18 06:59 06:59 06:59 Intake Total 1061 1460 Output Total 820 1280 Balance 241 180 Result Diagrams: 03/24/18 04:14 03/24/18 04:14 Additional Labs: Accuchecks 03/27/18 03/26/18 03/26/18 05:51 20:15 17:04 POC Glucose 132 H 260 H 298 H Phys Exam - Physical Examination Neck: no nodes, no JVD, supple, full ROM Respiratory: wheezing present mild rhonchi all over Cardiovascular: RRR, no significant murmur, no rub, gallop, irregular Gastrointestinal: soft, non-tender, no distention, positive bowel sounds Dx/Plan (1) Pneumonia Code(s): J18.9 - PNEUMONIA, UNSPECIFIED ORGANISM Status: Acute (2) Squamous cell lung cancer Code(s): C34.90 - MALIGNANT NEOPLASM OF UNSP PART OF UNSP BRONCHUS OR LUNG Status: Chronic (3) Atrial fibrillation with RVR Code(s): I48.91 - UNSPECIFIED ATRIAL FIBRILLATION Status: Acute Comment: Afib and rate controlled. Continue Metoprolol and Multaq. Weaned off of Cardizem (4) Diabetes type 2, controlled Code(s): E11.9 - TYPE 2 DIABETES MELLITUS WITHOUT COMPLICATIONS Status: Chronic - Plan pt states he feels better today -: sill gets tachycardic on ambulation -: pt is on multaq/dig and bb -: will increase his bb to 50mg daily * . Review of Systems - Review of Systems Respiratory: Cough, Shortness of Breath Cardiovascular: negative: chest pain, palpitations, orthopnea, paroxysmal nocturnal dyspnea, edema, light headedness, other Gastrointestinal: negative: Nausea, Vomiting, Abdominal Pain, Diarrhea, Constipation, Melena, Hematochezia, Other - Medications/Allergies Allergies/Adverse Reactions: Allergies Allergy/AdvReac Type Severity Reaction Status Date / Time No Known Allergies Allergy Verified 02/14/18 22:36 Medications: Current Medications Acetaminophen (Tylenol) 650 mg PO Q4H PRN PRN Reason: Headache/Fever/Mild Pain (1-3) Last Admin: 03/27/18 03:23 Dose: 650 mg Albuterol/Ipratropium (Duoneb) 3 ml EZPAP [id number] [facility] Last Admin: 03/27/18 12:06 Dose: Not Given Allopurinol (Zyloprim) 100 mg PO DAILY [facility] Last Admin: 03/27/18 08:53 Dose: 100 mg Alogliptin Benzoate (Alogliptin) 25 mg PO DAILY [facility] Last Admin: 03/27/18 08:56 Dose: 25 mg Amoxicillin/Clavulanate Potassium (Augmentin) 875 mg PO Q12HR [facility] Last Admin: 03/27/18 08:57 Dose: 875 mg Apixaban (Eliquis) 5 mg PO BID [facility] Last Admin: 03/27/18 08:56 Dose: 5 mg Arformoterol Tartrate (Brovana) 15 mcg NEB BID-RT [facility] Last Admin: 03/27/18 06:42 Dose: 15 mcg Ascorbic Acid (Vitamin C) 1,000 mg PO DAILY [facility] Last Admin: 03/27/18 08:53 Dose: 1,000 mg Budesonide (Pulmicort Neb Solution) 0.5 mg INH BID-RT [facility] Last Admin: 03/27/18 06:42 Dose: 0.5 mg Clopidogrel Bisulfate (Plavix) 37.5 mg PO DAILY [facility] Last Admin: 03/27/18 08:54 Dose: 37.5 mg Cyanocobalamin (Vitamin B-12) 500 mcg PO DAILY [facility] Last Admin: 03/27/18 08:53 Dose: 500 mcg Dextrose/Water (Dextrose 50%) 25 gm SLOW IVP PRN PRN PRN Reason: Hypoglycemia Digoxin (Lanoxin) 0.125 mg PO QAM [facility] Last Admin: 03/27/18 08:56 Dose: 0.125 mg Docusate Sodium (Colace) 200 mg PO BIDPRN PRN PRN Reason: CONSTIPATION Last Admin: 03/24/18 20:24 Dose: 200 mg Dronedarone (Multaq) 400 mg PO BID-[facility] Last Admin: 03/27/18 08:57 Dose: 400 mg Ezetimibe (Zetia) 10 mg PO HS [facility] Last Admin: 03/26/18 20:19 Dose: 10 mg Finasteride (Proscar) 5 mg PO DAILY [facility] Last Admin: 03/27/18 08:54 Dose: 5 mg Glucagon (Glucagon) 1 mg IM PRN PRN PRN Reason: Hypoglycemia Guaifenesin/Dextromethorphan (Robitussin Dm) 15 ml PO Q4H PRN PRN Reason: Cough Last Admin: 03/22/18 22:08 Dose: 15 ml Guaifenesin/Dextromethorphan (Mucinex Dm) 1 tab PO Q12HR [facility] Last Admin: 03/27/18 09:11 Dose: 1 tab Dextrose/Water (D5w) 1,000 mls @ 0 mls/hr IV .Q0M PRN PRN Reason: Hypoglycemia Diltiazem HCl 125 mg/Miscellaneous Medication 1 each/ Sodium Chloride 125 mls @ 2.5 mls/hr IVPB INF [facility]; Protocol Last Admin: 03/24/18 09:20 Dose: 125 mls Insulin Human Lispro (Humalog) 0 units SC .MODERATE SLIDING SC PRN PRN Reason: Moderate Correctional Scale Last Admin: 03/26/18 17:11 Dose: 6 unit Insulin Human Lispro (Humalog) 0 units SC .BEDTIME SLIDING SC PRN PRN Reason: Bedtime Correctional Scale Last Admin: 03/26/18 20:25 Dose: 3 unit Iron/Minerals/Multivitamins (Theragran M) 1 tab PO DAILY [facility] Last Admin: 03/27/18 08:54 Dose: 1 tab Metoprolol Succinate (Toprol Xl) 25 mg PO DAILY [facility] Last Admin: 03/27/18 08:54 Dose: 25 mg Miscellaneous Medication (Pharmacy To Dose) 1 each PO ONE PRN PRN Reason: DOSING Stop: 04/21/18 20:20 Nitroglycerin (Nitrostat) 0.4 mg SL PRN PRN PRN Reason: CHEST PAIN Pantoprazole Sodium (Protonix) 40 mg PO DAILY [facility] Last Admin: 03/27/18 08:54 Dose: 40 mg Non-Formulary Item 1 Each (Icosapent Ethyl [Vascepa] 2 Gm ) 2 each PO BID [facility] Pioglitazone HCl (Actos) 15 mg PO DAILY [facility] Last Admin: 03/27/18 08:56 Dose: 15 mg Prednisone (Prednisone) 40 mg PO QAM-WM [facility] Last Admin: 03/27/18 08:56 Dose: 40 mg Saccharomyces Boulardii (Florastor) 250 mg PO DAILY [facility] Last Admin: 03/27/18 08:56 Dose: 250 mg Sodium Chloride (Flush - Normal Saline) 10 ml IVF Q12HR [facility] Last Admin: 03/27/18 08:57 Dose: 10 ml Sodium Chloride (Flush - Normal Saline) 10 ml IVF PRN PRN PRN Reason: Saline Flush
--- NOTE | 2018-03-27 14:10 | PRG ---
DATE OF SERVICE: 03/27/2018 SUBJECTIVE: Duglas uGrrola says he is feeling 100% better. He has been transferred out of the [facility] rmediate Care Unit. OBJECTIVE: VITAL SIGNS: He is afebrile, heart rate is 97, respiratory rate is 22, oximetry is 95% on 4 liters, blood pressure 140/86. LUNGS: Still remarkable for crackles in both lung bases and faint wheezes. HEART: Regular rhythm. ABDOMEN: Soft. EXTREMITIES: Without edema. IMPRESSION: 1. Chronic obstructive pulmonary disease exacerbation. 2. Lung cancer. 3. Bronchitis. 4. Atrial fibrillation. He appears to be stable to move out of the Intermediate Care Unit. We will continue to follow.
[2018-03-27] MEDS: Ezetimibe 10 MG TAB PO SCH (21:16)
[2018-03-28] MEDS: Arformoterol 15 MCG/2 ML NEB NEB SCH ×2 (08:06→19:42)
[2018-03-28] MEDS: Budesonide 0.5 MG/2 ML NEB INH SCH ×2 (08:07→19:43)
[2018-03-28] MEDS ORDERED: Furosemide 40 MG/4 ML VIAL SLOW IVP SCH (10:30)
[2018-03-28] MEDS: Allopurinol 100 MG TAB PO SCH (10:58)
[2018-03-28] MEDS: Finasteride 5 MG TAB PO SCH (10:59)
[2018-03-28] MEDS: predniSONE 20 MG TAB PO SCH (10:59)
[2018-03-28] MEDS: Clopidogrel Bisulfate 75 MG TAB PO SCH (10:59)
[2018-03-28] MEDS: Amoxicillin/Potassium Clav 875 MG TAB PO SCH ×2 (11:00→20:58)
[2018-03-28] MEDS: Saccharomyces boulardii 250 MG CAP PO SCH (11:00)
[2018-03-28] MEDS: Alogliptin 25 MG TAB PO SCH (11:01)
[2018-03-28] MEDS: Dronedarone HCl 400 MG TAB PO SCH ×2 (11:01→17:38)
[2018-03-28] MEDS: Pioglitazone HCl 15 MG TAB PO SCH (11:01)
[2018-03-28] MEDS: Digoxin 0.125 MG TAB PO SCH (11:02)
[2018-03-28] MEDS: guaiFENesin/DM ER PO SCH ×2 (11:02→20:57)
[2018-03-28] MEDS: Apixaban 5 MG TAB PO SCH ×2 (11:02→20:57)
[2018-03-28] MEDS: Ascorbic Acid 500 mg Chewable Tablet PO SCH (11:02)
[2018-03-28] MEDS: Cyanocobalamin (Vitamin B-12) 1,000 MCG TAB PO SCH (11:03)
[2018-03-28] MEDS: Multivitamin W/ Minerals 1 TAB PO SCH (11:06)
[2018-03-28] MEDS: HumaLOG 300 UNITS/3 ML VIAL SC PRN ×2 (11:36→17:38)
--- NOTE | 2018-03-28 15:17 | PDOC.PN ---
- Subjective Encounter Start Date: 03/28/18 Encounter Start Time: 10:30 Subjective: pt up in bed feels well - Objective Resuscitation Status: Resuscitation Status FULL:Full Resuscitation Vital Signs & Weight: Vital Signs (12 hours) Temp Pulse Resp BP Pulse Ox 03/28/18 11:24 108 H 24 H 03/28/18 11:02 99 03/28/18 09:35 98.1 F 99 18 132/70 95 03/28/18 08:07 91 L 03/28/18 08:03 98 20 91 L 03/28/18 04:20 98.5 F 87 18 135/74 94 L 03/28/18 03:45 95 Weight Weight 204 lb 4 oz I&O: 03/27/18 03/28/18 03/29/18 06:59 06:59 06:59 Intake Total 1460 600 Output Total 1280 1775 Balance 180 -1175 Result Diagrams: 03/24/18 04:14 03/24/18 04:14 Additional Labs: Accuchecks 03/28/18 03/28/18 03/27/18 10:29 06:08 20:53 POC Glucose 201 H 125 H 204 H 03/27/18 16:54 POC Glucose 256 H Phys Exam - Physical Examination Neck: no nodes, no JVD, supple, full ROM mild rhonchi all over Cardiovascular: RRR, no significant murmur, no rub, gallop, irregular Gastrointestinal: soft, non-tender, no distention, positive bowel sounds Dx/Plan (1) Pneumonia Code(s): J18.9 - PNEUMONIA, UNSPECIFIED ORGANISM Status: Acute (2) Squamous cell lung cancer Code(s): C34.90 - MALIGNANT NEOPLASM OF UNSP PART OF UNSP BRONCHUS OR LUNG Status: Chronic (3) Atrial fibrillation with RVR Code(s): I48.91 - UNSPECIFIED ATRIAL FIBRILLATION Status: Acute Comment: Afib and rate controlled. Continue Metoprolol and Multaq. Weaned off of Cardizem (4) Diabetes type 2, controlled Code(s): E11.9 - TYPE 2 DIABETES MELLITUS WITHOUT COMPLICATIONS Status: Chronic - Plan will give him one dose of lasix now -: will increase his metoprolol and check dig level in am -: will ambulate pt to make sure he does not get tachycardiac * . Review of Systems - Review of Systems ENT: negative: Ear Pain, Ear Discharge, Nose Pain, Nose Discharge, Nose Congestion, Mouth Pain, Mouth Swelling, Throat Pain, Throat Swelling, Other Respiratory: negative: Cough, Dry, Shortness of Breath, Hemoptysis, SOB with Excertion, Pleuritic Pain, Sputum, Wheezing Cardiovascular: negative: chest pain, palpitations, orthopnea, paroxysmal nocturnal dyspnea, edema, light headedness, other Gastrointestinal: negative: Nausea, Vomiting, Abdominal Pain, Diarrhea, Constipation, Melena, Hematochezia, Other - Medications/Allergies Allergies/Adverse Reactions: Allergies Allergy/AdvReac Type Severity Reaction Status Date / Time No Known Allergies Allergy Verified 02/14/18 22:36 Medications: Current Medications Acetaminophen (Tylenol) 650 mg PO Q4H PRN PRN Reason: Headache/Fever/Mild Pain (1-3) Last Admin: 03/27/18 03:23 Dose: 650 mg Albuterol/Ipratropium (Duoneb) 3 ml EZPAP [id number] [facility] Last Admin: 03/28/18 11:24 Dose: 3 ml Allopurinol (Zyloprim) 100 mg PO DAILY [facility] Last Admin: 03/28/18 10:58 Dose: 100 mg Alogliptin Benzoate (Alogliptin) 25 mg PO DAILY [facility] Last Admin: 03/28/18 11:01 Dose: 25 mg Amoxicillin/Clavulanate Potassium (Augmentin) 875 mg PO Q12HR [facility] Last Admin: 03/28/18 11:00 Dose: 875 mg Apixaban (Eliquis) 5 mg PO BID [facility] Last Admin: 03/28/18 11:02 Dose: 5 mg Arformoterol Tartrate (Brovana) 15 mcg NEB BID-RT [facility] Last Admin: 03/28/18 08:06 Dose: 15 mcg Ascorbic Acid (Vitamin C) 1,000 mg PO DAILY [facility] Last Admin: 03/28/18 11:02 Dose: 1,000 mg Budesonide (Pulmicort Neb Solution) 0.5 mg INH BID-RT [facility] Last Admin: 03/28/18 08:07 Dose: 0.5 mg Clopidogrel Bisulfate (Plavix) 37.5 mg PO DAILY [facility] Last Admin: 03/28/18 10:59 Dose: 37.5 mg Cyanocobalamin (Vitamin B-12) 500 mcg PO DAILY [facility] Last Admin: 03/28/18 11:03 Dose: 500 mcg Dextrose/Water (Dextrose 50%) 25 gm SLOW IVP PRN PRN PRN Reason: Hypoglycemia Digoxin (Lanoxin) 0.125 mg PO QAM [facility] Last Admin: 03/28/18 11:02 Dose: 0.125 mg Docusate Sodium (Colace) 200 mg PO BIDPRN PRN PRN Reason: CONSTIPATION Last Admin: 03/24/18 20:24 Dose: 200 mg Dronedarone (Multaq) 400 mg PO BID-WM [facility] Last Admin: 03/28/18 11:01 Dose: 400 mg Ezetimibe (Zetia) 10 mg PO HS [facility] Last Admin: 03/27/18 21:16 Dose: 10 mg Finasteride (Proscar) 5 mg PO DAILY [facility] Last Admin: 03/28/18 10:59 Dose: 5 mg Glucagon (Glucagon) 1 mg IM PRN PRN PRN Reason: Hypoglycemia Guaifenesin/Dextromethorphan (Robitussin Dm) 15 ml PO Q4H PRN PRN Reason: Cough Last Admin: 03/22/18 22:08 Dose: 15 ml Guaifenesin/Dextromethorphan (Mucinex Dm) 1 tab PO Q12HR [facility] Last Admin: 03/28/18 11:02 Dose: 1 tab Dextrose/Water (D5w) 1,000 mls @ 0 mls/hr IV .Q0M PRN PRN Reason: Hypoglycemia Diltiazem HCl 125 mg/Miscellaneous Medication 1 each/ Sodium Chloride 125 mls @ 2.5 mls/hr IVPB INF [facility]; Protocol Last Admin: 03/24/18 09:20 Dose: 125 mls Insulin Human Lispro (Humalog) 0 units SC .MODERATE SLIDING SC PRN PRN Reason: Moderate Correctional Scale Last Admin: 03/28/18 11:36 Dose: 4 unit Insulin Human Lispro (Humalog) 0 units SC .BEDTIME SLIDING SC PRN PRN Reason: Bedtime Correctional Scale Last Admin: 03/26/18 20:25 Dose: 3 unit Iron/Minerals/Multivitamins (Theragran M) 1 tab PO DAILY [facility] Last Admin: 03/28/18 11:06 Dose: 1 tab Metoprolol Succinate (Toprol Xl) 50 mg PO DAILY [facility] Last Admin: 03/28/18 11:03 Dose: 50 mg Miscellaneous Medication (Pharmacy To Dose) 1 each PO ONE PRN PRN Reason: DOSING Stop: 04/21/18 20:20 Nitroglycerin (Nitrostat) 0.4 mg SL PRN PRN PRN Reason: CHEST PAIN Pantoprazole Sodium (Protonix) 40 mg PO DAILY [facility] Last Admin: 03/28/18 11:00 Dose: 40 mg Pioglitazone HCl (Actos) 15 mg PO DAILY [facility] Last Admin: 03/28/18 11:01 Dose: 15 mg Prednisone (Prednisone) 40 mg PO [facility] Stop: 03/30/18 08:00 Last Admin: 03/28/18 10:59 Dose: 40 mg Saccharomyces Boulardii (Florastor) 250 mg PO DAILY [facility] Last Admin: 03/28/18 11:00 Dose: 250 mg Sodium Chloride (Flush - Normal Saline) 10 ml IVF Q12HR [facility] Last Admin: 03/28/18 11:05 Dose: 10 ml Sodium Chloride (Flush - Normal Saline) 10 ml IVF PRN PRN PRN Reason: Saline Flush
[2018-03-28] MEDS: Ezetimibe 10 MG TAB PO SCH (20:57)
--- NOTE | 2018-03-28 21:36 | PRG ---
DATE OF SERVICE: 03/28/2018 SUBJECTIVE: Mr. Tobin says he continues to feel better. OBJECTIVE: VITAL SIGNS: Afebrile, heart rate 72, respiratory rate 16, oximetry is 94% on room air, blood pressu re 107/64. LUNGS: Remarkable for mild wheezes bilaterally. HEART: Regular rhythm. ABDOMEN: Soft. EXTREMITIES: Without clubbing, cyanosis, or edema. IMPRESSION: 1. Obstructive pulmonary disease exacerbation. 2. Lung cancer. 3. Bronchitis. 4. Atrial fibrillation. PLAN: Continue current care.
--- NOTE | 2018-03-28 22:23 | EKG ---
Test Reason : Blood Pressure : / mmHG Vent. Rate : 086 BPM Atrial Rate : 357 BPM P-R Int : 000 ms QRS Dur : 086 ms QT Int : 178 ms P-R-T Axes : 000 007 144 degrees QTc Int : 213 ms Atrial fibrillation Low voltage QRS Possible Inferior infarct , age undetermined Abnormal ECG When compared with ECG of 14-FEB-2018 18:47, Borderline criteria for Inferior infarct are now Present Nonspecific T wave abnormality now evident in Inferior leads Nonspecific T wave abnormality, worse in Lateral leads Confirmed by MICHELET IRIZARRY (2) on 03/28/2018 10:22:35 PM Referred By: SEBASTIAN Confirmed By:MICHELET IRIZARRY
[2018-03-29] MEDS: Budesonide 0.5 MG/2 ML NEB INH SCH ×2 (07:26→18:49)
[2018-03-29] MEDS: Arformoterol 15 MCG/2 ML NEB NEB SCH ×2 (07:27→18:46)
--- NOTE | 2018-03-29 08:21 | PRG ---
DATE OF SERVICE: 03/29/2018 This morning he is doing better, he is less short of breath, less coughing, less wheezing. PHYSICAL EXAMINATION: VITAL SIGNS: Sats 95 on 2 liters, temperature is 98, blood pressure 120/72, pulse 79. CHEST: Chest reveals decreased breath sounds, no wheezing. CARDIAC: Normal S1, S2. No gallops. ABDOMEN: Soft. IMPRESSION: 1. Respiratory failure. 2. Lung cancer. 3. Supraventricular tachycardia. PLAN: Once cardiac status is improved she can be discharged home. Follow with Oncology and Dr. Maciel in the office.
[2018-03-29] MEDS: Clopidogrel Bisulfate 75 MG TAB PO SCH (09:07)
[2018-03-29] MEDS: Apixaban 5 MG TAB PO SCH ×2 (09:07→20:23)
[2018-03-29] MEDS: guaiFENesin/DM ER PO SCH ×2 (09:07→20:23)
[2018-03-29] MEDS: Dronedarone HCl 400 MG TAB PO SCH ×2 (09:07→17:49)
[2018-03-29] MEDS: Allopurinol 100 MG TAB PO SCH (09:08)
[2018-03-29] MEDS: Multivitamin W/ Minerals 1 TAB PO SCH (09:08)
[2018-03-29] MEDS: Alogliptin 25 MG TAB PO SCH (09:08)
[2018-03-29] MEDS: Finasteride 5 MG TAB PO SCH (09:08)
[2018-03-29] MEDS: Ascorbic Acid 500 mg Chewable Tablet PO SCH (09:08)
[2018-03-29] MEDS: Pioglitazone HCl 15 MG TAB PO SCH (09:10)
[2018-03-29] MEDS: Amoxicillin/Potassium Clav 875 MG TAB PO SCH ×2 (09:10→20:23)
[2018-03-29] MEDS: predniSONE 20 MG TAB PO SCH (09:10)
[2018-03-29] MEDS: Digoxin 0.125 MG TAB PO SCH (09:10)
[2018-03-29] MEDS: Cyanocobalamin (Vitamin B-12) 1,000 MCG TAB PO SCH (09:10)
[2018-03-29 10:37] LABS: Digoxin 0.31 ng/mL (0.8-2.0)
[2018-03-29] MEDS: Saccharomyces boulardii 250 MG CAP PO SCH (12:08)
[2018-03-29] MEDS: HumaLOG 300 UNITS/3 ML VIAL SC PRN ×2 (12:33→19:04)
--- NOTE | 2018-03-29 18:30 | PDOC.PN ---
- Subjective Encounter Start Date: 03/29/18 Encounter Start Time: 09:15 Subjective: pt up in chair feels much better today - Objective Resuscitation Status: Resuscitation Status FULL:Full Resuscitation Vital Signs & Weight: Vital Signs (12 hours) Temp Pulse Resp BP BP Pulse Ox 03/29/18 16:38 98.1 F 79 18 109/64 92 L 03/29/18 14:04 94 20 93 L 03/29/18 12:00 98.5 F 85 18 120/92 H 93 L 03/29/18 10:31 91 20 92 L 03/29/18 09:10 86 98 03/29/18 07:45 98.2 F 86 16 140/78 98 03/29/18 07:24 79 18 95 Weight Weight 200 lb 4 oz I&O: 03/28/18 03/29/18 03/30/18 06:59 06:59 06:59 Intake Total 600 1640 Output Total 1775 2325 Balance -3841 -168 Result Diagrams: 03/24/18 04:14 03/24/18 04:14 Additional Labs: Accuchecks 03/29/18 03/29/18 03/29/18 16:48 10:48 06:05 POC Glucose 261 H 225 H 131 H 03/28/18 20:59 POC Glucose 254 H Phys Exam - Physical Examination Neck: no nodes, no JVD, supple, full ROM mild rhonchi all over Cardiovascular: RRR, no significant murmur, no rub, gallop, irregular Gastrointestinal: soft, non-tender, no distention, positive bowel sounds Dx/Plan (1) Pneumonia Code(s): J18.9 - PNEUMONIA, UNSPECIFIED ORGANISM Status: Acute (2) Squamous cell lung cancer Code(s): C34.90 - MALIGNANT NEOPLASM OF UNSP PART OF UNSP BRONCHUS OR LUNG Status: Chronic (3) Atrial fibrillation with RVR Code(s): I48.91 - UNSPECIFIED ATRIAL FIBRILLATION Status: Acute Comment: Afib and rate controlled. Continue Metoprolol and Multaq. Weaned off of Cardizem (4) Diabetes type 2, controlled Code(s): E11.9 - TYPE 2 DIABETES MELLITUS WITHOUT COMPLICATIONS Status: Chronic - Plan pt has been off oxygen but still gets tachycardiac on ambulation -: pt going for ablation in am * . Review of Systems - Review of Systems Respiratory: negative: Cough, Dry, Shortness of Breath, Hemoptysis, SOB with Excertion, Pleuritic Pain, Sputum, Wheezing Cardiovascular: negative: chest pain, palpitations, orthopnea, paroxysmal nocturnal dyspnea, edema, light headedness, other Gastrointestinal: negative: Nausea, Vomiting, Abdominal Pain, Diarrhea, Constipation, Melena, Hematochezia, Other - Medications/Allergies Allergies/Adverse Reactions: Allergies Allergy/AdvReac Type Severity Reaction Status Date / Time No Known Allergies Allergy Verified 02/14/18 22:36 Medications: Current Medications Acetaminophen (Tylenol) 650 mg PO Q4H PRN PRN Reason: Headache/Fever/Mild Pain (1-3) Last Admin: 03/27/18 03:23 Dose: 650 mg Albuterol/Ipratropium (Duoneb) 3 ml EZPAP I1CV-CH [facility] Last Admin: 03/29/18 14:04 Dose: 3 ml Allopurinol (Zyloprim) 100 mg PO DAILY [facility] Last Admin: 03/29/18 09:08 Dose: 100 mg Alogliptin Benzoate (Alogliptin) 25 mg PO DAILY [facility] Last Admin: 03/29/18 09:08 Dose: 25 mg Amoxicillin/Clavulanate Potassium (Augmentin) 875 mg PO Q12HR [facility] Last Admin: 03/29/18 09:10 Dose: 875 mg Apixaban (Eliquis) 5 mg PO BID [facility] Stop: 03/29/18 23:00 Last Admin: 03/29/18 09:07 Dose: 5 mg Arformoterol Tartrate (Brovana) 15 mcg NEB BID-RT [facility] Last Admin: 03/29/18 07:27 Dose: 15 mcg Ascorbic Acid (Vitamin C) 1,000 mg PO DAILY [facility] Last Admin: 03/29/18 09:08 Dose: 1,000 mg Budesonide (Pulmicort Neb Solution) 0.5 mg INH BID-RT [facility] Last Admin: 03/29/18 07:26 Dose: 0.5 mg Clopidogrel Bisulfate (Plavix) 37.5 mg PO DAILY [facility] Last Admin: 03/29/18 09:07 Dose: 37.5 mg Cyanocobalamin (Vitamin B-12) 500 mcg PO DAILY [facility] Last Admin: 03/29/18 09:10 Dose: 500 mcg Dextrose/Water (Dextrose 50%) 25 gm SLOW IVP PRN PRN PRN Reason: Hypoglycemia Digoxin (Lanoxin) 0.125 mg PO QAM [facility] Last Admin: 03/29/18 09:10 Dose: 0.125 mg Docusate Sodium (Colace) 200 mg PO BIDPRN PRN PRN Reason: CONSTIPATION Last Admin: 03/24/18 20:24 Dose: 200 mg Dronedarone (Multaq) 400 mg PO BID-WM [facility] Last Admin: 03/29/18 17:49 Dose: 400 mg Ezetimibe (Zetia) 10 mg PO HS [facility] Last Admin: 03/28/18 20:57 Dose: 10 mg Finasteride (Proscar) 5 mg PO DAILY [facility] Last Admin: 03/29/18 09:08 Dose: 5 mg Glucagon (Glucagon) 1 mg IM PRN PRN PRN Reason: Hypoglycemia Guaifenesin/Dextromethorphan (Robitussin Dm) 15 ml PO Q4H PRN PRN Reason: Cough Last Admin: 03/22/18 22:08 Dose: 15 ml Guaifenesin/Dextromethorphan (Mucinex Dm) 1 tab PO Q12HR [facility] Last Admin: 03/29/18 09:07 Dose: 1 tab Dextrose/Water (D5w) 1,000 mls @ 0 mls/hr IV .Q0M PRN PRN Reason: Hypoglycemia Diltiazem HCl 125 mg/Miscellaneous Medication 1 each/ Sodium Chloride 125 mls @ 2.5 mls/hr IVPB INF [facility]; Protocol Last Admin: 03/24/18 09:20 Dose: 125 mls Insulin Human Lispro (Humalog) 0 units SC .MODERATE SLIDING SC PRN PRN Reason: Moderate Correctional Scale Last Admin: 03/29/18 12:33 Dose: 4 unit Insulin Human Lispro (Humalog) 0 units SC .BEDTIME SLIDING SC PRN PRN Reason: Bedtime Correctional Scale Last Admin: 03/26/18 20:25 Dose: 3 unit Iron/Minerals/Multivitamins (Theragran M) 1 tab PO DAILY [facility] Last Admin: 03/29/18 09:08 Dose: 1 tab Metoprolol Succinate (Toprol Xl) 75 mg PO DAILY [facility] Last Admin: 03/29/18 09:08 Dose: 75 mg Miscellaneous Medication (Pharmacy To Dose) 1 each PO ONE PRN PRN Reason: DOSING Stop: 04/21/18 20:20 Nitroglycerin (Nitrostat) 0.4 mg SL PRN PRN PRN Reason: CHEST PAIN Pantoprazole Sodium (Protonix) 40 mg PO DAILY [facility] Last Admin: 03/29/18 09:08 Dose: 40 mg Pioglitazone HCl (Actos) 15 mg PO DAILY [facility] Last Admin: 03/29/18 09:10 Dose: 15 mg Prednisone (Prednisone) 40 mg PO QA-[facility] Stop: 03/30/18 08:00 Last Admin: 03/29/18 09:10 Dose: 40 mg Saccharomyces Boulardii (Florastor) 250 mg PO DAILY [facility] Last Admin: 03/29/18 12:08 Dose: 250 mg Sodium Chloride (Flush - Normal Saline) 10 ml IVF Q12HR [facility] Last Admin: 03/29/18 09:11 Dose: 10 ml Sodium Chloride (Flush - Normal Saline) 10 ml IVF PRN PRN PRN Reason: Saline Flush
--- NOTE | 2018-03-29 19:22 | EKG ---
Test Reason : Blood Pressure : / mmHG Vent. Rate : 103 BPM Atrial Rate : 094 BPM P-R Int : 000 ms QRS Dur : 088 ms QT Int : 362 ms P-R-T Axes : 000 -02 -44 degrees QTc Int : 474 ms Atrial fibrillation with rapid ventricular response Low voltage QRS Possible Inferior infarct (cited on or before 22-MAR-2018) Abnormal ECG When compared with ECG of 26-MAR-2018 06:58, Nonspecific T wave abnormality, improved in Anterolateral leads QT has lengthened Confirmed by CHRISTEL NAVARRO, SRoxane ([id number]) on 03/29/2018 7:22:14 PM Referred By: SHMUEL Confirmed By:DR. Christiano KEARNEY MD
--- NOTE | 2018-03-29 19:34 | PRG ---
DATE OF SERVICE: 03/29/2018 SUBJECTIVE: Mr. Tobin seems to be doing much better over the holiday and weekend, he is continued to improve. Current respiration is more controlled and his coughing is also much better. OBJECTIVE: VITAL SIGNS: Blood pressure 120/92, heart rate 85, respirations 18, temperature 98.5 degrees Fahrenheit, oxygen saturation is 93% on room air. GENERAL: Alert and oriented man, in no apparent distress. NECK: Supple. Jugular veins are not distended. CHEST: Coarse without crackles. CARDIOVASCULAR: Heart sounds are regular to rate and rhythm. No murmur or gallop. ABDOMEN: Benign. Bowel sounds positive. EXTREMITIES: No edema, clubbing or cyanosis. DATABASE: The EKG is reviewed revealing continued atrial fibrillation. ASSESSMENT AND PLAN: Mr. Tobin is a pleasant 77-year-old man with prior history of both typical atrial flutter/fibrillation. He unfortunately also has advanced stage lung cancer and possibility of bronchitis exacerbation caused his coronary admission. On admission, he had atrial flutter typical appearing which was very difficult rate control. We placed him on Multaq, but atrial fibrillation still continues. We discussed future treatment options with him and his . He has been anticoagulated with Eliquis and it would be reasonable to consider converting him back to sinus rhythm. On the other hand, it is also consideration to ablate his cavotricuspid isthmus to eliminate the atrial flutter circuit which clearly drove his heart rates the highest. Even though after he might still require antiarrhythmic medication suppresses his left atrial circuits but his rate control will be more easy if atrial fibrillation recurs. They understand and willing to proceed. We will schedule him for tomorrow. We will hold his Eliquis in the morning. MARILY
[2018-03-29] MEDS: Ezetimibe 10 MG TAB PO SCH (20:23)
--- NOTE | 2018-03-29 23:04 | CON ---
DATE OF CONSULTATION: 03/24/2018 (Dictated later on 03/29/2018 due to problems with [employer]) REASON FOR CONSULTATION: Metastatic lung cancer. HISTORY OF PRESENT ILLNESS: A 77-year-old male with history of metastatic lung cancer presenting with shortness of breath and cough. States that shortness of breath has been worsening over the last few days along with cough productive of yellow and green sputum. He denies any fevers at home, nausea, vomiting, diarrhea or constipation. The patient was evaluated in the ER and chest x-ray showed possible infiltrate consistent with pneumonia as well as atrial fibrillation with rapid ventricular response. Atrial fibrillation was found on a different admission and there were plans of ablation, but this was not performed. 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 REVIEW OF SYSTEMS: Ten-point review of systems negative except as per HPI. PAST MEDICAL HISTORY: Stage IV lung cancer, CAD, diabetes, BPH, hyperlipidemia , hypertension, atrial fibrillation. PAST SURGICAL HISTORY: MediPort placement. ALLERGIES: No known drug allergies. FAMILY HISTORY: Unknown to patient. SOCIAL HISTORY: , former smoker, quit in 2005. CURRENT MEDICATIONS: Reviewed. PHYSICAL EXAMINATION: VITAL SIGNS: Pulse 82, respirations 18, satting 92% on 3-1/2 liters by nasal cannula, blood pressure 106/64, temperature 98.5. GENERAL: The patient lying in bed in no acute distress. Well-developed and well-nourished. HEENT: Pupils are equally round and reactive. Sclerae are anicteric. NECK: No adenopathy. Supple. LUNGS: Diffuse rhonchi, without wheezing or rales. CARDIOVASCULAR: Regular rhythm and rate, tachycardic with 2/6 systolic ejection murmur. ABDOMEN: Soft, nondistended, nontender, and obese. EXTREMITIES: Trace peripheral edema, no rash. NEUROLOGIC: Cranial nerves II-XII grossly intact. Moves all extremities. PSYCHIATRIC: Awake, alert and oriented x3. IMAGING DATA: Chest x-ray dated 03/22/2018 shows prominent opacity at the mid inferior right chest which is nonspecific. Component of pleural fluid with underlying mass or consolidation it produces radiographic imaging appearance. LABORATORY DATA: White blood cells 6.4, hemoglobin 11.3, platelets 222, neutrophils 88.9%. Sodium 137, potassium 3.9, chloride 101, CO2 of 29, BUN 11, creatinine 0.76, glucose 195, calcium 8.7. 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 The patient is currently well oxygenated on nasal cannula and improving with IV antibiotics. The patient was started on a Cardizem drip upon admission to the hospital. The patient has no current signs of chemotherapy or immunotherapy induced toxicities and is not neutropenic. Recommend Cardiology evaluation and possible ablation as this previously planned and continue antibiotics for pneumonia. We will follow this patient peripherally. Please call with questions. Thank you for this consult. MARILY
[2018-03-30 06:37] LABS: ALT (SGPT) 16 U/L (8-55); AST (SGOT) 88 U/L (5-34); Albumin 2.8 g/dL (3.4-4.8); Alkaline Phosphatase 62 U/L (40-150); Anion Gap 9 mmol/L (10-20); BUN (Urea Nitrogen) 14 mg/dL (8.4-25.7); Bilirubin, Total 0.5 mg/dL (0.2-1.2); Calc. Creatinine Clearance 98 mL/min (70-130); Calcium 8.4 mg/dL (7.8-10.44); Carbon Dioxide 30 mmol/L (23-31); Chloride 102 mmol/L (98-107); Estimated GFR-MDRD Greater than 90; Glucose 131 mg/dL (83-110); Potassium 3.2 mmol/L (3.5-5.1); Protein, Total 4.8 g/dL (5.8-8.1); Sodium 138 mmol/L (136-145)
[2018-03-30 06:53] LABS: Band 2 % (5-11); Eosinophils 2 % (0-10); Hemoglobin 11.3 g/dL (14.0-18.0); Lymphocytes 44 % (21-51); MDiff Complete? YES; Mean Corpuscular Hemoglobin 29.7 pg (27.0-31.0); Mean Corpuscular Volume 90.2 fL (78.0-98.0); Mean Platelet Volume 7.7 fL (7.4-10.4); Monocytes 19 % (0-10); Neutrophil 31 % (42-75); Platelet Count 178 thou/uL (130-400); RBC Distribution Width 13.4 % (11.5-14.5); Reactive Lymphocytes 2 % (0-10)
[2018-03-30] MEDS: Arformoterol 15 MCG/2 ML NEB NEB SCH ×2 (07:28→19:35)
[2018-03-30] MEDS: Budesonide 0.5 MG/2 ML NEB INH SCH ×2 (07:28→19:34)
--- NOTE | 2018-03-30 09:21 | PRG ---
DATE OF SERVICE: 03/30/2018 This morning he is doing better, less shortness of breath and cough as per the . PHYSICAL EXAMINATION: VITAL SIGNS: His sats are 95 on room air, temperature 98, pulse 92, respiration 16, blood pressure 1 90/58. CHEST: Chest revealed decreased breath sounds with bilateral rhonchi. CARDIAC: Normal S1, S2, no gallops. ABDOMEN: Soft. No masses. IMPRESSION: 1. Squamous cell carcinoma, status post chemotherapy. 2. Atrial fibrillation. PLAN: EP is going to try and convert him to sinus rhythm tomorrow. Pulmonary-melendez, continue antibio tics, supportive care. I will follow.
[2018-03-30] MEDS ORDERED: Lidocaine 1% (PF) 30 ML VIAL ONE (09:40)
[2018-03-30] MEDS ORDERED: Heparin 10,000 UNITS/1 ML VIAL ONE (09:40)
[2018-03-30] MEDS ORDERED: Fentanyl 100 MCG/2 ML VIAL ONE (10:53)
[2018-03-30] MEDS ORDERED: Midazolam HCl 2 mg/2 ml Vial ONE ×2 (10:53→11:17)
[2018-03-30] MEDS ORDERED: Potassium Chloride 20 MEQ/100 ML PREMIX BAG ONE (11:13)
[2018-03-30] MEDS ORDERED: DOPamine 400 MG/D5W 250 ML 250 ML ONE (12:04)
--- NOTE | 2018-03-30 12:36 | OP ---
DATE OF PROCEDURE: 03/30/2018 SURGEON: Dr. Evelio Domingo PROCEDURE: Electrophysiology study and radiofrequency ablation. REFERRING PHYSICIAN: Dr. Limon and Dr. Ruben Soni REASON FOR PROCEDURE: Mr. Tobin is a 77-year-old man with prior history of atrial flutter which eventually converted to atrial fibrillation. During atrial flutter he had 2:1 AV conduction very rapid, difficult to control ventricular rates, which are high, symptomatic. His atrial fibrillation was easier to control. Concomitantly he was found to have an advanced metastatic lung cancer. He is willing to undergo chemotherapy for. He is readmitted for atrial flutter episodes, here for ablation of the cavotricuspid isthmus. The patient has been well anticoagulated with Eliquis, which was had only today. PROCEDURE: The patient received Versed and fentanyl, propofol by Anesthesia specialist for deep sedation. After adequate level of sedation achieved the right femoral vein area was prepped, draped and anesthetized using subcutaneous lidocaine. With ultrasound guidance, two 8-Armenian short sheath was introduced, through with this ThermoCool SF ST catheter was advanced to the right atrium. Pacing mapping and report according performed in each location. His bundle cloud and CS was also delineated. The RV was also accessed. Following that a Decapolar CS catheter advanced to the CS position. At this point, obvious atrial fibrillation present at baseline and cardioversion was performed. The following findings were noted. Baseline cycle length 12 milliseconds, QT 308. The HV 48 milliseconds. The sinus node recovery time was 1333 milliseconds corrected to 621 milliseconds. AV Wenckebach segment was 390 milliseconds, retrograde Wenckebach cycle length was 440 milliseconds. Concentric retrograde VA conduction was seen. Atrial extrastimuli testing was performed, yielding AV itzel ERP at 600/300 milliseconds. Dual AV itzel physiology was present, but no arrhythmia was induced. At this point, burst atrial pacing was performed which did not reinduce arrhythmia. He had the typical isthmus-dependent atrial flutter morphology on the EKGs, performed a cavotricuspid isthmus ablation. With proximal CS pacing cavotricuspid isthmus ablation was performed achieving 120 milliseconds delay from proximal CS to lateral to the line. In the annular area the Trans isthmus delay was up to 150 milliseconds. Trans-isthmus block was demonstrated with longest trans-isthmus time measured by the ablation line. The total of 8 minutes and 26 seconds ablation performed without any lesions delivered. At 40 nichols with impedances ranged between 97-139 ohms. At this point, we attempted to re-induce the atrial flutter, but it was not successful. Dopamine was administered and again no arrhythmias were induced and the cavotricuspid isthmus block was rechecked and reconnections were were reablated. CONCLUSION: 1. Baseline atrial fibrillation, cardioverted. 2. Status post cavotricuspid isthmus ablation with adequate cavotricuspid block achieved. 3. Atrial fibrillation, still inducible at the end of the case. Continue Multaq therapy and resume Eliquis anticoagulation. MTDD
[2018-03-30] MEDS ORDERED: Promethazine HCl 25 MG/ML VIAL SLOW IVP PRN (12:47)
[2018-03-30] MEDS ORDERED: Promethazine HCl 25 MG/ML VIAL IM PRN (12:47)
[2018-03-30] MEDS ORDERED: Ondansetron HCl/PF 4 MG/2 ML Vial IVP PRN (12:47)
[2018-03-30] MEDS ORDERED: Acetaminophen/Codeine 30-300mg Tablet PO PRN ×2 (14:00)
[2018-03-30] MEDS: Digoxin 0.125 MG TAB PO SCH (14:26)
[2018-03-30] MEDS: Dronedarone HCl 400 MG TAB PO SCH ×2 (14:26→18:08)
[2018-03-30] MEDS: Clopidogrel Bisulfate 75 MG TAB PO SCH (14:34)
[2018-03-30] MEDS: Saccharomyces boulardii 250 MG CAP PO SCH (14:34)
[2018-03-30] MEDS: Ascorbic Acid 500 mg Chewable Tablet PO SCH (14:34)
[2018-03-30] MEDS: Alogliptin 25 MG TAB PO SCH (14:35)
[2018-03-30] MEDS: Amoxicillin/Potassium Clav 875 MG TAB PO SCH ×2 (14:35→20:12)
[2018-03-30] MEDS: Cyanocobalamin (Vitamin B-12) 1,000 MCG TAB PO SCH (14:35)
[2018-03-30] MEDS: Pioglitazone HCl 15 MG TAB PO SCH (14:36)
[2018-03-30] MEDS: Multivitamin W/ Minerals 1 TAB PO SCH (14:36)
[2018-03-30] MEDS: Finasteride 5 MG TAB PO SCH (14:36)
[2018-03-30] MEDS: Allopurinol 100 MG TAB PO SCH (14:36)
[2018-03-30] MEDS: guaiFENesin/DM ER PO SCH ×2 (14:53→20:13)
[2018-03-30] MEDS: Guaifenesin DM 100-10/5 ML UDCUP PO PRN ×2 (14:53→20:14)
[2018-03-30] MEDS: predniSONE 20 MG TAB PO SCH (15:37)
[2018-03-30] MEDS ORDERED: PHENYLEPHRINE-NS 100 MCG/ML 10 ML SYRINGE ONE (16:39)
[2018-03-30] MEDS ORDERED: PROPOFOL 200 MG/20 ML VIAL ONE (16:39)
--- NOTE | 2018-03-30 17:21 | EKG ---
Test Reason : POST ABLATION Blood Pressure : / mmHG Vent. Rate : 079 BPM Atrial Rate : 079 BPM P-R Int : 166 ms QRS Dur : 084 ms QT Int : 390 ms P-R-T Axes : 075 -11 072 degrees QTc Int : 447 ms Normal sinus rhythm Low voltage QRS RSR' or QR pattern in V1 suggests right ventricular conduction delay Possible Inferior infarct (cited on or before 22-MAR-2018) Abnormal ECG When compared with ECG of 29-MAR-2018 09:34, Sinus rhythm has replaced Atrial fibrillation Non-specific change in ST segment in Anterior leads Confirmed by CHRISTEL NAVARRO, DR. Alvarado ([id number]) on 03/30/2018 5:21:07 PM Referred By: [facility] Confirmed By:DR. Christiano KEARNEY MD
[2018-03-30] MEDS: Acetaminophen 325 MG TAB PO PRN (18:08)
[2018-03-30] MEDS: Ezetimibe 10 MG TAB PO SCH ×2 (20:12→20:14)
[2018-03-31] MEDS: Budesonide 0.5 MG/2 ML NEB INH SCH (07:24)
[2018-03-31] MEDS: Arformoterol 15 MCG/2 ML NEB NEB SCH (07:24)
--- NOTE | 2018-03-31 08:31 | PDOC.PN ---
- Subjective Encounter Start Date: 03/30/18 - Objective Resuscitation Status - Order Detail: 03/30/18 12:40 Resuscitation Status Routine Resuscitation Status: FULL: Full Resuscitation Discussed with: per previous order Vital Signs & Weight: Vital Signs (12 hours) Temp Pulse Resp BP Pulse Ox 03/31/18 07:26 94 L 03/31/18 07:23 89 20 94 L 03/31/18 04:00 98.3 F 77 17 107/63 92 L 03/31/18 02:29 74 18 94 L 03/31/18 00:00 98.1 F 78 20 105/55 L 94 L 03/30/18 23:48 77 18 93 L Weight Weight 197 lb 1.6 oz I&O: 03/30/18 03/31/18 04/01/18 06:59 06:59 06:59 Intake Total 400 510 Output Total 2325 1005 Balance -1925 -379 Result Diagrams: 03/30/18 05:49 03/30/18 05:49 Additional Labs: Accuchecks 03/31/18 03/30/18 03/30/18 06:18 23:30 17:01 POC Glucose 161 H 238 H 151 H Dx/Plan (1) Pneumonia Code(s): J18.9 - PNEUMONIA, UNSPECIFIED ORGANISM Status: Acute (2) Squamous cell lung cancer Code(s): C34.90 - MALIGNANT NEOPLASM OF UNSP PART OF UNSP BRONCHUS OR LUNG Status: Chronic (3) Atrial fibrillation with RVR Code(s): I48.91 - UNSPECIFIED ATRIAL FIBRILLATION Status: Acute Comment: Afib and rate controlled. Continue Metoprolol and Multaq. Weaned off of Cardizem (4) Diabetes type 2, controlled Code(s): E11.9 - TYPE 2 DIABETES MELLITUS WITHOUT COMPLICATIONS Status: Chronic - Plan * .
[2018-03-31] MEDS: Ascorbic Acid 500 mg Chewable Tablet PO SCH (09:35)
[2018-03-31] MEDS: Digoxin 0.125 MG TAB PO SCH (09:35)
[2018-03-31] MEDS: Dronedarone HCl 400 MG TAB PO SCH (09:35)
[2018-03-31] MEDS: Finasteride 5 MG TAB PO SCH (09:35)
[2018-03-31] MEDS: Multivitamin W/ Minerals 1 TAB PO SCH (09:36)
[2018-03-31] MEDS: Alogliptin 25 MG TAB PO SCH (09:36)
[2018-03-31] MEDS: Allopurinol 100 MG TAB PO SCH (09:36)
[2018-03-31] MEDS: Cyanocobalamin (Vitamin B-12) 1,000 MCG TAB PO SCH (09:36)
[2018-03-31] MEDS: Amoxicillin/Potassium Clav 875 MG TAB PO SCH (09:36)
[2018-03-31] MEDS: Pioglitazone HCl 15 MG TAB PO SCH (09:37)
[2018-03-31] MEDS: Clopidogrel Bisulfate 75 MG TAB PO SCH (09:37)
[2018-03-31] MEDS: guaiFENesin/DM ER PO SCH (09:44)
[2018-03-31] MEDS: Saccharomyces boulardii 250 MG CAP PO SCH (11:49)
[2018-03-31] MEDS: HumaLOG 300 UNITS/3 ML VIAL SC PRN (11:49)
--- NOTE | 2018-03-31 11:53 | PRG ---
DATE OF SERVICE: 03/31/2018 SUBJECTIVE: This morning is better, still coughing and wheezing. Sputum is relatively pale yellow. OBJECTIVE: VITAL SIGNS: His temperature is 98, blood pressure is 140/80, saturations 94% on room air, respirations 20, pulse 86. CHEST: Bilateral rhonchi without any wheezing. CARDIAC: Normal S1 and S2. No gallops. ABD soft IMP 1. bronchitis. 2. Squamous cell carcinoma, status post ablation for svt. PLAN: 1. The patient to be discharged home. Follow up with primary care physician and Oncology. See Dr. Maciel as needed. 2. He already has a nebulizer and Symbicort inhaler at home. Job ID: [id number] MTDD
[2018-03-31 12:59] VITALS: BP 113/69; TEMP 98.4
--- NOTE | 2018-03-31 16:17 | PDOC.CTH ---
Cardiology Progress Note - Subjective EP progress note: Patient seen and evaluated. No new cardiac concerns or complaints today. Denies heart racing, palpitations, chest pain/pressure, dizziness, or passing out. No stroke like symptoms. Doing well since ablation yesterday. No atrial flutter seen. SR over HS, back in atrial fibrillation this AM but is rate controlled. - Objective Vital Signs Temp Pulse Resp BP BP Pulse Ox 03/31/18 12:00 98.4 F 79 14 113/69 93 L 03/31/18 10:42 86 20 03/31/18 09:35 89 03/31/18 08:00 97.8 F 81 16 145/79 H 94 L 03/31/18 07:26 94 L 03/31/18 07:23 89 20 94 L Weight 197 lb 1.6 oz 03/30/18 03/31/18 04/01/18 06:59 06:59 06:59 Intake Total 400 510 Output Total 2325 1005 Balance -6245 -495 - Physical Examination General/Neuro: alert & oriented x3, NAD Neck: carotid US brisk, no JVD present Lungs: CTA, unlabored respirations Heart: PMI normal Abdomen: NT/ND, soft - Telemetry Telemetry Rhythm: A Fib - Labs Result Diagrams: 03/30/18 05:49 03/30/18 05:49 Troponin/CKMB CK-MB (CK-2) 0.9 ng/mL (0-6.6) 03/22/18 10:55 Troponin I 0.026 ng/mL (< 0.028) 03/22/18 14:55 - Assessment/Plan 1. Atrial arrhythmias - Typical atrial flutter s/p CTI ablation - atrial fibrillation, rate controlled on Multaq 2. Metastatic lung cancer 3. Anticoagulation with Eliquis 5mg BID Continue Eliquis and multaq. If remains in AF despite multaq, will consider alt agent. Follow up in clinic in 6 weeks for routine post ablation care. OK for DC by EP
--- NOTE | 2018-04-01 14:30 | DIS ---
DATE OF ADMISSION: 03/22/2018 DATE OF DISCHARGE: 03/31/2018 DISCHARGE DIAGNOSES: 1. Pneumonia most likely community acquired. 2. Squamous cell cancer of the lung. 3. Atrial fibrillation with rapid ventricular response, status post ablation. 4. Diabetes. HOSPITAL COURSE: The patient is a very pleasant 77-year-old male, who initially presented to the hospital with complaints of shortness or breath. Given his recent diagnosis of cancer, the patient has been receiving chemotherapy. The patient has been having productive cough. He was treated for most likely community-acquired pneumonia. The patient's symptoms continued to improve. However on admission, he was also found to be in AFib with rapid ventricular response. At this time, Electrophysiology was consulted, the patient was put on antiarrhythmic drugs, which was Multaq, however, continued to have tachycardia on movement. At this time, the patient was taken by Dr. Domingo for an ablation. He is status post ablation on 03/30/2018. The patient is currently sinus rhythm. We will continue the Eliquis 5 mg b.i.d. DISCHARGE MEDICATIONS: The patient's medications are going to be as of the following; 1. Augmentin 875 b.i.d. 2. Multaq 400 mg b.i.d. 3. Ipratropium 0.2 t.i.d. p.r.n. 4. Florastor 250 mg daily. 5. Allopurinol 100 mg daily. 6. Tradjenta 5 mg daily. 7. Metoprolol 25 mg daily. 8. Dulera 2 puffs b.i.d. 9. Protonix mg daily. 10. Actos 15 mg daily. 11. Digoxin 0.125 mg daily. 12. He is on simvastatin and ezetimibe 1 tablet p.o. at bedtime. 13. Vitamin B12 daily. 14. Eliquis 5 mg b.i.d. 15. Clopidogrel 75 mg daily. Again, the patient will be discharged home. Follow up with primary care doctor. PHYSICAL EXAMINATION: VITAL SIGNS: Temperature of 98.4, pulse 79, respiratory rate 14, sats 93% on room, and blood pressure 113/69. GENERAL: He is awake, alert, and oriented x3. Does not appear in any distress. CV: S1 and S2 present. No murmurs, rubs, or gallops. Sinus rhythm. LUNGS: Mild bronchi all over. ABDOMEN: Soft and nontender. Bowel sounds are present x2. EXTREMITIES: No edema. Pedal pulses are present x2. The patient's does have a nebulizer at home. I have prescribed the patient some ipratropium, which states that it does help him, I have prescribed it for him. He will be using the patient's 's nebulizer to get his breathing treatments. Again, he will follow with EP, Cardiology, Pulmonology, and his primary care doctor. Job ID: [id number]
== END 2018-03-31 12:50 | disposition home health service (06) | DRG 273 ==
LOC: SCSER 10:22 → IMCU/EMU 16:43 → 2NO 03-27 13:11
PROVIDERS: ADMIT Internal Medicine; ATTEND Internal Medicine
PROC: 02583ZZ Destruction of Conduction Mechanism, Percutaneous Approach (ICD-10-PCS; principal; 2018-03-30)
DX: I48.92 Unspecified atrial flutter (principal); J96.01 Acute respiratory failure with hypoxia; J18.9 Pneumonia, unspecified organism; C34.90 Malignant neoplasm of unspecified part of unspecified bronchus or lung; J44.1 Chronic obstructive pulmonary disease with (acute) exacerbation; I47.1 Supraventricular tachycardia; I25.10 Atherosclerotic heart disease of native coronary artery without angina pectoris; E11.9 Type 2 diabetes mellitus without complications; N40.0 Benign prostatic hyperplasia without lower urinary tract symptoms; E78.5 Hyperlipidemia, unspecified; I10 Essential (primary) hypertension; Z87.891 Personal history of nicotine dependence; Z95.1 Presence of aortocoronary bypass graft; Y95 Nosocomial condition; Z79.82 Long term (current) use of aspirin; Z79.02 Long term (current) use of antithrombotics/antiplatelets; Z79.01 Long term (current) use of anticoagulants; Z79.899 Other long term (current) drug therapy; Z79.84 Long term (current) use of oral hypoglycemic drugs
CPT/HCPCS: 36415; 36416; 71045; 76942; 80048; 80053; 80162; 80202; 81003; 81015; 82553; 83605; 84443; 84484; 85025; 87040; 87070; 87205; 87804; 92960; 93005; 93010; 93306; 93613; 93623; 93653; 94640; 96361; 96365; 96375; 96376; C1730; C1769; J1265; J1642; J1644; J1940; J2001; J2250; J2543; J2704; J2920; J3010; J3370; J3480; J7050; J7506; J7620; J7626

== ENCOUNTER 2018-05-06 11:18 | Outpatient (CLI) | payer MEDICARE ==
--- NOTE | 2018-05-06 16:55 | PET ---
RADIONUCLIDE PET SCAN WITH CT ATTENUATION CORRECTION: HISTORY: Right upper lobe lung cancer with metastasis. Restaging. COMPARISON: 02/25/18. FINDINGS: Physiologic uptake of radiotracer throughout the hepatic parenchyma and along each urinary tract. Upt serjio associated with the right upper lobe cancer now shows maximum SUV of 1.7 (previously 3.5). Adenop athy about the mediastinum is much less bulky. At the right hilum, maximum SUV is now 3.2 (previously 7.3). Maximum SUV associated with a precarinal lymph node is 2.7 (previously 9.6). Right pleural fluid has increased since the prior study with compressive atelectasis at the right bas e. The point of maximum SUV is now centered within the compressive atelectasis and consolidation, and is 4.9 (previously 16.1). No new distant areas of increased uptake are apparent. The area of concern at the T3 vertebral body s hows no focal abnormality on the current exam. No abnormal uptake at the left neck base. IMPRESSION: 1. Significant improvement with residual activity of the right lung masses and mediastinal adenopath y as detailed above. No new hypermetabolic abnormalities. 2. New right pleural effusion. POS: [facility]
== END 2018-05-06 11:19 | disposition home or self-care (01) ==
LOC: PET 11:18
PROVIDERS: ATTEND Internal Medicine Hematology & Oncology
DX: C34.90 Malignant neoplasm of unspecified part of unspecified bronchus or lung (principal); R91.8 Other nonspecific abnormal finding of lung field; R59.0 Localized enlarged lymph nodes; J90 Pleural effusion, not elsewhere classified
CPT/HCPCS: 78815; A9552

== ENCOUNTER 2018-06-02 08:25 | Emergency (ER) | payer MEDICARE ==
[2018-06-02 09:21] LABS: ALT (SGPT) 8 U/L (8-55); AST (SGOT) 121 U/L (5-34); Alkaline Phosphatase 83 U/L (40-150); Anion Gap 18 mmol/L (10-20); BUN (Urea Nitrogen) 9 mg/dL (8.4-25.7); Bilirubin, Total 0.6 mg/dL (0.2-1.2); Calc. Creatinine Clearance 0 mL/min (70-130); Calcium 9.1 mg/dL (7.8-10.44); Carbon Dioxide 20 mmol/L (23-31); Chloride 96 mmol/L (98-107); Estimated GFR-MDRD Greater than 90; Globulin 2.5 g/dL (2.4-3.5); Glucose 116 mg/dL (83-110); Protein, Total 6.5 g/dL (5.8-8.1); Sodium 130 mmol/L (136-145)
[2018-06-02 09:38] LABS: Hemoglobin 10.5 g/dL (14.0-18.0); Lymphocytes 82 % (21-51); MDiff Complete? YES; Mean Corpuscular HGB CONC 33.5 g/dL (32.0-36.0); Mean Corpuscular Hemoglobin 30.1 pg (27.0-31.0); Mean Corpuscular Volume 89.8 fL (78.0-98.0); Mean Platelet Volume 10.2 fL (7.4-10.4); Metamyelocyte 2 % (0-0); Monocytes 8 % (0-10); Neutrophil 2 % (42-75); Platelet Count 49 thou/uL (130-400); Platelet Morphology Comment Appears Decreased; Polychromasia SLIGHT = 2-3 cells (100X) (0-2/hpf); RBC Distribution Width 17.1 % (11.5-14.5); Reactive Lymphocytes 6 % (0-10)
--- NOTE | 2018-06-02 09:57 | CT ---
HEAD CT WITHOUT CONTRAST: Date: 06/02/18 HISTORY: Trauma. Lung cancer. Recent chemo. Weakness. Multiple falls. COMPARISON: None. FINDINGS: No parenchymal hemorrhage. No extra-axial hematoma. No midline shift. Basilar cisterns are patent. Ag e-appropriate atrophy. Cortical mendoza-white matter differentiation preserved. Ventricles and sulci are patent and symmetric. White matter hypodensities due to chronic small vessel ischemic change. Calvar ium is intact. Adequate aeration of the sinuses and mastoid air cells. Cavernous carotid atherosclero sis. Atherosclerosis of the intracranial and vertebral arteries. IMPRESSION: No acute intracranial process. If there is still concern, further evaluation with pre and postcontra st brain MRI is recommended. POS: [facility]
[2018-06-02 10:52] LABS: Bilirubin Negative (Negative); Blood, Urine Negative (Negative); Clarity CLEAR (Clear); Glucose, Urine (Dipstick) Negative (Negative); Leukocyte Negative (Negative); Nitrite Negative (Negative); Protein, Urine (Dipstick) Negative (Neg-Trace); Specific Gravity, Urine 1.008 (1.002-1.036); Urobilinogen 0.2 mg/dL (0.2-1.0); pH, Urine 6.5 (5.0-9.0)
--- NOTE | 2018-06-02 10:55 | RAD ---
RADIOGRAPH LUMBAR SPINE 3 VIEWS: DATE: 06/02/2018. HISTORY: A 78-year-old male with low back pain, and bilateral lower extremity weakness and hypesthesia. Lumba r radiculopathy. COMPARISON: None available. FINDINGS: There are 5 lumbar-type vertebrae. Vertebral body heights are maintained. Small end plate marginal osteophytes at some of the levels. Minimal degenerative retrolisthesis of L2 on L3. Mild disk space narrowing at T12-L1 and L5-S1. The other disk spaces are maintained. No spondylolisthesis. IMPRESSION: 1. Mild lumbar spondylosis. 2. No compression fracture, and no major pathology identified. FREDDIE [] POS: [facility]
== END 2018-06-02 14:00 | disposition home or self-care (01) ==
LOC: ERS 08:25
DX: R53.1 Weakness (principal); R29.6 Repeated falls; C34.90 Malignant neoplasm of unspecified part of unspecified bronchus or lung; D70.9 Neutropenia, unspecified; I25.10 Atherosclerotic heart disease of native coronary artery without angina pectoris; E11.9 Type 2 diabetes mellitus without complications; N40.0 Benign prostatic hyperplasia without lower urinary tract symptoms; E78.5 Hyperlipidemia, unspecified; I10 Essential (primary) hypertension; M10.9 Gout, unspecified; Z87.891 Personal history of nicotine dependence; Z79.899 Other long term (current) drug therapy; Z79.84 Long term (current) use of oral hypoglycemic drugs
CPT/HCPCS: 70450; 72100; 80053; 81003; 84484; 85025; 93005; 96360

== ENCOUNTER 2018-06-10 09:58 | Inpatient (IN) | payer MEDICARE ==
[2018-06-10 11:12] LABS: ALT (SGPT) Less than 7 U/L (8-55); AST (SGOT) 118 U/L (5-34); Albumin 3.5 g/dL (3.4-4.8); Alkaline Phosphatase 64 U/L (40-150); Anion Gap 15 mmol/L (10-20); BUN (Urea Nitrogen) 10 mg/dL (8.4-25.7); Bilirubin, Total 0.4 mg/dL (0.2-1.2); CK (CPK) 82 U/L (30-200); Calc. Creatinine Clearance 0 mL/min (70-130); Calcium 8.7 mg/dL (7.8-10.44); Carbon Dioxide 21 mmol/L (23-31); Chloride 99 mmol/L (98-107); Estimated GFR-MDRD Greater than 90; Globulin 2.4 g/dL (2.4-3.5); Glucose 99 mg/dL (83-110); Potassium 3.6 mmol/L (3.5-5.1); Protein, Total 5.9 g/dL (5.8-8.1); Sodium 131 mmol/L (136-145)
[2018-06-10 11:19] LABS: #Monocytes 0.7 thou/uL (0.11-0.59); %Basophils 0.5 % (0.0-1.0); %Eosinophils 0.3 % (0.0-10.0); %Lymphocytes 17.3 % (21.0-51.0); %Monocytes 12.1 % (0.0-10.0); %Neutrophils 69.7 % (42.0-75.0); Hemoglobin 9.9 g/dL (14.0-18.0); Mean Corpuscular HGB CONC 32.9 g/dL (32.0-36.0); Mean Corpuscular Volume 94.1 fL (78.0-98.0); Mean Platelet Volume 7.8 fL (7.4-10.4); Platelet Count 201 thou/uL (130-400); RBC Distribution Width 18.7 % (11.5-14.5); Red Blood Cell (RBC) Count 3.19 mill/uL (4.70-6.10); White Blood Cell (WBC) Count 5.8 thou/uL (4.8-10.8)
--- NOTE | 2018-06-10 11:21 | RAD ---
CHEST 1 VIEW: Date: 06/10/18 HISTORY: Chest pain. Weakness. COMPARISON: Chest radiograph dated 03/22/18. FINDINGS: There is marked interval improvement of the layering right pleural effusion. Right costophrenic sulcu s is sharp. There is a skin fold of the right hemithorax in a vertical orientation. There is a similar appearance to the right middle lobe lung mass with likely a superimposed chronic fluid within the right major f issure. Left lung is relatively clear. Port catheter tip in good position. IMPRESSION: 1. Interval improvement in layering right pleural effusion. 2. Similar appearance right lung mass. POS: [facility]
--- NOTE | 2018-06-10 13:11 | MRI ---
MRI THORACIC SPINE WITHOUT CONTRAST: Date: 06/10/18 HISTORY: Cancer. Weakness. COMPARISON: Lumbar spine radiographs dated 06/02/18. FINDINGS: There is normal thoracic kyphosis. No marrow infiltrative process. Within the T8 vertebral body is a T2 hyperintense focus which is only mildly T1 hypointense and may reflect a vascular anomaly. There i s hemangioma within T6 vertebra. No neural foraminal or spinal canal narrowing. No compression fractu re. Large right-sided pleural effusion. Moderate left-sided pleural effusion. The aortic contour is nonaneurysmal. The known mediastinal mets, as well as the lung mass is not well seen. IMPRESSION: No definite evidence for osseous metastatic disease. No significant neural foraminal or spinal canal narrowing. No marrow infiltrative process. No compression fracture. POS: [facility]
--- NOTE | 2018-06-10 13:17 | MRI ---
MRI LUMBAR SPINE WITHOUT CONTRAST: Date: 06/10/18 HISTORY: Back pain. COMPARISON: lumbar spine radiograph dated 06/02/18. FINDINGS: Exam is severely limited due to motion artifact. No marrow infiltrative process. Hemangiomas within t he L1 and L2 vertebral bodies. No cauda equina compression. Mild bilateral neural foraminal narrowing L4-5 and L5-S1. No significant spinal canal narrowing. Narrowing of the intraspinous space at L4-5 and L3-4 with bursa formation. Mild bilateral paraspinal muscular edema at L3-L5, may be sequelae of muscle strain. L1-L2: Small bilateral subforaminal disk-osteophyte complexes. Mild bilateral neural foraminal narr owing. No spinal canal narrowing. L2-L3 Mild disk desiccation. Small bilateral subforaminal disk-osteophyte complexes. No significan t neural foraminal or spinal canal narrowing. L3-4: Low-grade circumferential disk bulge worst in the bilateral subforaminal zones. Moderate bila teral neural foraminal narrowing due to the disk bulge. There appears to be abutment of the exiting nerve roots. No significant spinal canal narrowing. L4-5: Bilateral moderate subforaminal disk-osteophyte complexes. These cause moderate bilateral chavo ral foraminal narrowing. No definite nerve root abutment. No spinal canal narrowing. L5-S1: Small bilateral subforaminal disk-osteophyte complexes. Mild bilateral neural foraminal narr owing. No nerve root abutment. IMPRESSION: 1. No evidence for cauda equina syndrome. No evidence for osseous metastatic disease. 2. Mild spondylosis as described above. 3. Mild bilateral paraspinal muscular edema at L3-L5 may be sequelae of muscle strain. POS: [facility]
[2018-06-10 13:39] LABS: Bilirubin Negative (Negative); Blood, Urine Negative (Negative); Clarity CLEAR (Clear); Glucose, Urine (Dipstick) Negative (Negative); Leukocyte Negative (Negative); Nitrite Negative (Negative); Protein, Urine (Dipstick) Negative (Neg-Trace)
[2018-06-10] MEDS ORDERED: Ondansetron ODT 4 MG TAB PO PRN (14:44)
[2018-06-10] MEDS ORDERED: Dextrose 50% Abboject 50 ML SYRINGE SLOW IVP PRN (15:01)
[2018-06-10] MEDS ORDERED: Dextrose 5% in Water 1,000 ML IV PRN (15:01)
[2018-06-10] MEDS: Sodium Chloride 0.9% 1,000 ML IV SCH ×4 (16:06→21:43)
--- NOTE | 2018-06-10 16:07 | HP ---
PRIMARY CARE PROVIDER: Dr. Glaser. ONCOLOGIST: Dr. San. [facility] emergency room for back pain and weakness. The patient has been progressively weak in his legs. He is now unable to stand or walk. He finished his 4th course of chemotherapy for lung cancer about two weeks ago. He has had some back pain from being in the bed all the time. He has had no fevers, sweats, or chills. He has a poor appetite, but it has gotten better. He was seen and examined and placed in the hospital. PAST MEDICAL HISTORY: Lung cancer diagnosed in March of 2018. He has had four cycles of chemotherapy. He does not know what they were. Coronary artery disease, post coronary artery bypass graft in 2005; diabetes mellitus type 2, on oral hypoglycemics; dyslipidemia; hypertension; benign prostatic hypertrophy with prostatism. He has had a history of gout. He has had an HI in the past. PAST SURGICAL HISTORY: Coronary artery bypass graft in 2005. He has had lumbar spine surgery. He has had a MediPort placement. CURRENT MEDICATIONS: 1. Allopurinol 100 mg a day. 2. Plavix 75 mg 1/2 a day. 3. Metformin 1000 mg twice a day. 4. Metoprolol 25 mg once a day. 5. Protonix 40 mg a day. 6. Digoxin 0.125 mg a day. 7. Actos 15 mg a day. 8. Proscar 5 mg a day. 9. Vascepa two caps twice a day before meals. 10. Dulera two puffs b.i.d. and some ketd-nbe-ewkxyzm medicines. ALLERGIES: HE HAS NO MEDICAL ALLERGIES. FAMILY HISTORY: Negative for coronary artery disease, diabetes, or cancer. 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 He quit smoking 10 years ago. Uses no alcohol or illicit drugs. Code status is full. His surrogate decision maker is his live-in clinical psychologist. REVIEW OF SYSTEMS: GENERAL: No headaches, dizziness, or fainting. EYES: No double vision, blurred vision, or flashing lights. EARS, NOSE, AND THROAT: No ear pain or drainage. No nasal bleeding. No trouble swallowing. CARDIAC: No chest pain, orthopnea, or paroxysmal nocturnal dyspnea. RESPIRATION: Marked dyspnea on exertion. No asthma or cough. GASTROINTESTINAL: No nausea, vomiting, diarrhea, or constipation. GENITOURINARY: No hematuria or dysuria. MUSCULOSKELETAL: Occasional swelling in his legs, unable to stand or walk for 1-2 weeks. NEUROLOGIC: No history of stroke or seizures. He does have the weakness mentioned under musculoskeletal, focal in his legs. PSYCHIATRIC: No anxiety, depression. SKIN: No bruising, bleeding or rash. HEME/LYMPH: No tender or swollen lymph nodes in axilla, inguinal, or cervical area. PHYSICAL EXAMINATION: GENERAL: Alert, cooperative, pleasant gentleman, in no acute distress. VITAL SIGNS: Blood pressure 142/85, pulse 108, respirations 24, temperature 98. HEAD, EYES, EARS, NOSE, AND THROAT: Revealed pupils are equal, round, and reactive to light. Extraocular movements are intact. Sclerae are white. Tympanic membranes clear. Nose clear. Oral mucous membranes are wet. NECK: Supple without jugular venous distention, adenopathy, thyromegaly. CHEST: Clear to auscultation and percussion. HEART: Regular rate and rhythm. First and second heart sounds are clear. There are no appreciated murmurs or gallops. ABDOMEN: Soft. Bowel sounds are normal. There is no hepatosplenomegaly. No mass. No rebound. EXTREMITIES: No cyanosis, clubbing, or edema. PULSES: Carotid, radial, and femoral and dorsalis pedis pulses intact. SKIN: Warm and dry without bruises or rash. HEME/LYMPH: No tender or swollen lymph nodes. NEUROLOGICAL: Cranial nerves 2 through 12 are intact. Strength normal in his arms. Deep tendon reflexes normal in his arms. Legs, bilateral footdrop. Toes are neutral. Deep tendon reflexes absent in his legs. STUDIES: Chest x-ray, no cardiomegaly or CHF. He does have a complex mass in his right chest as noted earlier. He had a PET scan done 05/06/2018, which shows improvement post initiation of chemotherapy. EKG: Regular sinus rhythm. No acute abnormality. LABORATORY DATA: Comprehensive metabolic profile, decreased sodium at 131, decreased CO2 of 21, creatinine 0.69, BUN 10, lactic acid 2.8. AST 118, ALT low , bilirubin 0.04. White count 5.8, hemoglobin 9.9, ADMITTING DIAGNOSIS: 1. Lung cancer, post four rounds of chemotherapy. 2. Profound weakness in legs with absent deep tendon reflexes and a footdrop bilaterally. 3. Diabetes mellitus type 2. 4. Coronary artery disease, post coronary artery bypass graft. 5. Dyslipidemia. 6. Hypertension. 7. Gout. 8. Lactic acidosis. PLAN: 1. Admit to observation. 2. Neurology consult-footdrop and absent reflexes in his legs, worry about demyelinating neuropathy versus Guillain-[place] versus ? 3. Oncology consult-weakness in his legs. Question is could chemotherapy had caused this. 4. PT/OT. 5. IV fluids. 6. clinical resource manager consult for longterm facility for PT and OT versus inpatient rehab for PT and OT. Job ID: [id number] [facility]
[2018-06-10 16:11] VITALS: BMI 23.4
[2018-06-10] MEDS ORDERED: Icosapent Ethyl [Vascepa] 2 GM PO SCH (17:00)
[2018-06-10] MEDS: Zolpidem Tartrate 5 MG TAB PO PRN (20:10)
[2018-06-10] MEDS: Acetaminophen 325 MG TAB PO PRN (20:10)
[2018-06-10] MEDS: Mometasone/Formoterol 120 PUFF INHALER INH SCH (21:03)
--- NOTE | 2018-06-10 22:07 | CON ---
DATE OF CONSULTATION: 06/10/2018 CONSULT PHYSICIAN: Hospitalist Service. 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 This was likely brought on by his chemotherapy and his underlying diabetes. PLAN: Rehab. HISTORY OF PRESENT ILLNESS: Mr. Tobin is a 78-year-old man who was recently diagnosed with lung cancer. He has been undergoing a chemotherapy, which apparently is neurotoxic. He has developed some progressive tingling and numbness in his hands and weakness in his legs. He got to the point he could not walk and came into the hospital. He complains of some lower back pain, but otherwise no other acute spinal pain. He had an MRI of the thoracic spine, which was clear. MRI of the lumbar spine showed some degenerative changes, but no significant stenosis. He has had an MRI of the brain last year, which showed a left cerebellar metastasis, it otherwise is unremarkable. PAST MEDICAL HISTORY: Positive for diabetes, coronary disease, hyperlipidemia, lung cancer. ALLERGIES: NONE. SOCIAL HISTORY: No alcohol or drug use. FAMILY HISTORY: Noncontributory. MEDICATIONS: Medication list was reviewed. REVIEW OF SYSTEMS: A 12-system review of system was otherwise negative. PHYSICAL EXAMINATION: GENERAL: He is a thin elderly man, lying in bed, in no distress. VITAL SIGNS: Stable. He is afebrile. HEENT: Pupils equal and reactive. Conjunctivae clear. Oropharynx clear. No tongue fasciculations are present. NECK: Supple. No lymphadenopathy noted. EXTREMITIES: No cyanosis, clubbing, or edema. NEUROLOGIC: He was alert and cooperative. His speech is fluent and clear. Cranial nerves 2 through 12 are intact. Motor exam showed 4-/5 strength in the proximal upper extremities. Distal extremity strength was 3+/5 in the hands. Lower extremity testing showed 3-/5 hip flexion and knee extension. Ankle flexion was essentially 0. Plantar flexion was 3/5. Sensation was decreased to light touch, temperature, and proprioception. Reflexes were diffusely absent. He could sit at the bedside for the most part and no other abnormal movements were seen. SUMMARY: Given the diffuse weakness, which is distally predominant, sensory deficits that are present, he has clinical picture of an acute neuropathy, there is not much that could be done at this point other than hope that he makes recovery with time. Job ID: [id number]
[2018-06-10] MEDS ORDERED: Sodium Chloride 0.9% 1,000 ML IV SCH (22:15)
--- NOTE | 2018-06-10 22:39 | RAD ---
AP VIEW CHEST: 06/10/18 HISTORY: Decreased O2 saturation. AP view chest is obtained on 06/10/18. Comparison made to previous exam from earlier in the day on 06/10/18. AP view chest demonstrates sternotomy wires seen. There is a left jugular Mediport catheter in place. Area of opacity seen in the right mid lung unchanged since the previous exam. No significant interval changes seen in the appearance of the lung parenchyma bilaterally. No evidence of pneumothorax seen. IMPRESSION: Stable AP view of the chest not significantly changed since the previous exam from approximately 12 h ours earlier. POS: [facility]
[2018-06-10] MEDS: Acetaminophen/Codeine 30-300mg Tablet PO PRN (23:01)
--- NOTE | 2018-06-11 02:49 | PDOC.EVN ---
Event Note - Event Note Event Note: Several pages during the night from RN regarding SOB and tachycardia. Pt was on 175 cc/hr of IVF. Pt complained of SOB and O2 sat fell to low 90s on RA. Per RN HR in 120s. Pt was placed on NC O2. Per RN, pt had wheezes. I evaluated pt at 2: 30 AM, Pt denied any CP or SOB. last chemo 2 weeks ago for lung CA. CXR reviewed , no changes from admission. lab reviewed. On exam: tachycardia with irregularly irregular HR, no M/R/G. Lungs B/L crackles noted. No M/R/G. EKG: Afib with RVR HR 113. BP 156/84, HR 124, O2 sat 96 1L Suspect SOB possible due to fluid overload vs Afib RVR - D/c IVF. Initially were decreased to 67/hr - Cont O2 NC - CT Chest w/o contrast Stat - One does of metoprolol 25 mg. Pt is already on metoprolol XR 25 mg daily.
[2018-06-11 03:00] LABS: #Lymphocytes 1.1 thou/uL (1.20-3.40); #Monocytes 0.7 thou/uL (0.11-0.59); #Neutrophils 3.9 thou/uL (1.40-6.50); %Basophils 0.6 % (0.0-1.0); %Eosinophils 0.3 % (0.0-10.0); %Lymphocytes 18.7 % (21.0-51.0); %Monocytes 12.9 % (0.0-10.0); %Neutrophils 67.5 % (42.0-75.0); Hemoglobin 9.5 g/dL (14.0-18.0); Mean Corpuscular HGB CONC 33.2 g/dL (32.0-36.0); Mean Corpuscular Hemoglobin 30.9 pg (27.0-31.0); Mean Platelet Volume 7.6 fL (7.4-10.4); Platelet Count 221 thou/uL (130-400); RBC Distribution Width 18.8 % (11.5-14.5); Red Blood Cell (RBC) Count 3.07 mill/uL (4.70-6.10); White Blood Cell (WBC) Count 5.8 thou/uL (4.8-10.8)
[2018-06-11] MEDS ORDERED: Metoprolol Tartrate 25 MG TAB PO SCH (03:00)
[2018-06-11 03:38] LABS: Anion Gap 15 mmol/L (10-20); BUN (Urea Nitrogen) 10 mg/dL (8.4-25.7); Calc. Creatinine Clearance 102 mL/min (70-130); Calcium 8.3 mg/dL (7.8-10.44); Carbon Dioxide 21 mmol/L (23-31); Chloride 102 mmol/L (98-107); Estimated GFR-MDRD Greater than 90; Glucose 129 mg/dL (83-110); Potassium 3.5 mmol/L (3.5-5.1); Sodium 134 mmol/L (136-145)
[2018-06-11] MEDS: Acetaminophen 325 MG TAB PO PRN ×2 (03:50→22:42)
[2018-06-11] MEDS: Mometasone/Formoterol 120 PUFF INHALER INH SCH ×2 (06:58→20:40)
--- NOTE | 2018-06-11 07:45 | PDOC.PN ---
- Subjective Encounter Start Date: 06/11/18 Encounter Start Time: 07:38 Subjective: no sob, pain - Objective Resuscitation Status - Order Detail: 06/10/18 14:40 Resuscitation Status Routine Resuscitation Status: FULL: Full Resuscitation MAR Reviewed: Yes Vital Signs & Weight: Vital Signs (12 hours) Temp Pulse Resp BP BP Pulse Ox 06/11/18 06:58 94 L 06/11/18 04:50 89 22 H 148/88 H 95 06/11/18 02:15 97.6 F 124 H 22 H 156/84 H 96 06/10/18 23:00 97.5 F L 115 H 20 144/86 H 96 06/10/18 21:03 126 H 28 H 94 L Weight Weight 173 lb I&O: 06/10/18 06/11/18 06/12/18 06:59 06:59 06:59 Intake Total 2077 Output Total 650 Balance 1427 Result Diagrams: 06/11/18 02:55 06/11/18 02:55 Additional Labs: Accuchecks 06/11/18 06/10/18 06/10/18 05:08 20:15 16:15 POC Glucose 141 H 172 H 142 H Phys Exam - Physical Examination Neck: no JVD Respiratory: clear to auscultation bilateral Cardiovascular: irregular Gastrointestinal: soft, positive bowel sounds Musculoskeletal: no edema profound weakness in lower ext with sensory/motor deficits Dx/Plan (1) Other symptoms and signs involving the musculoskeletal system Code(s): R29.898 - OTH SYMPTOMS AND SIGNS INVOLVING THE MUSCULOSKELETAL SYSTEM Status: Acute (2) Atrial fibrillation with RVR Code(s): I48.91 - UNSPECIFIED ATRIAL FIBRILLATION Status: Chronic Comment: Afib and rate controlled. Continue Metoprolol and Multaq. Weaned off of Cardizem (3) BPH (benign prostatic hyperplasia) Code(s): N40.0 - BENIGN PROSTATIC HYPERPLASIA WITHOUT LOWER URINRY TRACT SYMP Status: Chronic Qualifiers: Lower urinary tract symptom presence: unspecified whether lower urinary tract symptoms present Qualified Code(s): N40.0 - Benign prostatic hyperplasia without lower urinary tract symptoms (4) CAD (coronary artery disease) Code(s): I25.10 - ATHSCL HEART DISEASE OF [place] CORONARY ARTERY W/O ANG PCTRS Status: Chronic Qualifiers: Coronary Disease-Associated Artery/Lesion type: [place] artery [place] vs. 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 insulin use: without halfway use Diabetes mellitus complication status: without complication Qualified Code(s): E11.9 - Type 2 diabetes mellitus without complications (6) Dyslipidemia Code(s): E78.5 - HYPERLIPIDEMIA, UNSPECIFIED Status: Chronic (7) Gout Code(s): M10.9 - GOUT, UNSPECIFIED Status: Chronic Qualifiers: Gout site: unspecified site Gout etiology: unspecified cause Chronicity: chronic Presence of tophus: without tophus Qualified Code(s): M1A.9XX0 - Chronic gout, unspecified, without tophus (tophi) (8) Hypertension Code(s): I10 - ESSENTIAL (PRIMARY) HYPERTENSION Status: Chronic Qualifiers: Hypertension type: essential hypertension Qualified Code(s): I10 - Essential (primary) hypertension (9) Squamous cell lung cancer Code(s): C34.90 - MALIGNANT NEOPLASM OF UNSP PART OF UNSP BRONCHUS OR LUNG Status: Chronic Qualifiers: Laterality: right Qualified Code(s): C34.91 - Malignant neoplasm of unspecified part of right bronchus or lung (10) COPD (chronic obstructive pulmonary disease) Status: Suspected Qualifiers: Emphysema type: unspecified - Plan cont PT/OT -: had episode AF with RVR , rate now controlled -: Neurology confirms neuo deficits, no BRAMBILA recommended * .
[2018-06-11] MEDS ORDERED: Sodium Chloride 0.9% 10 ML ONE (08:24)
[2018-06-11] MEDS: metFORMIN 500 MG TAB PO SCH ×2 (09:28→16:38)
[2018-06-11] MEDS: Allopurinol 100 MG TAB PO SCH (09:29)
[2018-06-11] MEDS: Clopidogrel Bisulfate 75 MG TAB PO SCH (09:29)
[2018-06-11] MEDS: Cyanocobalamin (Vitamin B-12) 1,000 MCG TAB PO SCH (09:30)
[2018-06-11] MEDS: Finasteride 5 MG TAB PO SCH (09:32)
[2018-06-11] MEDS: Digoxin 0.125 MG TAB PO SCH (09:32)
[2018-06-11] MEDS: Lorazepam 0.5 MG TAB PO PRN ×2 (12:51→17:51)
--- NOTE | 2018-06-11 13:23 | CON ---
DATE OF CONSULTATION: 06/11/2018 CHIEF COMPLAINT: Weakness. HISTORY OF PRESENT ILLNESS: The patient was followed up today upon request from the floor requesting another consultation. The patient was seen by Dr. Nicolas yesterday. The patient is a 78-year-old man with history of pain and leg weakness in the last 2-1/2 weeks or so. He has a lung cancer, unclear what type this is even. He went from cane to walker in one week and currently is in wheelchair for the last week per his and they brought him to the hospital. He does complain of pain which is more like an ache in his legs. He had MRI of the lumbar spine, which is negative for any compressive lesions. He also completed MRI of the thoracic spine, which is negative. The patient has diabetes as well. He did not have any neurological issues prior to the last few weeks. He has been on chemotherapy. He received about 4 treatment cycles every 3 weeks and this has been the case over the last 12 weeks or so and no upper limb symptoms are reported. PAST MEDICAL HISTORY: Positive for diabetes, coronary artery disease, hyperlipidemia, and lung cancer. I am not sure what type he has and this detail is not in the chart either. MEDICATIONS: Current medications noted. He is on: 1. Allopurinol. 2. Plavix. 3. Metformin. 4. Metoprolol. 5. Protonix. 6. Digoxin. 7. Actos. 8. Proscar. 9. Vascepa. 10. Dulera. ALLERGIES: NO KNOWN DRUG ALLERGIES. PREVIOUS SURGICAL HISTORY: Coronary artery bypass graft in 2006, lumbar spine surgery in the past and he has a MediPort in place. FAMILY HISTORY: Negative for any cancer or similar neuropathies. REVIEW OF SYSTEMS: NEUROLOGICAL: Positive for leg pain and numbness and weakness. CARDIAC: Negative for chest pain or palpitations. PULMONARY: Negative for any pulmonary issues such as shortness of breath or cough at this time. GI: Negative for vomiting or diarrhea or GI blood loss. HEMATOLOGICAL: Negative for bleeding diatheses. DERMATOLOGIC: Negative for any skin rash. PSYCHIATRIC: Negative for depression or anxiety. LABORATORY WORKUP: So far, white count 5.8, hemoglobin 9.5, hematocrit 28.6, platelets 221. Chemistry; sodium 134, potassium 3.5, chloride 102, bicarb 21, BUN 10, creatinine 0.66, glucose 142-172 and also 141 today. Urinalysis positive for trace ketones. IMAGING STUDIES: He had an MRI of the thoracic spine and no definite evidence of osseous metastatic disease. No neuroforaminal or spinal canal narrowing. No marrow infiltrative process. No compressive fracture. Lumbar spine MRI is positive for degenerative disorder, degenerative joint disease, but no metastatic disease. PHYSICAL EXAMINATION: VITAL SIGNS: Blood pressure was 142/90, pulse was 100, temperature was 97.6. GENERAL APPEARANCE: Well-built, well-nourished gentleman, who seems to have some thigh muscle atrophy. CHEST: Clear vesicular breathing. CARDIOVASCULAR: S1, S2 heard. No abnormalities. NEUROLOGICAL: Higher intellectual function normal. Appropriate conversation. Normal orientation. Cranial nerves; normal extraocular movements. No facial asymmetry. Tongue midline. Motor examination; bulk seems to be decreased with thigh muscle atrophy and tone is normal. Strength is 3/5 in his hamstrings and quadriceps bilaterally and ankle dorsiflexion 0/5, plantar flexion 3+/5. Upper extremities, proximal strength is 5/5 in deltoid, biceps, triceps, and wrist extension 3/5, wrist flexion 4/5, finger extension 3/5, finger flexors 3/5. He had absent deep tendon reflexes in the upper extremities. Knee jerks were preserved at 2+. Sensory decreased to touch and cerebellar difficult to assess, but normal [id number]. IMPRESSION: The patient is a 78-year-old man with sudden onset leg weakness bilaterally over the past few weeks. He is a diabetic. He is also on chemotherapy for lung cancer. It is unclear if he has oat cell cancer or any other subtypes that can potentially cause and contribute to neuropathy. His examination shows diffuse muscle weakness, proximal and distal lower extremity weakness, distal upper extremity weakness. He will definitely need further workup including EMG nerve conduction studies. RECOMMENDATIONS: He will need EMG nerve conduction studies. I believe this can be done in outpatient setting, not in inpatient setting at our facility. I will also follow up on Oncology consultation. We do not know what type of chemotherapy he has received, when, whether this is neurotoxic or not and also details about his lung cancer. He may have a demyelinating neuropathy which can only be diagnosed on EMG nerve conduction studies and differential diagnosis here is neuropathy plus or myopathic processes, and it needs to be very clear whether he has a treatable demyelinating neuropathy versus axonal neuropathy and which is not really amenable to this treatment. At this time, he will need rehab services as well with rehabilitation for his balance and gait. Please call Neurology if you have any further questions. Job ID: [id number]
[2018-06-11] MEDS ORDERED: Nitroglycerin 0.4 MG TAB (25 Tab Bottle) SL PRN (13:47)
[2018-06-11] MEDS ORDERED: Lorazepam 0.5 MG TAB PO PRN (13:47)
--- NOTE | 2018-06-11 14:30 | MRI ---
MRI BRAIN WITH AND WITHOUT IV CONTRAST: Date: 06/11/18 HISTORY: Bilateral lower extremity weakness and footdrop. Lung cancer. COMPARISON: 03/03/18. FINDINGS: The current exam is somewhat limited due to presence of marked motion artifact. The small focus of abnormally increased postcontrast enhancement of the left cerebellar hemisphere no pavithra on the previous study appears minimally smaller on the current exam. No other/new abnormal areas of postcontrast enhancement seen in the brain. No restricted diffusion is seen. Change of chronic small vessel ischemic disease are again noted. The ventricular size is stable and the basilar cisterns are patent. No infarct hemorrhage, midline shift , or abnormal extra-axial fluid collections are seen. IMPRESSION: Minimal interval decrease in size of the small metastatic focus in the left cerebellar hemisphere sin ce 03/03/18. No new lesions are seen. POS: [place]
--- NOTE | 2018-06-11 14:50 | CT ---
CT THORAX NONCONTRAST: INDICATIONS: Shortness of breath. COMPARISON: CT thorax dated 02/12/2018. FINDINGS: Lack of IV contrast limits evaluation of the right infrahilar mass. Components of residual postobstr uctive consolidation and atelectasis within the right lower lobe persists. There is worsening bilateral pleural effusions. Enlarged lymph nodes of the right hilar region are slightly less prominent, but remain present. Ther e is a right paratracheal lymph nodes, previously measuring 2.7 cm, now measuring 1.8 cm. A 2.1 cm s piculated nodule within the right upper lobe is similar appearing. Other chronic lung changes are si milar appearing. Post CABG change is similar appearing. There is a small hiatal hernia. Adrenal gl ands appear within normal limits. There is a calcified granuloma within the liver and spleen. There is worsening scattered osteoblastic metastatic disease involving the thoracic spine, as well as the right fourth rib, laterally. An additional sclerotic lesion is seen within the lateral right fi fth rib. The most conspicuous lesion within the thoracic spine is within the right aspect of T3, debra suring 7 mm. This was not demonstrated on a comparison CT examination from 02/12/2018. IMPRESSION: 1. Interval development of moderate bilateral pleural effusions. 2. The patient's known right infrahilar mass lesion is not as well detailed, due to lack of contrast . The mass has reduced in size, comparatively, with slightly improved aeration of the right lung. T he residual air is post obstructive atelectasis and consolidation in the right upper lobe. A spicula pavithra nodule within the right upper lobe is stable, measuring 2.1 cm. 4. Malignant lymphadenopathy of the right hilar region, subcarinal region, and right paratracheal re gion persists but has improved in size. 5. Worsening osteoblastic metastatic disease of the thoracic spine and right ribcage. POS: [facility]
--- NOTE | 2018-06-11 15:10 | PDOC.EVN ---
Event Note - Event Note Event Note: after further review, discussion with oncology- guillian-barre due to immunotx is serios consideration. Pt moved to IMCU for closer observation and high dose solu-medrol started
--- NOTE | 2018-06-11 16:18 | CON ---
DATE OF CONSULTATION: REASON FOR CONSULT: Lung cancer. HISTORY OF PRESENT ILLNESS: Mr. 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 He had a left lower cervical node and a questionable T3 lesion. The patient had SRS to his brain lesion and then underwent 4 cycles of carboplatin, Taxol, and Keytruda. He tolerated all 4 cycles with mild numbness in his toes and fingers, fatigue, and diarrhea. Over the last week or so, he has gotten significantly weaker. He has been unable to use his walker and requires a wheelchair at home. The patient also complained of urinary and bowel incontinence. He saw Dr. San yesterday and was noted to have severe lower extremity weakness with 2/5 strength in his bilateral lower extremities. He had preserved strength in his upper extremities. There was no spinal tenderness. He was sent to the emergency room for evaluation. A lumbar and thoracic spine MRI was performed, which showed no evidence of metastatic disease. No evidence of cauda equina syndrome. The patient was admitted for further workup. Neurosurgery has been consulted. The patient complains of mild shortness of breath. No chest pain. PAST MEDICAL HISTORY: 1. 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 2. Diabetes. 3. Hypertension. 4. Coronary artery disease. 5. Hyperlipidemia. 6. Acid reflux. PAST SURGICAL HISTORY: 1. Back surgery. 2. Knee procedure. 3. Cardiac bypass. 4. Lung biopsy. ALLERGIES: NO KNOWN DRUG ALLERGIES. HOME MEDICATIONS: Reviewed in [place]. FAMILY HISTORY: Mother had unknown type of cancer. Sister had liver cancer. SOCIAL HISTORY: The patient had a significant other, 2 children. Pack a day smoker. No alcohol or illicit drug use. REVIEW OF SYSTEMS: Ten-point review of systems is negative except for shortness of breath. Neuropathy in both hands and feet and generalized weakness of his lower extremities. PHYSICAL EXAMINATION: VITAL SIGNS: Temperature is 97.8, pulse is 120, respiratory rate 22, BP is 158/87, and he is 96% on 1 L. GENERAL: Frail-appearing male, in no acute distress. HEENT: Normocephalic, atraumatic. Pupils are equal and reactive to light. NECK: Supple. CV: Regular rate and rhythm. LUNGS: He has scattered rhonchi throughout. ABDOMEN: Soft, nontender. No organomegaly. EXTREMITIES: No clubbing, cyanosis, or edema. SKIN: No rash. HEMATOLOGICAL: No petechiae or purpura. NEUROLOGICAL: Positive for bilateral lower extremity weakness with a strength of 2/5. PSYCH: The patient is alert and oriented and appropriate. PERTINENT LABORATORY AND X-RAYS: Current WBCs 5.8, hemoglobin 9.5, hematocrit 28.6, platelet count is 221,000, 68% neutrophils, 18% lymphocytes. Sodium is 134, potassium 3.5, chloride 102, CO2 is 21, BUN is 10, creatinine 0.66, and calcium is 8.6. Lactic acid is 2.8. Total bilirubin is 0.4, AST is 118, ALT is less than 7, and alkaline phosphatase is 64. Creatine kinase is 82. Serum total protein is 5.9, albumin 3.5, and globulin 2.4. Urine is negative for bacteria. ASSESSMENT: 1. Stage IV squamous cell carcinoma of the right lung, status post 4 cycles of carboplatin, Taxol, and Keytruda. 2. 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 DISCUSSION: The patient has been admitted for further workup. He has received Keytruda immunotherapy. 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 He has been started on steroids. Neurology has seen the patient. We will ask Dr. Maciel to evaluate his lung capacity. MRI brain will be performed. He may require IVIG. Dr. Beard will follow and is quality control lab tech this weekend. Thank you for the consult. Job ID: [id number]
[2018-06-11] MEDS: Acetaminophen/Codeine 30-300mg Tablet PO PRN (16:38)
--- NOTE | 2018-06-11 19:20 | CON ---
DATE OF CONSULTATION: 06/11/2018 HISTORY OF PRESENT ILLNESS: Mr. Tobin is a 78-year-old male with history of metastatic non-small cell lung cancer recently treated with carboplatin and Keytruda based treatment. His last cycle was approximately 3 weeks ago. He and his son reports that he has gotten progressively weak probably over the last 3 weeks, but particularly over the last 3 to 4 days. He was prior to this walking with a walker, but now he cannot ambulate at all. His legs are very weak as are his feet. He has some progressive weakness in his hand, but nothing else in his upper extremities. He denies any bowel or bladder incontinence. He presented to the emergency room via our office yesterday and MRI of the lumbar spine did not show cauda equina syndrome or any osseous metastatic disease. The patient was admitted for observation because he could not walk. Neurology has been consulted and has not determined any etiology of his weakness. He notably has been on Keytruda based therapy, which can contribute to this. PAST MEDICAL HISTORY: 1. Recent diagnosis of metastatic non-small cell lung cancer. 2. Coronary artery disease. 3. Diabetes mellitus. 4. Hyperlipidemia. 5. Hypertension. 6. BPH. 7. Gout. CURRENT MEDICATIONS: 1. Tylenol p.r.n. 2. Tylenol 3 one tablet p.o. q.8 hours p.r.n. 3. Allopurinol 100 mg p.o. daily. 4. Eliquis 5 mg p.o. b.i.d. 5. Vitamin C 1000 mg p.o. daily. 6. Plavix 37.5 mg p.o. daily. 7. B12 of 500 mcg p.o. daily. 8. Digoxin 0.125 mg p.o. daily. 9. Zetia 10 mg p.o. at bedtime. 10. Proscar 5 mg p.o. daily. 11. Glucagon p.r.n. 12. Insulin lispro p.r.n. 13. Ativan 0.5 mg p.o. q.6 hours p.r.n. 14. Metformin 1000 mg p.o. b.i.d. 15. Methylprednisolone 80 mg IV b.i.d. 16. Toprol-XL 25 mg p.o. daily. 17. Formoterol p.r.n. 18. Multivitamin one p.o. daily. 19. Nitrostat 0.4 mg sublingual p.r.n. 20. Zofran ODT 4 mg p.o. q.6 hours p.r.n. 21. Protonix 40 mg p.o. daily. 22. Actos 15 mg p.o. daily. 23. Zocor 80 mg p.o. at bedtime. 24. Vascepa 4 g p.o. b.i.d. 25. Ambien 5 mg p.o. at bedtime p.r.n. ALLERGIES: NO KNOWN DRUG ALLERGIES. SOCIAL HISTORY: He lives in [place]. He is here with his son, who is quite supportive. He does admit to a history of tobacco use. FAMILY HISTORY: Negative. REVIEW OF SYSTEMS: Otherwise, 10-point review of systems is negative including no cough and currently no shortness of breath. PHYSICAL EXAMINATION: VITAL SIGNS: Heart rate 88 to 105, respiratory rate 16 to 20, O2 saturations 99% on 2 to 3 L nasal cannula. GENERAL: He appears older than his stated age, in no acute distress. HEENT: Extraocular muscles are intact. Pupils are equal and reactive to light. He has no oral cavity lesions. NECK: Supple without lymphadenopathy. CARDIOVASCULAR: Regular rate and rhythm. LUNGS: Clear to auscultation, but with some poor inspiratory effort. ABDOMEN: Normoactive bowel sounds. Soft, nontender, nondistended. EXTREMITIES: No edema. No ecchymosis. He does 2 to 3/5 bilateral hip flexors and hip extensors. He does have 4/5 strength in his feet bilaterally. LABORATORY DATA: White blood cell count 5.8, hemoglobin 9.5, and platelets 221. Sodium 134, potassium 3.5, CO2 of 21, BUN 10, creatinine 0.6, glucose 129, calcium 8.3. ASSESSMENT: Mr. Tobin is a 78-year-old male with: 1. Metastatic non-small cell lung cancer currently getting chemotherapy with Keytruda. 2. Bilateral lower extremity weakness, progressive with difficulty ambulating. 3. Coronary artery disease and peripheral vascular disease. PLAN: 1. He has already been started on IV steroids. There is possibility that this is a neuromuscular side effect from the immunotherapy, Keytruda. It is possible that he has Guillain-[place] like syndrome. We have consulted Pulmonary as well as Neurology for help with this. 2. Steroids need to be continued at 1 to 2 mg/kg daily. Currently, he is on this dosing. 3. He has been moved to the [facility] for further monitoring. 4. He is diabetic and cardiac medications have been continued. We appreciate help from the primary team. 5. We will follow with you. Job ID: [id number]
[2018-06-11] MEDS: Apixaban 5 MG TAB PO SCH (20:11)
[2018-06-11] MEDS: Ezetimibe 10 MG TAB PO SCH (20:11)
[2018-06-11] MEDS: Simvastatin 40 MG TAB PO SCH (20:11)
[2018-06-11] MEDS: Zolpidem Tartrate 5 MG TAB PO PRN (20:11)
[2018-06-11] MEDS: methylPREDNISolone Sod Succ/PF 125 MG/2 ML VIAL IVP SCH (20:12)
[2018-06-11] MEDS ORDERED: SIMVASTATIN PO SCH (21:00)
[2018-06-11] MEDS ORDERED: EZETIMIBE PO SCH (21:00)
[2018-06-11] MEDS ORDERED: [UNRECOGNIZED DRUG - OTHER] PO SCH (21:00)
[2018-06-12] MEDS: Lorazepam 0.5 MG TAB PO PRN (04:29)
[2018-06-12] MEDS: Mometasone/Formoterol 120 PUFF INHALER INH SCH ×2 (07:40→19:27)
[2018-06-12] MEDS ORDERED: B LONGUM PO SCH (09:00)
[2018-06-12] MEDS ORDERED: B BIFIDUM PO SCH (09:00)
[2018-06-12] MEDS ORDERED: GASSERI PO SCH (09:00)
--- NOTE | 2018-06-12 09:13 | PDOC.PN ---
- Subjective Encounter Start Date: 06/12/18 Encounter Start Time: 09:11 Patient seen and examined, states he's feeling a bit better today than yesterday , no family at bedside, all questions answered. - Objective Resuscitation Status - Order Detail: 06/10/18 14:40 Resuscitation Status Routine Resuscitation Status: FULL: Full Resuscitation Vital Signs & Weight: Vital Signs (12 hours) Temp Pulse Resp Pulse Ox 06/12/18 07:40 94 17 99 06/12/18 07:20 97 06/12/18 04:00 97.6 F 06/12/18 00:00 98.4 F Weight Admit Weight 173 lb Weight 173 lb Most Recent Monitor Data Heart Rate from ECG 107 NIBP 140/85 NIBP BP-Mean 103 Respiration from ECG 22 SpO2 82 I&O: 06/11/18 06/12/18 06/13/18 06:59 06:59 06:59 Intake Total 2077 530 Output Total 650 1180 Balance 1427 -650 Result Diagrams: 06/11/18 02:55 06/11/18 02:55 Additional Labs: Accuchecks 06/12/18 06/11/18 06/11/18 06:14 20:11 17:04 POC Glucose 166 H 129 H 133 H Phys Exam - Physical Examination Constitutional: NAD HEENT: PERRLA, moist MMs, sclera anicteric Neck: no nodes, no JVD, supple Respiratory: no wheezing, no rales, no rhonchi Cardiovascular: RRR, no significant murmur, no rub Gastrointestinal: soft, non-tender, no distention Neurological: non-focal, normal sensation Psychiatric: normal affect Deviation from normal: B/L LE weakness, hip flexion 3/5, dorsiflexion 3/5 Dx/Plan (1) Lower extremity neuropathy Code(s): G57.90 - UNSPECIFIED MONONEUROPATHY OF UNSPECIFIED LOWER LIMB Status : Acute (2) Squamous cell lung cancer Code(s): C34.90 - MALIGNANT NEOPLASM OF UNSP PART OF UNSP BRONCHUS OR LUNG Status: Chronic Qualifiers: Laterality: right Qualified Code(s): C34.91 - Malignant neoplasm of unspecified part of right bronchus or lung (3) COPD (chronic obstructive pulmonary disease) Status: Suspected Qualifiers: Emphysema type: unspecified (4) Hypotension Status: Resolved - Plan * GBS being considered as a possibility in patient, he remains in IV steroids, has some subjective improvement * neurology consultation pending, may consider IVIG? * continue current plan of care with no changes for now * transfer out of IMCU if continues to have improvement over the next 24 hours. * case and plan d/w patient at length, he understood and agreed with this plan
[2018-06-12] MEDS: methylPREDNISolone Sod Succ/PF 125 MG/2 ML VIAL IVP SCH ×2 (09:41→20:19)
[2018-06-12] MEDS: Ascorbic Acid 500 mg Chewable Tablet PO SCH (09:42)
[2018-06-12] MEDS: Cyanocobalamin (Vitamin B-12) 1,000 MCG TAB PO SCH (09:43)
[2018-06-12] MEDS: Clopidogrel Bisulfate 75 MG TAB PO SCH (09:43)
[2018-06-12] MEDS: Digoxin 0.125 MG TAB PO SCH (09:43)
[2018-06-12] MEDS: Finasteride 5 MG TAB PO SCH (09:43)
[2018-06-12] MEDS: Pioglitazone HCl 15 MG TAB PO SCH (09:44)
[2018-06-12] MEDS: metFORMIN 500 MG TAB PO SCH ×2 (09:44→17:40)
[2018-06-12] MEDS: Allopurinol 100 MG TAB PO SCH (09:44)
[2018-06-12] MEDS: Multivit, Therapeutic 1 TAB PO SCH (09:45)
[2018-06-12] MEDS: Apixaban 5 MG TAB PO SCH ×2 (09:45→20:18)
--- NOTE | 2018-06-12 11:13 | PRG ---
DATE OF SERVICE: 06/12/2018 SUBJECTIVE: This morning, he is better. He is able to lift his leg off the bed. I had a lengthy discussion with Dr. Beard yesterday regarding the patient's symptoms. She thinks the immunotherapy he is getting for his lung cancer could be accounting for his symptoms with lower extremity weakness, likely Enbrel. OBJECTIVE: GENERAL: This morning, he is definitely better. VITAL SIGNS: Sats are 94% on room air, blood pressure is 117/75, pulse 105, respiratory rate 18. CHEST: Decreased breath sounds. No wheezing. CARDIAC: Normal S1, S2. No gallops. ABDOMEN: No masses. IMPRESSION: Metastatic squamous cell carcinoma, lower extremity weakness, probably from immunotherapy. PLAN: Continue high-dose steroids, PT, supportive care. We will follow. Job ID: [id number]
--- NOTE | 2018-06-12 11:14 | CON ---
DATE OF CONSULTATION: HISTORY OF PRESENT ILLNESS: Duglas Tobin is a 78-year-old gentleman , who has known history of squamous cell carcinoma diagnosed following a bronchoscopy with [employer]. He comes now with a 3-week history of marked lower extremity weakness. Physical Therapy was seeing him there. He had an MRI done of his head, which showed his metastatic disease is much smaller. He had progressive weakness of both lower extremities. He was seen by 2 different neurologists. No definitive diagnosis was made. There was some concern about ordering an EMG and nerve conduction study. Obviously, this is not being done at this institution at this stage. He was transferred to MICU because of concern about progressive weakness of his legs. When I saw him in the MICU, he appears to be in no acute distress. He is able to move both legs off the bed, but clearly they are weak. I am told he had imaging studies of his spine, which shows no evidence of any metastatic disease to the spine. Denies any chest pain, chills, or sweats. Denies any cough. PAST MEDICAL HISTORY: Diabetes, COPD, tobacco abuse, BPH, squamous cell carcinoma, coronary artery disease, and SVT. CHRONIC MEDICATIONS: Includes: 1. Metformin 1000 twice a day. 2. Actos 15 a day. 3. Dulera 200\5 2_twice a day. 4. Metoprolol-XL 25. 5. Tradjenta 5. 6. Ativan 1MG_. 7. Zetia 10MG_. 8. Digoxin 0.125. 9. Plavix 35MG . 10. Allopurinol 100. ALLERGIES: NONE. SOCIAL HISTORY: Tobacco, quit. Alcohol, none. REVIEW OF SYSTEMS: Otherwise, 10-point negative. PHYSICAL EXAMINATION: VITAL SIGNS: Sats are 90% on 1 L, respiratory rate 22, pulse 120, temperature 97 , and blood pressure 150/89. GENERAL: Awake, alert, and responsive. CHEST: Decreased breath sounds. No wheezing. CARDIAC: Normal S1 and S2. No gallops. ABDOMEN: Soft. NEUROLOGIC: Awake, alert, responsive. Marked weakness of both legs. LABORATORY DATA: Creatinine is 0.6. White count 5000, hemoglobin and hematocrit of 9 and 28, and platelet count is normal. His thoracic and lumbar MRI done on shows no evidence of osseous metastasis. There was mild bilateral paraspinal edema at L3 to L5 area. His thoracic MRI showed no evidence of any metastatic disease. CT of chest showed bilateral pleural effusion, which is relatively new. His chest x-ray shows right hilar mass and small blunting of both costophrenic angle. IMPRESSION: 1. Lower extremity weakness, status post chemotherapy per Oncology. No evidence of spinal or thoracic metastasis. 2. ascending leg weakeness. 3. Congestive heart failure. 4. Supraventricular tachycardia. 5. Diabetes _. PLAN: 1. Input from Neurology does not definitely make a diagnosis of Guillain-[place] disease. They recommended EMG nerve conduction studies, once again I doubt this can be done at this institution. He was started on high-dose steroids for presumed myelopathy. 2. As far as pulmonary melendez, he is stable and nothing additional to offer at this stage, neb treatment as needed. 3. Cardiac issues will be controlled with appropriate medication. If he clearly has evidence of ascending paralysis, may need to start him on _IMMUNOGLOBULIN right away. At this stage, it appears relatively stable. We will follow. Consultation note, 70 minutes, 50% of direct patient care. Job ID: [id number] MAR[facility]
--- NOTE | 2018-06-12 13:09 | PRG ---
DATE OF SERVICE: CHIEF COMPLAINT: Weakness. INTERVAL HISTORY: The patient is receiving IV steroids. A new information was obtained today from the patient and the treating physician. I had spoken to his oncologist as well. The patient is on a monoclonal antibody therapy for his cancer called Keytruda. It has side effects of potentially causing Guillain-[place] syndrome. The patient reports he is still weak. He is on steroids, which is resulting in some improvement per his treating oncologist. LABORATORY DATA: I reviewed his lab reports. White count 5.8, hemoglobin 9.5, hematocrit 28.6, platelets 221. Chemistry: 134 of sodium, potassium 3.5, chloride 102, bicarb 21, BUN 10, creatinine 0.66 with glucose 129. PHYSICAL EXAMINATION: VITAL SIGNS: Blood pressure 117/75, pulse is 89, and temperature is 97.6. NEUROLOGICAL EXAMINATION: Higher intellectual functions. Normal orientation to time, place, person. There is mild confusion about his room and where he is likely from steroids and his current condition. Motor examination: Bulk decreased in the proximal lower extremities. Strength 4/5 in his upper extremity flexors and extensors proximally and finger extension 3/5, finger flexors 3/5 on the right and 4/5 on the left. Lower extremity, hip flexion was 3/5, quadriceps and hamstrings were also 3/5. Ankle dorsiflexion 0/5. Ankle plantar flexion 3/5. Deep tendon reflexes 1+ in the knee. Upper limb, absent reflexes. IMPRESSION: The patient is a 78-year-old man with lung cancer and he has received Keytruda for his chemotherapy, which is I believe known to cause Guillain-[place] syndrome as a potential side effect. His current examination is consistent more with a myopathic and neuropathic process. I am unable to confirm this without ability to perform EMG nerve conduction studies on this patient. Unfortunately, this has to be done as outpatient. For now, I think it is important to at least obtain CSF to see if there is evidence for CSF pleocytosis. Per my discussion with his oncologist apparently IV steroids is the right treatment for this condition when they see this with Keytruda and that is the treatment recommendation. I also discussed possibly adding IVIG if the CSF is abnormal. As discussed we will request CSF study. Job ID: [id number]
--- NOTE | 2018-06-12 15:16 | EKG ---
Test Reason : SOB,AFIB Blood Pressure : / mmHG Vent. Rate : 086 BPM Atrial Rate : 394 BPM P-R Int : 000 ms QRS Dur : 078 ms QT Int : 358 ms P-R-T Axes : 000 -21 022 degrees QTc Int : 428 ms Atrial fibrillation - Atrial Flutter with premature ventricular or aberrantly conducted complexes Nonspecific T wave abnormality Abnormal ECG Confirmed by WEI NAVARRO, FREEMAN Romo ([id number]), index editor RADHA DUVALL ([id number]) on 06/12/2018 3:16:13 PM Referred By: Confirmed By:FREEMAN CARVAJAL MD
[2018-06-12] MEDS: Ezetimibe 10 MG TAB PO SCH (20:18)
[2018-06-12] MEDS: Simvastatin 40 MG TAB PO SCH (20:19)
[2018-06-12 22:22] VITALS: BP 115/63
[2018-06-13] MEDS: Acetaminophen 325 MG TAB PO PRN ×2 (00:24→23:17)
[2018-06-13] MEDS: HumaLOG 300 UNITS/3 ML VIAL SC PRN ×3 (06:44→17:27)
[2018-06-13] MEDS: Apixaban 5 MG TAB PO SCH ×2 (08:35→20:20)
[2018-06-13] MEDS: Allopurinol 100 MG TAB PO SCH (08:35)
[2018-06-13] MEDS: metFORMIN 500 MG TAB PO SCH ×2 (08:35→17:27)
[2018-06-13] MEDS: Finasteride 5 MG TAB PO SCH (08:36)
[2018-06-13] MEDS: Clopidogrel Bisulfate 75 MG TAB PO SCH (08:36)
[2018-06-13] MEDS: Digoxin 0.125 MG TAB PO SCH (08:36)
[2018-06-13] MEDS: Cyanocobalamin (Vitamin B-12) 1,000 MCG TAB PO SCH (08:36)
[2018-06-13] MEDS: Ascorbic Acid 500 mg Chewable Tablet PO SCH (08:36)
[2018-06-13] MEDS: methylPREDNISolone Sod Succ/PF 125 MG/2 ML VIAL IVP SCH (08:37)
[2018-06-13] MEDS: Multivit, Therapeutic 1 TAB PO SCH (08:37)
[2018-06-13] MEDS: Pioglitazone HCl 15 MG TAB PO SCH (08:37)
[2018-06-13] MEDS: Mometasone/Formoterol 120 PUFF INHALER INH SCH ×2 (10:22→19:15)
--- NOTE | 2018-06-13 11:00 | PRG ---
DATE OF SERVICE: 06/13/2018 SUBJECTIVE: Duglas Tobin is a 78-year-old gentleman, this morning, he is doing better. He is able to lift his legs off the bed. OBJECTIVE: VITAL SIGNS: on room air, blood pressure respiratory rate 18. CHEST: Bilateral wheezing. CARDIAC: Normal S1, S2. No gallops. ABDOMEN: No masses. IMPRESSION: 1. Lower extremity weakness secondary to immunotherapy for bronchogenic carcinoma squamous cell. 2. Chronic obstructive pulmonary disease. PLAN: Continue steroids. Supportive care, PT. Job ID: [id number]
--- NOTE | 2018-06-13 11:48 | PDOC.PN ---
- Subjective Encounter Start Date: 06/13/18 Encounter Start Time: 11:45 Patient seen and examined, no other issues or concerns, all questions answered. - Objective Resuscitation Status - Order Detail: 06/10/18 14:40 Resuscitation Status Routine Resuscitation Status: FULL: Full Resuscitation Vital Signs & Weight: Vital Signs (12 hours) Temp Pulse Resp Pulse Ox 06/13/18 10:22 96 14 100 06/13/18 08:36 70 06/13/18 07:41 98 06/13/18 07:40 97.8 F 06/13/18 04:00 98.0 F 06/13/18 00:00 98.4 F Weight Admit Weight 173 lb Weight 173 lb Most Recent Monitor Data Heart Rate from ECG 87 NIBP 118/73 NIBP BP-Mean 88 Respiration from ECG 7 SpO2 100 I&O: 06/12/18 06/13/18 06/14/18 06:59 06:59 06:59 Intake Total 530 920 Output Total 1180 900 Balance -650 20 Result Diagrams: 06/11/18 02:55 06/11/18 02:55 Additional Labs: Accuchecks 06/13/18 06/13/18 06/12/18 10:40 06:04 20:31 POC Glucose 267 H 180 H 182 H 06/12/18 16:20 POC Glucose 120 H Phys Exam - Physical Examination Constitutional: NAD HEENT: PERRLA, moist MMs, sclera anicteric Neck: no nodes, no JVD, supple Respiratory: no wheezing, no rales, no rhonchi Cardiovascular: RRR, no significant murmur, no rub Gastrointestinal: soft, non-tender, no distention, positive bowel sounds Musculoskeletal: pulses present, edema present (trace) Neurological: normal sensation decreased hip flexion 4/5 decreased dorsiflexion 4/5 Dx/Plan (1) Lower extremity neuropathy Code(s): G57.90 - UNSPECIFIED MONONEUROPATHY OF UNSPECIFIED LOWER LIMB Status : Acute (2) Squamous cell lung cancer Code(s): C34.90 - MALIGNANT NEOPLASM OF UNSP PART OF UNSP BRONCHUS OR LUNG Status: Chronic Qualifiers: Laterality: right Qualified Code(s): C34.91 - Malignant neoplasm of unspecified part of right bronchus or lung (3) COPD (chronic obstructive pulmonary disease) Status: Suspected Qualifiers: Emphysema type: unspecified (4) Hypotension Status: Resolved - Plan * cont with steroids * consideration being given to CSF evaluation for now, will need to DC eliquis if decision finalized to pursue CSF analysis * BP stable * patient states he's having symptomatic improvement, continue current plan of care, may not need IVIG given good improvement? * keep in IMCU for another 24 hours, can likely transfer in AM to med/sx if patient feeling better and start PT/OT * case and plan d/w patient at length, he understood and agreed with this plan.
[2018-06-13 13:29] LABS: CSF Source CSF; Clarity Clear (Clear); Tube # 4
[2018-06-13 13:31] LABS: RBC Count - Manual 2 /cumm (None Seen); WBC/NonHematics Count - Manual 0 /cumm (0-5)
--- NOTE | 2018-06-13 14:08 | RAD ---
FLUOROSOCPIC GUIDED LUMBAR PUNCTURE: HISTORY: Neurologic symptoms. 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 FINDINGS: After explaining the procedure and answering all questions, the lower back was prepped and draped in the usual sterile fashion. Sterile technique, buffered local anesthesia, fluorosocpic guidance, and a right posterolateral L2-3 approach were used to carefully advance the tip of a 20-gauge spinal need le into the thecal sac. Opening CSF pressure was measured at 27 cm. A total volume of 8 cc clear CSF was collected and sent to laboratory for analysis. Needle was remov ed. The patient tolerated the procedure well and was returned in unchanged condition. IMPRESSION: 1. Elevated opening cerebrospinal fluid pressure of 27 cm. 2. Technically successful fluoroscopic-guided lumbar puncture. Laboratory analysis pending. POS: OWEN
[2018-06-13] MEDS ORDERED: Bacteriostatic Water 30 ML VIAL FS PRN (16:22)
--- NOTE | 2018-06-13 18:10 | PRG ---
DATE OF SERVICE: 06/13/2018 CHIEF COMPLAINT: Weakness. INTERVAL HISTORY: The patient is doing much better today after 2 days of IV steroid. His strength is improved. He reports he is feeling better. No complications are noted so far. He has been seen by oncologist plus hospitalist as well, and his demeanor and strength have improved. LABORATORY DATA: Current CSF reports white count is 0. Glucose is 91, protein is 98. Other lab reports; white count today is 5.8, hemoglobin 9.5, hematocrit 28.6, platelets are 221, and glucose 267. PHYSICAL EXAMINATION: VITAL SIGNS: Blood pressure was 124/74, pulse of 92, and temperature 98. NEUROLOGIC: The patient was alert, awake, and oriented to time, place, and person. Motor examination, strength is 5/5 in both upper and lower extremities both distal and proximal muscles included. Deep tendon reflexes were 2+ throughout the upper and lower extremities. 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 Per my conversation with the oncologist, IV steroids were the treatment of choice. He has received 2 days of IV steroids and is doing very well and has clinically improved significantly and his strength has returned to baseline. As planned today, he is going to sit up and get some physical therapy. RECOMMENDATIONS: Please continue current plan of management. Based on CSF studies, looks like there is some evidence of possible Guillain-Canisteo syndrome in this patient. Please call Neurology if you have any further questions. Job ID: [id number]
[2018-06-13] MEDS: Ezetimibe 10 MG TAB PO SCH (20:20)
[2018-06-13] MEDS: methylPREDNISolone Sod Succ 40 MG VIAL IVP SCH (20:20)
[2018-06-13] MEDS: Simvastatin 40 MG TAB PO SCH (20:20)
[2018-06-14] MEDS: HumaLOG 300 UNITS/3 ML VIAL SC PRN (07:20)
[2018-06-14] MEDS: Mometasone/Formoterol 120 PUFF INHALER INH SCH (08:30)
--- NOTE | 2018-06-14 09:09 | PRG ---
DATE OF SERVICE: 06/14/2018 SUBJECTIVE: This morning, he is better. He is able to lift his legs off the bed. OBJECTIVE: VITAL SIGNS: Saturations are 99% on 2 L, respiratory rate 29, pulse 104, blood pressure 140/80, afebrile 97. CHEST: Decreased breath sounds. Bilateral rhonchi. CARDIAC: Normal S1 and S2. No gallops. ABDOMEN: No masses. LABORATORY STUDIES: CSF was unremarkable, no WBCs. Glucose was 91, protein was 90 and slightly elevated. Blood glucose elevated, probably from his diabetes. IMPRESSION: 1. Lower extremity weakness, probably medication related, immunotherapy for squamous cell carcinoma. 2. Squamous cell carcinoma, on chemotherapy, drug is Keytruda. 3. Chronic obstructive pulmonary disease, atrial fibrillation. PLAN: Continue steroids. Continue neb treatments. He can be transferred out of the MICU. Job ID: [id number]
[2018-06-14] MEDS: Allopurinol 100 MG TAB PO SCH (09:53)
[2018-06-14] MEDS: metFORMIN 500 MG TAB PO SCH (09:53)
[2018-06-14] MEDS: Ascorbic Acid 500 mg Chewable Tablet PO SCH (09:54)
[2018-06-14] MEDS: Apixaban 5 MG TAB PO SCH (09:54)
[2018-06-14] MEDS: Clopidogrel Bisulfate 75 MG TAB PO SCH (09:55)
[2018-06-14] MEDS: Digoxin 0.125 MG TAB PO SCH (09:56)
[2018-06-14] MEDS: Cyanocobalamin (Vitamin B-12) 1,000 MCG TAB PO SCH (09:56)
[2018-06-14] MEDS: Finasteride 5 MG TAB PO SCH (09:57)
[2018-06-14] MEDS: methylPREDNISolone Sod Succ 40 MG VIAL IVP SCH (09:58)
[2018-06-14] MEDS: Multivit, Therapeutic 1 TAB PO SCH (09:59)
[2018-06-14] MEDS: Pioglitazone HCl 15 MG TAB PO SCH (10:00)
[2018-06-14 12:34] VITALS: TEMP 98
--- NOTE | 2018-06-15 03:11 | DIS ---
DATE OF ADMISSION: 06/10/2018 DATE OF DISCHARGE: 06/14/2018 DISCHARGE DIAGNOSES: 1. 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 2. Stage IV small cell lung cancer, on current chemotherapy. 3. Chronic obstructive pulmonary disease. 4. Hypotension, resolved. 5. Diabetes mellitus type 2. 6. Coronary artery disease, chronic and stable. CONSULTATIONS: 1. Dr. Ridge Nicolas and Dr. Flanagan with Neurology Service. 2. Dr. Beard with Medical Oncology Service. 3. Dr. Maciel with Pulmonology Critical Care Service. PERTINENT LAB AND X-RAY FINDINGS: Sodium ranged between 131 to 134. Lactic acid level 2.8. Total CK of 82. CBC showed a white blood cell count of 5.8, hemoglobin 9.9, hematocrit 30.1, and platelet count 201. Cerebrospinal fluid dated 06/13/2018 showed CSF total protein 98, CSF glucose 91. Influenza A and B antigen dated 06/10/2018, negative. Portable chest x-ray dated 06/10/2018 showed opacity in the right mid lung zone, unchanged from prior exam. Thoracic spine MRI dated 06/10/2018 showed no definite evidence for osseous metastatic process. Lumbar spine MRI dated 06/10/2018 showed no evidence for cauda equina syndrome. No evidence for osseous metastatic process. CT of the chest dated 06/11/2018 showed moderate bilateral pleural effusions. Right infrahilar mass lesion. Malignant lymphadenopathy in the right hilar region, subcarinal, and right peritracheal region. 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 MRI of the brain dated 06/11/2018 showed small metastatic focus in the left cerebellar hemisphere. No new lesions noted. HOSPITAL COURSE: The patient was initially admitted after presenting with progressive back pain and lower extremity weakness with inability to walk. The patient's history significant for small cell lung cancer, completing 4 cycles of chemotherapy, presenting with profound weakness of the bilateral lower extremities with footdrop and areflexia. The patient underwent extensive evaluation including multiple MRI images of the lumbar and thoracic spine showing no acute spinal cord compression or significant osseous metastatic process. The patient was evaluated by the Neurology Service with recommendations for outpatient EMG nerve conduction studies. The patient also underwent CSF evaluation showing evidence of elevated total protein, concerning for Guillain-Crosby clinical picture. The patient was initiated on Solu-Medrol per recommendations of Medical Oncology Service with some improvement in overall lower extremity weakness. The patient was also noted with potential contribution of recent immunotherapy with Keytruda as likely contributing factor to the lower extremity weakness. The patient continued on IV steroids throughout the hospital course with current recommendations to transition to prednisone 40 mg daily x2 weeks, followed by 30 mg daily x2 weeks, followed by 20 mg daily x2 weeks, followed by 10 mg daily x2 weeks. Due to the patient's overall clinical condition and lower extremity weakness, he was deemed an appropriate candidate for ongoing skilled care. The patient has been approved for transfer to [facility] on 06/14/2018. I have examined the patient at the time of discharge and discussed followup instructions. The patient verbalized understanding and in agreement and ready for discharge on 06/14/2018. DISCHARGE MEDICATIONS: 1. Allopurinol 100 mg p.o. daily. 2. Eliquis 5 mg p.o. b.i.d. 3. Vitamin C 1000 mg p.o. daily. 4. Plavix 37.5 mg p.o. daily. 5. Vitamin B12 500 mcg p.o. daily. 6. Ezetimibe/simvastatin 10/80 mg one tablet p.o. at bedtime. 7. Finasteride 5 mg p.o. daily. 8. Vascepa 2 g p.o. b.i.d. 9. Tradjenta 5 mg p.o. daily. 10. Lorazepam 0.5 mg p.o. q.6 hours p.r.n. 11. Metformin 1000 mg p.o. b.i.d. 12. Toprol-XL 25 mg p.o. daily. 13. Multivitamin 2 tablets p.o. daily. 14. Protonix 40 mg p.o. daily. 15. Actos 15 mg p.o. daily. 16. Saw palmetto 450 mg p.o. b.i.d. 17. Digoxin 0.125 mg p.o. daily. 18. Dulera 2 puffs inhaled b.i.d. 19. Prednisone 40 mg p.o. daily x2 weeks, followed by 30 mg daily x2 weeks, followed by 20 mg p.o. daily x2 weeks, followed by 10 mg p.o. daily x2 weeks. FOLLOWUP: The patient may follow up with his primary care provider at [facility]. The patient will follow up with Dr. Ridge Nicolas with Neurology Service. The patient will follow up with Dr. San with Medical Oncology Service. CONDITION ON DISCHARGE: Fair. ACTIVITY: Ad stan, rolling walker with standby/contact guard assistance. DIET: ADA and heart healthy. CODE STATUS: Full. DISPOSITION: Discharged to [facility], 06/14/2018. TIME SPENT: Total time preparing and coordinating discharge 36 minutes. Job ID: [id number]
[2018-06-15 12:17] LABS: VDRL, CSF Non Reactive (Non Rea:<1:1)
--- NOTE | 2018-06-16 12:42 | EKG ---
Test Reason : STAT Blood Pressure : / mmHG Vent. Rate : 113 BPM Atrial Rate : 052 BPM P-R Int : 000 ms QRS Dur : 078 ms QT Int : 336 ms P-R-T Axes : 000 030 105 degrees QTc Int : 460 ms Atrial fibrillation with rapid ventricular response with premature ventricular or aberrantly conducte d complexes Nonspecific ST and T wave abnormality , probably digitalis effect Abnormal ECG When compared with ECG of 10-JUN-2018 10:11, (Unconfirmed) Nonspecific T wave abnormality now evident in Inferior leads Nonspecific T wave abnormality, worse in Lateral leads Confirmed by DR. Bg MARY ([id number]) on 06/16/2018 12:41:49 PM Referred By: Washington RODAS Confirmed By:DR. Bg MARY
[2018-06-16 16:13] LABS: Myelin Basic Protein, CSF 4.2 ng/mL (0.0-1.2)
--- NOTE | 2018-06-17 09:06 | PQF ---
LEILA ARTHUR, GARO G [id number] [facility] B08 [id number] CLINICAL DOCUMENTATION CLARIFICATION FORM: POST DISCHARGE Addendum to original discharge summary date: ____ Late entry note date: __ DATE: 06/17/18 ATTN: Dr. Maciel, Please exercise your independent, professional judgment in responding to the clarification form. Clinical indicators are provided on the bottom of this form for your review Please check appropriate box(s): HEART FAILURE: A. TYPE: [ ] Systolic / HFrEF [ ] Diastolic / HFpEF [ ] Combined Systolic / Diastolic B. ACUITY [ ] Acute [ ] Acute on Chronic [ ] Chronic [ ] Other diagnosis [ ] Unable to determine In addition, please specify: Present on Admission (POA): [ ] Yes [ ] No [ ] Unable to determine For continuity of documentation, please document condition throughout progress notes and discharge summary. Thank You. CLINICAL INDICATORS - SIGNS / SYMPTOMS / LABS Congestive heart failure---06/12 consult Marked dyspnea on exertion--H&P CT chest showed bilateral pleural effusion---06/12 consult Supraventricular tachycardia--06/12 consult RISKS: CAD--06/12 consult TREATMENTS: Digoxin 0.125--06/12 consult Thank you, Pauline Nasicmento, [facility] 06/17/18 9:02AM (This form is maintained as a part of the permanent medical record) 2014 [employer]. All Rights Reserved Pauline [email or web address] [phone] MTDD
== END 2018-06-14 16:07 | DRG 95 ==
LOC: ERS 09:58 → ERHOLD 13:05 → OBSVTOIN 13:05 → ONC 15:12 → 2NO 06-11 04:53 → IMCU/EMU 06-11 14:45
PROVIDERS: ADMIT Internal Medicine; ATTEND Internal Medicine
PROC: 009U3ZX Drainage of Spinal Canal, Percutaneous Approach, Diagnostic (ICD-10-PCS; principal; 2018-06-14)
PROC: B01B1ZZ Fluoroscopy of Spinal Cord using Low Osmolar Contrast (ICD-10-PCS; 2018-06-14)
DX: G61.0 Guillain-Barre syndrome (principal); E87.2 Acidosis; C79.31 Secondary malignant neoplasm of brain; I47.1 Supraventricular tachycardia; C34.91 Malignant neoplasm of unspecified part of right bronchus or lung; I50.30 Unspecified diastolic (congestive) heart failure; I25.10 Atherosclerotic heart disease of native coronary artery without angina pectoris; E11.9 Type 2 diabetes mellitus without complications; E78.5 Hyperlipidemia, unspecified; N40.0 Benign prostatic hyperplasia without lower urinary tract symptoms; G57.93 Unspecified mononeuropathy of bilateral lower limbs; T45.1X5A Adverse effect of antineoplastic and immunosuppressive drugs, initial encounter; I73.9 Peripheral vascular disease, unspecified; M1A.9XX0 Chronic gout, unspecified, without tophus (tophi); I48.2 Chronic atrial fibrillation; J44.9 Chronic obstructive pulmonary disease, unspecified; I95.9 Hypotension, unspecified; Z79.84 Long term (current) use of oral hypoglycemic drugs; Z79.899 Other long term (current) drug therapy; Z79.02 Long term (current) use of antithrombotics/antiplatelets; Z92.21 Personal history of antineoplastic chemotherapy; Z95.1 Presence of aortocoronary bypass graft; I25.2 Old myocardial infarction; Z87.891 Personal history of nicotine dependence
CPT/HCPCS: 36416; 62270; 70553; 71045; 71250; 72146; 72148; 80048; 80053; 81003; 82248; 82550; 82945; 83605; 83615; 83873; 84100; 84157; 84443; 84484; 84550; 85025; 86592; 86612; 86635; 86698; 87804; 89051; 93005; 93010; 96360; 96361; J2920; J2930

== ENCOUNTER 2018-07-02 08:49 | Emergency (ER) | payer MEDICARE ==
[2018-07-02 09:41] LABS: #Basophils 0.1 thou/uL (0.0-0.2); #Eosinphils 0.1 thou/uL (0.0-0.7); #Lymphocytes 1.6 thou/uL (1.20-3.40); #Monocytes 1.1 thou/uL (0.11-0.59); #Neutrophils 13.1 thou/uL (1.40-6.50); %Basophils 0.7 % (0.0-1.0); %Eosinophils 0.8 % (0.0-10.0); %Lymphocytes 10.2 % (21.0-51.0); %Monocytes 6.8 % (0.0-10.0); %Neutrophils 81.6 % (42.0-75.0); Hemoglobin 12.9 g/dL (14.0-18.0); Mean Corpuscular HGB CONC 32.1 g/dL (32.0-36.0); Mean Corpuscular Hemoglobin 31.7 pg (27.0-31.0); Mean Corpuscular Volume 98.9 fL (78.0-98.0); Mean Platelet Volume 7.4 fL (7.4-10.4); Platelet Count 271 thou/uL (130-400); RBC Distribution Width 18.4 % (11.5-14.5); Red Blood Cell (RBC) Count 4.08 mill/uL (4.70-6.10)
[2018-07-02 09:54] LABS: ALT (SGPT) 23 U/L (8-55); AST (SGOT) 175 U/L (5-34); Albumin 3.1 g/dL (3.4-4.8); Alkaline Phosphatase 101 U/L (40-150); Anion Gap 14 mmol/L (10-20); BUN (Urea Nitrogen) 19 mg/dL (8.4-25.7); Bilirubin, Total 0.6 mg/dL (0.2-1.2); Calc. Creatinine Clearance 0 mL/min (70-130); Calcium 8.7 mg/dL (7.8-10.44); Carbon Dioxide 27 mmol/L (23-31); Chloride 94 mmol/L (98-107); Estimated GFR-MDRD Greater than 90; Globulin 2.4 g/dL (2.4-3.5); Glucose 130 mg/dL (83-110); Potassium 3.6 mmol/L (3.5-5.1); Protein, Total 5.5 g/dL (5.8-8.1); Sodium 131 mmol/L (136-145)
[2018-07-02 10:34] LABS: Bilirubin Negative (Negative); Blood, Urine Negative (Negative); Clarity CLEAR (Clear); Glucose, Urine (Dipstick) Negative (Negative); Leukocyte Negative (Negative); Nitrite Negative (Negative); Protein, Urine (Dipstick) Negative (Neg-Trace); Specific Gravity, Urine 1.016 (1.002-1.036); pH, Urine 7.5 (5.0-9.0)
== END 2018-07-02 11:13 | disposition home or self-care (01) ==
LOC: ERS 08:49
DX: D72.829 Elevated white blood cell count, unspecified (principal); I25.10 Atherosclerotic heart disease of native coronary artery without angina pectoris; E11.9 Type 2 diabetes mellitus without complications; N40.0 Benign prostatic hyperplasia without lower urinary tract symptoms; E78.5 Hyperlipidemia, unspecified; I10 Essential (primary) hypertension; I25.2 Old myocardial infarction; M10.9 Gout, unspecified; Z87.891 Personal history of nicotine dependence; Z79.899 Other long term (current) drug therapy; Z79.84 Long term (current) use of oral hypoglycemic drugs
CPT/HCPCS: 36415; 80053; 81003; 84484; 85025; 93005

== ENCOUNTER 2018-07-12 08:47 | Outpatient (CLI) | payer MEDICARE ==
--- NOTE | 2018-07-12 12:51 | CT ---
CT OF CHEST PERFORMED WITH INTRAVENOUS CONTRAST ENHANCEMENT: HISTORY: Right colon cancer with a history of chemotherapy and radiation. COMPARISON: A 06/11/2018 CT of chest without contrast, PET scan of 05/06/2018, and CT of chest with contrast of 02/12. FINDINGS: There is a large right pleural effusion, it is similar to the previous examination. The left-sided e ffusion is also fairly similar. There is a slightly bilobed-appearing spiculated mass involving the anterior segment of the right upp er lobe. This shows a definite decrease in size as compared to the 02/12/2018 exam but appears stabl e as compared to the 06/11/2018 study. It is difficult to measure. I obtained a measurement of 1 comp onent of the spiculated lesion at 1.6 cm similar to the comparison area on the most recent previous s tudy. There is complete obliteration of the right lower lobe bronchus just slightly distal to its origin wi th post obstructive atelectatic change within the right lung. The atelectatic lung shows differentia l perfusion with areas of diminished perfusion demonstrated. It is not possible to separate what rep resents mass in this region from postobstructive atelectatic lung. I am not certain what component o f the atelectatic lung may be diffusely infiltrated with tumor. The one difference in the 2 most rec ent studies is, although the right lower lobe bronchus was significantly narrowed on the prior examin ation, there are still air bronchograms within the atelectatic lung, this is no longer present and th e right middle lobe bronchus which was very narrowed on the prior examination is now seen. No left-sided pulmonary nodules are identified. Atelectatic change related to the left effusion is s een in the left base. Postop sternotomy changes are present. The mediastinal adenpathy is definitely improved as compared to the 02/12/2018 study. The best example of comparison from the 02/12/2018 study is a right paratra cheal node measuring 14 mm in short axis dimension on the current study as compared to 19 mm on the p rior exam. The subcarinal lymphadenopathy shows some areas of lower attenuation change best demonstr ated on axial image 31 where the lymph node measures in the 18 mm range in short axis dimension simil ar to the 06/11/2018 study diminished as compared to the 02/12/2018 study when it measured slightly gre ater than 3 cm. The adenopathy which continues along the right side of the esophagus extending infer iorly is felt to be similar to the prior exam. The right hilar slightly oblong-shaped lymph node debra suring 19 mm in short axis dimension is felt to be slightly improved as compared to the 06/11/2018 stud y obtained a measurement of 2.2 cm in transverse dimension as compared to 1.9 cm. This measurement i s somewhat arbitrary as the previous exam is a noncontrast study and there is some volume averaging w ith the pulmonary artery. Left hilar nodes, some of which are calcified, appear stable. There are now findings suspicious for metastatic disease to the liver. These areas are subtle, but t he largest density is along the posterior aspect of the right lobe. It measures in the 2.8 cm range. There are other low-attenuation masses within the right lobe that are new as compared to the previo us study. The right and left adrenal glands are normal in appearance. The visualized portions of the kidneys a re normal. There are some subtle sclerotic bone lesions which appear stable as compared to the prior examination . The most conspicuous of these are axial image 12 which is a right-sided T3 lesion and a small scle rotic focus in the L1 vertebral body axial image 66. In addition, sclerotic lesions involving the ri ght lateral 4th and 5th ribs are stable. IMPRESSION: 1. Development of areas of low attenuation density within the liver highly suspicious for developmen t of metastatic disease. 2. The mediastinal and right hilar lymphadenopathy is fairly stable as compared to the prior examina tion. Some of the measurements are subtlely improved, but this may be related to slight differences in slice position. 3. There has now been development of complete obliteration of the right lower lobe bronchus. Also, the right middle lobe bronchus is now obliterated. I cannot differentiate what represents mass in th e right infrahilar region from postobstructive atelectatic lung and may be this lung is diffusely inf iltrated. 4. Bilateral pleural effusions, right larger than left, stable. 5. Sclerotic bone lesions stable. POS: TPC
[2018-07-12] MEDS ORDERED: Iopamidol 370 76% 100 ML VIAL ONE (16:28)
== END 2018-07-12 08:48 | disposition home or self-care (01) ==
LOC: BICCT 08:47 → CT 08:48
PROVIDERS: ATTEND Internal Medicine Hematology & Oncology
DX: C34.81 Malignant neoplasm of overlapping sites of right bronchus and lung (principal); R59.0 Localized enlarged lymph nodes; J98.09 Other diseases of bronchus, not elsewhere classified; M89.9 Disorder of bone, unspecified; J90 Pleural effusion, not elsewhere classified; K76.89 Other specified diseases of liver
CPT/HCPCS: 71260; Q9967

== ENCOUNTER 2018-07-22 12:00 | Outpatient (CLI) | payer MEDICARE ==
--- NOTE | 2018-07-22 14:32 | PET ---
PET CT: HISTORY: Lung cancer with possible hepatic disease to the liver. COMPARISON: CT chest dated 07/12/[address] dated 05/06/18. TECHNIQUE: A PET CT was performed from the skull base through the mid thigh after administration of 11.6 mCi F18 -FDG. FINDINGS: There is a 10.9 cm large right hilar mass causing atelectasis of the right middle and lower lobes. Th is mass has a max SUV value of 7.4 and extends to the subcarinal location within the mediastinum. The re is a separate subcarinal left mediastinal lymph node with a max SUV value of 3.5. There is a promi nent pretracheal lymph node with a max SUV value of 3.8. There are bilateral pleural effusions which do not demonstrate hypermetabolic activity. There is focal increased metabolic activity/hypermetabolic activity in the right lobe of the liver co rresponding to the area where the findings are seen on the contrast enhanced chest CT in the right lo be of the liver. These regions have a max SUV value of 5.6. The lesions are difficult to see on a non contrast examination used for CT attenuation correction on this exam. No suspicious areas of hypermetabolic activity are seen in the neck. No suspicious areas of hypermeta bolic activity are seen in the bones. CT images used for attenuation correction show atherosclerotic calcifications in the aorta. A lipoma is seen in the right pelvic musculature adjacent to the right hip. Degenerative changes are seen in t he spine. IMPRESSION: There is a large right lung mass consistent with the patient's diagnosis of lung cancer. There appear s to be metastatic disease to the mediastinum and to the liver. POS: OWEN
== END 2018-07-22 12:01 | disposition home or self-care (01) ==
LOC: PET 12:00
PROVIDERS: ATTEND Internal Medicine Hematology & Oncology
DX: C34.90 Malignant neoplasm of unspecified part of unspecified bronchus or lung (principal); R91.8 Other nonspecific abnormal finding of lung field
CPT/HCPCS: 78815; A9552